=== PATIENT | male | born 1935 | race Caucasian/White ===

== ENCOUNTER → 2016-11-05 | Outpatient (CLI) | payer OTHER, BC ==
[~2016-11-05] MED LIST: ASPI81TA21 PO; CHOL1TAB42 PO; CIPR0.3S4 OPL; COEN100C15 PO; DMX250; LOSA50TA54 PO; MISC1CAP60 PO; MULT-845 PO; PRED1SUS3; SIMV40TA4 PO; TERA5CAP PO; cipro
--- NOTE | 2016-11-05 22:24 | DIAGNOSTIC IMAGING REPORT ---
TWO VIEW CHEST CLINICAL HISTORY: Abnormal weight loss. FINDINGS: PA and lateral chest radiographs are compared to study dated 04/26/2008 and correlated with chest CT dated 07/30/2005. The PA view is degraded by patient rotation. The heart is enlarged. The mediastinal contour is within normal limits. The pulmonary vasculature is noncongested. Chronic interstitial thickening is similar to previous. No airspace consolidation or pleural effusion is identified. There is no pneumothorax. The skeletal structures are osteopenic. Degenerative change is noted throughout the thoracic spine. There are healed right-sided rib fractures. IMPRESSION: 1. Cardiomegaly with no active disease in the chest. 2. No pulmonary lesion is identified by chest x-ray. Note that x-rays is insensitive as a screening tool for lung cancer. If there is clinical concern for pulmonary neoplasm then a chest CT should be considered. Electronically signed by: Kole Sawyer M.D. 11/05/2016 10:23 PM Dictated Date/Time: 11/05/2016 10:21 PM
== END | disposition home or self-care (01) ==
LOC: C.RAD 21:07
PROVIDERS: ATTEND Pediatrics
DX: R63.4 Abnormal weight loss (principal); R09.89 Other specified symptoms and signs involving the circulatory and respiratory systems; I51.7 Cardiomegaly

== ENCOUNTER → 2017-06-14 | Outpatient (CLI) | payer OTHER, BC ==
[~2017-06-14] MED LIST changes: +OPTIRAY 320 IV PRN
--- NOTE | 2017-06-14 14:57 | DIAGNOSTIC IMAGING REPORT ---
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 TECHNIQUE: Multidetector CT of the abdomen and pelvis was performed after the administration of intravenous contrast. IV contrast: 120 mL of Optiray 320. A dose lowering technique was used consistent with the principles of ALARA (as low as reasonably achievable). COMPARISON: 05/16/2013. CT DOSE (mGy.cm): The estimated cumulative dose is 1164.[address] chest. 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 Lung bases: Minimal basilar opacities, likely atelectasis. Normal heart size. Coronary artery and aortic valve calcification. No pericardial or pleural effusion. Liver: Normal morphology. Irregular hypodensity in segment 4A (series 6 image 88), present on prior exam and possibly hepatic cyst or hemangioma. Subcentimeter hypodensity in segment 8 (series 6 image 69), indeterminate but likely cyst. 2 additional hypodensities evident in segment 5, unchanged from prior and likely hepatic cysts (series 6 image 162). Patent hepatic vasculature. Biliary: No intrahepatic or extrahepatic biliary ductal dilatation. Gallbladder decompressed. Pancreas: Normal. Spleen: Normal. Adrenal glands: Normal. Kidneys and ureters: Few hypodensities in the kidneys, the largest on the right measuring 1.7 cm, likely simple cysts though many too small to characterize. No nephrolithiasis. No hydronephrosis. Ureters normal. Bladder: Circumferential bladder wall thickening likely indicates chronic outlet obstruction. Pelvic organs: Prostate enlargement likely secondary to benign prostatic hyperplasia. Seminal vesicles are prominent bilaterally with superolateral extension of the left seminal vesicle beyond what is expected (series 6 image 354). Bowel: Limited diverticulosis of the sigmoid colon. The appendix is normal. No bowel obstruction. Peritoneal cavity: No free fluid or intraperitoneal gas. Lymph nodes: No enlarged lymph nodes in the abdomen or pelvis. Vasculature: Atherosclerosis of the normal caliber abdominal aorta. IVC patent. Abdominal wall: Bilateral varicoceles may be present. Musculoskeletal: Degenerative changes of the spine. Sclerotic lesion in the L5 vertebral body likely bone island. IMPRESSION: 1. No definitive evidence of intra-abdominal malignancy. No lymphadenopathy. 2. Prostatomegaly likely secondary to underlying benign prostatic hyperplasia. However, given the somewhat of normal prominence of the left seminal vesicle, MR of the prostate to be considered for further evaluation. The report will be called/faxed according to standard departmental protocol. Electronically signed by: Christian Hayes M.D. 06/14/2017 2:55 PM Dictated Date/Time: 06/14/2017 2:47 PM
--- NOTE | 2017-06-14 14:57 | DIAGNOSTIC IMAGING REPORT ---
CT OF THE CHEST WITH IV CONTRAST CLINICAL HISTORY: Cough. Abnormal weight loss. COMPARISON STUDY: Chest CT July 30, 2005. TECHNIQUE: Following IV administration of 120 mL of Optiray-320, helical axial images of the chest were obtained. Sagittal and coronal reconstructions were viewed as well as maximal intensity projections on an independent 3-D workstation. A dose lowering technique was utilized adhering to the principles of ALARA. CT DOSE: 1164.40 mGycm FINDINGS: No enlarged axillary or hilar lymph nodes are present. There are few mildly enlarged mediastinal lymph nodes, including a precarinal lymph node that measures 1.1 cm in short axis diameter. There is an additional precarinal lymph node that measures 1.2 cm in short axis diameter. These nodes have mildly increased in size since exam of July 24, 2005. The heart is mildly enlarged. There is no pneumothorax or pleural effusion. There are no suspicious pulmonary nodules. There is no consolidation to suggest pneumonia. No suspicious osseous lesions are present. The abdomen and pelvis will be reported separately. A segment 8/4A hepatic lesion was shown on earlier studies to likely reflect a hemangioma. This is unchanged. IMPRESSION: 1. Several mildly enlarged mediastinal lymph nodes which have increased in size since chest CT of July 24, 2005. These nodes are not overtly suspicious but remain indeterminate. A follow up chest CT in 6 months to ensure stability is recommended. 2. No suspicious prominent nodules. 3. No acute intrathoracic findings. Electronically signed by: Terrell Turk M.D. 06/14/2017 2:55 PM Dictated Date/Time: 06/14/2017 2:42 PM
== END | disposition home or self-care (01) ==
LOC: C.CTS 14:01
PROVIDERS: ATTEND Family Medicine
DX: R63.4 Abnormal weight loss (principal); R51 Headache; R05 Cough; Z79.899 Other long term (current) drug therapy

== ENCOUNTER → 2017-07-03 | Outpatient (CLI) | payer OTHER, BC ==
[~2017-07-03] MED LIST changes: +ALEN1TAB PO; +ATOR-24 PO; +CHOL20007 PO; +DRY EYES OPB; +FERR27TA5 PO; +FLV1 PO; +METH2.5T PO; +MISCTAB78 PO; -OPTIRAY 320 IV PRN; +RMCI IV; +TAMS0.4C38 PO
--- NOTE | 2017-07-04 08:25 | DIAGNOSTIC IMAGING REPORT ---
PET/CT SKULL-THIGH CLINICAL HISTORY: 82 years-old Male presenting with MALIGNANT (PRIMARY) NEOPLASM,UNSPECIFIED, enlarged mediastinal lymph nodes, tonsillar findings. TECHNIQUE: PET/CT was performed from the vertex through the proximal thighs following the intravenous administration of 13.22 mCi of F18-FDG. Blood glucose level 86 mg/dL. The injection was performed at 2:14 PM and imaging began at 3:[address] was performed for attenuation correction purposes and anatomic localization. COMPARISON: Chest CT from 06/14/2017, CT of the abdomen and pelvis from 06/14/2017. CT DOSE (mGy.cm): The estimated cumulative dose is 1564.09. FINDINGS: Head and neck: No FDG-avid mass in the visualized portion of the head or neck. No FDG avid or enlarged lymph nodes in the neck. Chest: Normal thyroid and thoracic inlet. Prominent mediastinal and bilateral hilar lymph nodes, which are mildly FDG avid. An index node in the precarinal region measures 13 mm in the short axis. Atherosclerosis of the aorta. Aortic valve, mitral annular, and coronary artery calcification. Normal heart size. No pericardial or pleural effusion. Subpleural solid 3 mm nodule at the right apex (series 2 image 63). The degree of volume loss and consolidation in the right lung on prior chest CT from 2006 makes assessment for the chronicity of this finding difficult. This was present on most recent CT earlier this month. Minimal dependent changes likely atelectasis. Peripheral solid triangular 3 mm nodule in the lingula was not present in 2006 but is unchanged from most recent prior. Central airways patent. Abdomen and pelvis: Normal physiologic distribution of radiotracer in the gastrointestinal and genitourinary tracts. No FDG avid lymphadenopathy or mass lesion. Photopenic lesion at the medial lower pole the right kidney likely simple cyst. Circumferentially thick-walled bladder suggest chronic outlet obstruction. Prostatic megaly. No focal FDG avidity within the prostate. No focal FDG avidity within the seminal vesicles. Moderate stool burden in the rectum. Musculoskeletal: Degenerative changes in the spine. No destructive or FDG avid osseous lesion. IMPRESSION: 1. Mildly FDG avid mediastinal and bilateral hilar lymphadenopathy. No other sites of lymphadenopathy. The degree of FDG avidity could suggest mild reactive lymph nodes though no evidence of an acute intrathoracic is suggested. A low level lymphomatous disease is not excluded. Differential considerations include sarcoidosis. Continued follow-up recommended. 2. Solid pulmonary nodules measuring up to 3 mm. 3. No abnormality of the head or neck. 4. Circumferential bladder wall thickening likely chronic bladder outlet obstruction in the setting of prostatomegaly. Electronically signed by: Christian Hayes M.D. 07/04/2017 8:23 AM Dictated Date/Time: 07/04/2017 6:55 AM
== END | disposition home or self-care (01) ==
LOC: C.PET 13:55
PROVIDERS: ATTEND Internal Medicine Hematology & Oncology
DX: C80.1 Malignant (primary) neoplasm, unspecified (principal)

== ENCOUNTER 2017-07-11 09:56 | Day surgery (SDC) | payer OTHER, BC ==
[2017-07-09 13:25] VITALS: BMI 23.0
--- NOTE | 2017-07-09 13:46 | PAT Medication Instructions ---
Service Date Jul 09, 2017. Current Home Medication List Alendronate Sodium (Binosto), 70 MG PO WEEKLY Aspirin Enteric Coated (Ecotrin Or Generic), 81 MG PO HS Atorvastatin (Lipitor), 40 MG PO Q2D Cholecalciferol (Vitamin D3), 1 TAB PO QPM Coenzyme Q10 (Ubidecarenone) (Co Q10), 100 MG PO HS Ferrous Gluconate (Iron), 27 MG PO QPM Folic Acid (Folic Acid), 1 MG PO QPM Infliximab (Remicade), 100 MG IV [id number] Losartan Potassium (Cozaar), 50 MG PO HS Methotrexate (Methotrexate), 5 TAB PO weeekly Misc Natural Products (Osteo Bi-Flex Advanced Do), 1 TAB PO QPM Multiple Vitamins W/ Minerals (Centrum Silver Adult 50+), 1 TAB PO HS Tamsulosin Hcl (Flomax), 0.4 MG PO QPM [Dry Eyes], 1 DROP OPB PRN Medication Instructions For Your Scheduled Surgery - Hold the following medications 2 weeks prior to surgery: Misc Natural Products (Osteo Bi-Flex Advanced Do), 1 TAB PO QPM Coenzyme Q10 (Ubidecarenone) (Co Q10), 100 MG PO HS - Check with surgeon and prescribing physician for instructions: Aspirin Enteric Coated (Ecotrin Or Generic), 81 MG PO HS Methotrexate (Methotrexate), 5 TAB PO weekly Infliximab (Remicade), 100 MG IV [id number] - Hold the following medications 24 hours prior to surgery: Losartan Potassium (Cozaar), 50 MG PO HS - Continue as directed: Atorvastatin (Lipitor), 40 MG PO Q2D Alendronate Sodium (Binosto), 70 MG PO WEEKLY - Take the following medications the morning of surgery with a sip of water: [Dry Eyes], 1 DROP OPB PRN (if needed) - Take the following medications as scheduled the night before surgery: [Dry Eyes], 1 DROP OPB PRN (if needed) Tamsulosin Hcl (Flomax), 0.4 MG PO QPM Multiple Vitamins W/ Minerals (Centrum Silver Adult 50+), 1 TAB PO HS Ferrous Gluconate (Iron), 27 MG PO QPM Folic Acid (Folic Acid), 1 MG PO QPM Cholecalciferol (Vitamin D3), 1 TAB PO QPM If you have any questions please call us at [phone] or [phone] or [phone]
--- NOTE | 2017-07-09 14:42 | DIAGNOSTIC IMAGING REPORT ---
FLEXION-EXTENSION LATERAL VIEWS OF CERVICAL SPINE (3 VIEWS) CLINICAL HISTORY: PREOP, RHEUMATOID ARTHRITIS COMPARISON STUDY: No previous studies for comparison. FINDINGS: There are multilevel degenerative changes present. The prevertebral soft tissues are normal. There is 3.6 mm of retrolisthesis of C4 on C5. There is no significant instability on flexion or extension. IMPRESSION: 1. Multilevel degenerative change 2. No evidence of instability on flexion or extension Electronically signed by: Emmanuel Crespo M.D. 07/09/2017 2:41 PM Dictated Date/Time: 07/09/2017 2:39 PM
[2017-07-09 15:01] LABS: PTT PATIENT 28.9 SECONDS (21.0-31.0)
[~2017-07-11] VITALS: Ht 172.7 cm; Wt 66.5 kg
--- NOTE | 2017-07-11 06:36 | History and Physical ---
History & Physical Date of Service Jul 11, 2017. History & Physical History of Present Illness 82-year-old gentleman here for EBUS evaluation of mediastinal adenopathy: Patient has been seen by his primary care as well as Dr. King from the [facility]. They are both concerned as this patient is noted to have a 3-6 months window of unintentional weight loss approximately 30 pounds with a chronic intermittent productive cough at that time and notable night sweats. The patient is from [facility] but has no history of active TB. Approximately a year ago he was diagnosed with rheumatoid arthritis and has been treated with methotrexate, prednisone and Remicade. 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 He has been exposed to multiple different worker's from around the world as well as multiple different agents in an older buildings environment. At this time the patient does note over the last 2 weeks he has had mild improvement in his cough but continues to have postnasal drip and some mild signs of sinusitis. At this time he denies current night sweats but has had them in the past. He also denies continue weight loss, pleurisy or classic cardiac chest pain. CT chest abdomen 06/14/2017: Mild to moderately Enlarged mediastinal hilar lymph nodes which have notably increased in size since CT of 07/24/2005 No definitive evidence of intra-abdominal malignancy/adenopathy PmHx: 1. Microcytic anemia/anemia of chronic disease 2. Adenomatous polyp of the colon with moderately severe atypia 3. Benign prostatic hypertrophy 4. Tonsillitis 5. Nose bleeds has been evaluated by ENT physician Dr. Harden 6. 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 Colonoscopy-polypectomy 2. 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 Family history of Cancer 2. Family history of Heart Disease 3. Family history of Hypertension Social History Alcohol Use (History) Former smoker (Z87.891) Former smoker (Z87.891) Marital History - Home medications 1. Alendronate 2. Aspirin 81 mg 3. Atorvastatin 40 mg 4. Benzonate 100 mg q.8 hours 5. Choecalciferol 1000 units daily 6. Iron sulfate 325 mg daily 7. Folic acid replacement 8. Glucosamine chondroitin 9. Infliximab IV 10. Losartan daily 11. Methotrexate weekly 12. Prednisone 2.5 mg daily 13. To wean sildenafil 100 milligram tablets p.o. daily 14. Tomsulosin 0.4 mg extended release Allergies 1. No Known Drug Allergies Vital Signs Height: 5 ft 9 in Weight: 151 lb 9 oz BMI Calculated: 22.38 BSA Calculated: 1.84 O2 Saturation: 98 Temperature: 98 F, Oral Blood Pressure: 126 / 72, LUE, Sitting Heart Rate: 78 Respiration: 16 Physical Exam Constitutional General appearance: Abnormal. Thin male but in no apparent distress. Eyes Conjunctiva and lids: No swelling, erythema, or discharge. Pupils and irises: Equal, round and reactive to light. Ears, Nose, Mouth, and Throat External inspection of ears and nose: Normal. Otoscopic examination: Abnormal. Bilateral nasal erythema right greater than left no active bleeding. Oropharynx: Abnormal. Notable posterior erythema with cobblestoning. Pulmonary Respiratory effort: No increased work of breathing or signs of respiratory distress. Auscultation of lungs: Clear to auscultation. Cardiovascular Palpation of heart: Normal PMI, no thrills. Auscultation of heart: Normal rate and rhythm, normal S1 and S2, without murmurs. Examination of extremities for edema and/or varicosities: Normal. Abdomen Abdomen: Non-tender, no masses. Liver and spleen: No hepatomegaly or splenomegaly. Lymphatic Palpation of lymph nodes in neck: No lymphadenopathy. Musculoskeletal Gait and station: Normal. Digits and nails: Normal without clubbing or cyanosis. Inspection/palpation of joints, bones, and muscles: Normal. Skin Skin and subcutaneous tissue: Normal without rashes or lesions. Neurologic Cranial nerves: Cranial nerves 2-12 intact. Reflexes: 2+ and symmetric. Sensation: No sensory loss. Psychiatric Orientation to person, place and time: Normal. Mood and affect: Normal.
[~2017-07-11 09:56] MED LIST changes: -CHOL1TAB42 PO; -CIPR0.3S4 OPL; -DMX250; +LACTATED RINGER'S 1000ML 1,000 ML IV SCH; -MISC1CAP60 PO; -PRED1SUS3; -SIMV40TA4 PO; -TERA5CAP PO; -cipro
[2017-07-11 10:25] VITALS: BP 142/78; PULSE 60; TEMP 36.6; O2SAT 97; Ht 172.7 cm; Wt 66.5 kg
[2017-07-11] MEDS ORDERED: NEOSTIGMINE METHYLSULFATE 5 MG/5 ML SYR ONE (11:03)
[2017-07-11] MEDS ORDERED: GLYCOPYRROLATE INJ 0.2 MG/ML VIAL ONE (11:03)
[2017-07-11] MEDS ORDERED: PROPOFOL IV EMULSION 10 MG/ML 20 ML VIAL IV ONE (11:03)
[2017-07-11] MEDS ORDERED: ONDANSETRON INJ 2 MG/ML 2 ML VIAL ONE (11:03)
[2017-07-11] MEDS ORDERED: LIDOCAINE HCL 2% 2 ML VIAL (20MG/ML) ONE (11:03)
[2017-07-11] MEDS ORDERED: DEXAMETHASONE SOD INJ 4 MG/ML VIAL ONE (11:03)
[2017-07-11] MEDS ORDERED: MIDAZOLAM HCL 1 MG/ML 2ML VIAL ONE (11:04)
[2017-07-11] MEDS ORDERED: FENTANYL CITRATE INJ 50 MCG/1 ML 2 ML VIAL ONE (11:04)
[2017-07-11] MEDS ORDERED: HYDROmorphone INJ 0.5 MG/0.5 ML SYR IV PRN (11:15)
[2017-07-11] MEDS ORDERED: EpHEDrine SULFATE INJ 50 MG/ML AMP IV PRN (11:15)
[2017-07-11] MEDS ORDERED: MEPERIDINE HCL 25 MG/ML CARP IV PRN (11:15)
[2017-07-11] MEDS ORDERED: ATROPINE SULFATE 0.1 MG/ML 5ML SYR IV PRN (11:15)
[2017-07-11] MEDS ORDERED: ONDANSETRON INJ 2 MG/ML 2 ML VIAL IV PRN (11:15)
[2017-07-11] MEDS ORDERED: FENTANYL CITRATE INJ 50 MCG/1 ML 2 ML VIAL IV PRN (11:15)
--- NOTE | 2017-07-11 11:32 | History & Physical Bridge Note ---
H&P Re-Evaluation Bridge Note: I have examined the patient, reviewed the History & Physical and in the interval since the performance of the History & Physical I have noted the following changes of clinical significance: No changes noted
[2017-07-11] MEDS ORDERED: EpHEDrine SULFATE 50MG/5ML SYR ONE (12:22)
--- NOTE | 2017-07-11 12:47 | Bronchoscopy Procedure Note ---
Bronchoscopy Procedure Note Procedure: Flexible-Bronchoscopy, EBUS, FNA, BAL Consent: Obtained through the patient placed into the chart Pre-Procedural Dx: Mediastinal adenopathy Post-Procedural Dx: Mediastinal adenopathy Analgesia: GETA Sedation: GETA Procedure: The Olympus video bronchoscope and EBUS scope were used for this procedure Initially the flexible bronchoscope was used for evaluation of the airways. An LMA Size 5 was used for this procedure and properly positioned Vocal Cords: Anatomically WNL Sub-Glottis & Trachea: Anatomically WNL Sandra: Anatomically within normal limits Right bronchial tree: Right mainstem bronchus: Anatomically within normal limits Right upper lobe: Anatomically within normal limits Bronchus intermedius: Anatomically within normal limits Right middle lobe: Anatomically within normal limits Right lower lobe: Anatomically within normal limits Findings: No significant findings noted Left bronchial tree: Left mainstem bronchus: Anatomically within normal limits Left upper lobe: Anatomically within normal limits Lingula: Anatomically within normal limits Left lower lobe: Anatomically within normal limits Findings: No significant findings noted EBUS/LASHON: FNA Yasir Stations: 7: # of passes 6 BAL: Lingula EBL: none Complications: None Follow-up: PACU
--- NOTE | 2017-07-11 12:50 | Discharge Instructions ---
Discharge Instructions Date of Service Jul 11, 2017. Admission Reason for Admission: Medial Stinal Lymphadenopathy Discharge Discharge Diagnosis / Problem: Mediastinal adenopathy Discharge Goals Goal(s): Diagnostic testing Activity Recommendations Activity Limitations: resume your previous activity Driving or Machine Use: resume 1 day after discharge . Instructions / Follow-Up Instructions / Follow-Up With Dr. Suazo in the [facility] pulmonary clinic Current Hospital Diet Patient's current hospital diet: Discharge Diet Recommended Diet: Regular Diet Procedures Procedures Performed: Endobronchial Ultrasound Guided Bronchoscopy, Flexible Bronchoscopy, Fine Needle Aspiration, Bronchial Washings Pending Studies Studies pending at discharge: no Medical Emergencies . Who to Call and When: Medical Emergencies: If at any time you feel your situation is an emergency, please call 911 immediately. . Non-Emergent Contact Non-Emergency issues call your: [employer] Call Non-Emergent contact if: you have a fever, temperature is above 101 . . "Provider Documentation" section prepared by Asa Suazo. .
[2017-07-11] MEDS: LABETALOL HCL IV 5 MG/ML 20ML IV PRN ×3 (13:47→14:12)
[2017-07-11 14:30] VITALS: BP 196/92; PULSE 62; TEMP 36.6; O2SAT 95
--- NOTE | 2017-07-11 14:40 | Anesthesiology Progress Note ---
Anesthesia Post Op Note Date & Time Jul 11, 2017 at 14:40 Vital Signs Pain Intensity: 0 Vital Signs Past 12 Hours Date Time Temp Pulse Resp B/P (MAP) Pulse Ox O2 Delivery O2 Flow Rate FiO2 07/11/17 14:20 65 15 179/96 99 Room Air 07/11/17 14:10 62 28 179/101 100 Room Air 07/11/17 14:00 59 16 179/91 100 Room Air 07/11/17 13:50 36.3 64 20 185/106 100 Room Air 07/11/17 13:40 63 13 185/94 100 Room Air 07/11/17 13:30 69 18 176/95 100 Room Air 07/11/17 13:20 77 24 184/93 100 Oxymask 10 07/11/17 13:10 88 23 168/91 100 Oxymask 10 07/11/17 13:01 36.5 81 16 174/86 99 Oxymask 10 07/11/17 10:25 36.6 60 18 142/78 (99) 97 Room Air Notes Mental Status: alert / awake / arousable, participated in evaluation Pt Amnestic to Procedure: Yes Nausea / Vomiting: adequately controlled Pain: adequately controlled Airway Patency, RR, SpO2: stable & adequate BP & HR: stable & adequate Hydration State: stable & adequate Anesthetic Complications: no major complications apparent
[2017-07-11 15:00] VITALS: BP 166/79; PULSE 70; O2SAT 92
[2017-07-11 15:30] VITALS: BP 165/83; PULSE 74; TEMP 36.7; O2SAT 95
--- NOTE | 2017-07-11 15:58 | Consultant Recommendations ---
Varnisher Apprentice Recommendations Date of Service Jul 11, 2017. Varnisher Apprentice Recommendations Pulmonary Follow Up with Dr. Suazo July 18, 2017 at 1:00pm
== END 2017-07-11 16:06 | disposition home or self-care (01) ==
LOC: C.ACU 09:56
PROVIDERS: ATTEND Internal Medicine Critical Care Medicine
DX: R59.0 Localized enlarged lymph nodes (principal); M06.9 Rheumatoid arthritis, unspecified; N40.0 Benign prostatic hyperplasia without lower urinary tract symptoms; Z82.49 Family history of ischemic heart disease and other diseases of the circulatory system; Z87.891 Personal history of nicotine dependence; Z79.82 Long term (current) use of aspirin; Z98.42 Cataract extraction status, left eye; Z90.89 Acquired absence of other organs; I10 Essential (primary) hypertension; E78.5 Hyperlipidemia, unspecified; M19.90 Unspecified osteoarthritis, unspecified site; M81.0 Age-related osteoporosis without current pathological fracture

== ENCOUNTER → 2017-11-05 | Outpatient (CLI) | payer OTHER, BC ==
[~2017-11-05] MED LIST changes: +ASPI-319 PO; -ASPI81TA21 PO; -LACTATED RINGER'S 1000ML 1,000 ML IV SCH
[2017-11-05 17:04] LABS: BLOOD UREA NITROGEN 13 mg/dl (7-18); CREATININE 0.93 mg/dl (0.60-1.40)
== END | disposition home or self-care (01) ==
LOC: C.LAB1850 16:02
PROVIDERS: ATTEND Internal Medicine Critical Care Medicine
DX: R59.0 Localized enlarged lymph nodes (principal); R93.8 Abnormal findings on diagnostic imaging of other specified body structures; I10 Essential (primary) hypertension

== ENCOUNTER → 2017-11-19 | Outpatient (CLI) | payer OTHER, BC ==
[~2017-11-19] MED LIST changes: +OPTIRAY 320 IV PRN
--- NOTE | 2017-11-19 10:11 | DIAGNOSTIC IMAGING REPORT ---
CT OF THE CHEST WITH IV CONTRAST CLINICAL HISTORY: Mediastinal lymphadenopathy. COMPARISON STUDY: Chest CT June 14, 2017 and July 25, 2015. PET/CT July 03, 2017. TECHNIQUE: Following IV administration of 91 mL of Optiray-320, helical axial images of the chest were obtained. Sagittal and coronal reconstructions were viewed as well as maximal intensity projections on an independent 3-D workstation. A dose lowering technique was utilized adhering to the principles of ALARA. CT DOSE: 320.47 mGy.cm FINDINGS: The heart is mildly enlarged. There is no pericardial effusion. A prominent right hilar lymph node has slightly decreased in size since CT of June 14, 2017. This node measures 9 mm in short axis diameter. A precarinal lymph node shown on image 116 of 317 measures 9 mm in short axis diameter. It previously measured 1.2 cm. A lower right paratracheal lymph node shown on image 107 measures 1.1 cm in short axis diameter. This is slightly decreased since prior PET/CT. No suspicious pulmonary nodules are present. Central airways are patent. There is no consolidation. Bony thorax and upper abdomen are unremarkable. IMPRESSION: 1. Slight interval decrease in size of mediastinal and hilar lymph nodes since prior exam of July 03, 2017. This suggests a benign etiology. 2. Mild cardiomegaly. 3. No acute intrathoracic findings. Electronically signed by: Terrell Turk M.D. 11/19/2017 10:10 AM Dictated Date/Time: 11/19/2017 9:58 AM
== END | disposition home or self-care (01) ==
LOC: C.CTS 09:43
PROVIDERS: ATTEND Internal Medicine Critical Care Medicine
DX: R59.0 Localized enlarged lymph nodes (principal)

== ENCOUNTER 2021-10-26 17:28 | Observation (INO) ==
--- NOTE | 2021-10-26 17:48 | Emergency Department Note ---
Impression & Plan Fall, HTN (hypertension), Laceration, Acute confusion ED Provider Note NAME: MICHELLE CARDENAS AGE: 86 SEX: M : 1935 ARRIVES VIA: Ambulance INFORMANT: Patient, EMS ED PROVIDER(S): Jose Martini DO CHIEF COMPLAINT: Fall HPI: Patient is an 86-year-old gentleman with a past medical history of BPH, elevated PSA, rheumatoid arthritis, hypertension, BPH who presents to the ER following a mechanical fall. He notes he was walking downtown at [employer] and was going around the stadium and was going down on the incline and lost control and fell and hit his head. He does not believe he passed out. He does admit to a headache. Denies any neck pain. No chest pain or shortness of breath. No belly or back pain. He does complain of right hand/wrist pain. No double vision. No pain with biting down. ROS: See above HPI for pertinent positives & negatives. A total of 10 systems reviewed and were otherwise negative. PAST MEDICAL HISTORY:See Below PAST SURGICAL HISTORY:See Below FAMILY HISTORY:See Below SOCIAL HISTORY:See Below HOME MEDICATIONS:See Below ALLERGIES:See Below VITALS:See Below PHYSICAL EXAMINATION: GENERAL: alert, well appearing, well nourished, no distress, non-toxic HEAD: Bruising and swelling over the right eyebrow and around the right eye including the upper and lower lids with the right eyes swollen shut. Abrasion/laceration over the bridge of nose with small amount of venous oozing and multiple small lacerations over the right eyebrow. EYE EXAM: normal conjunctiva, PERRL and EOM's intact OROPHARYNX: no exudate, no erythema, lips, buccal mucosa, and tongue normal and mucous membranes are moist NECK: supple, no nuchal rigidity, no adenopathy, non-tender CHEST: stable to compression anteriorly and posteriorly LUNGS: clear to auscultation. Normal chest wall mechanics HEART: no murmurs, S1 normal and S2 normal ABDOMEN: abdomen soft, non-tender, normo-active bowel sounds, no masses, no rebound or guarding. PELVIS: stable to compression anteriorly and posteriorly BACK: Back is symmetrical on inspection and there is no deformity, no midline tenderness, no CVA tenderness. UPPER EXTREMITIES: full active and passive range of motion of all joints without tenderness to palpation LOWER EXTREMITIES: full active and passive range of motion of all joints without tenderness to palpation NEURO EXAM: Awake alert oriented to person, place but not year, with repetitive statements, cranial nerves II-XII grossly intact, normal speech, no gross weakness of arms, no gross weakness of legs. GCS: 14. MEDICAL DECISION MAKING: Patient is an 86-year-old gentleman who presents ER following mechanical fall with repetitive questioning. IV was established blood work is obtained. Labs show no significant leukocytosis or anemia. BMP along with LFTs bilirubin and troponin was unremarkable. UA was clean. Alcohol and COVID were negative. CT head face and cervical spine showed no acute fractures. On exam he has no double vision he has full range of motion of the right eye. Lacerations were repaired by my PA. Please see her note for further details. Tetanus was last updated in 2020 per chart. Confusion has been improving significantly but due to the persistent confusion discussed with the hospitalist for further evaluation Christine Willis. Triage Nursing notes reviewed. Limited review of prior medical records performed Vital Signs: reviewed and remarkable for HTN and tachy Differential diagnosis: Differential diagnoses include major intracranial, cervical, spinal, thoracic, abdominal, pelvic and neurologic injury. Fracture, contusion, sprain, strain, laceration, abrasions included as well. ER treatment provided: See below Diagnostics interpreted by me: ECG: Sinus rhythm rate 96 Left axis No PVCs QTC 426 Cardiac Monitoring: An order was placed for continuous cardiac monitoring. The monitor shows a rate of 112 with sinus rhythm. Laboratory studies: As stated above and show below. 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 Rheumatoid arthritis of upper arm Rib fractures Tinnitus Surgical History H/O hernia repair History of tonsillectomy Family History Mother Cancer Other No family history of adverse response to anesthesia No family history of bleeding disorder Social History Smoking Status: Never smoker Hx Alcohol Use: Yes Hx Substance Use: No Preferred Language: Iranian Current Living Situation: Alone current occupational status: retired Feels Safe at Home: Yes Allergies Allergies Allergy/AdvReac Type Severity Reaction Status Date / Time No Known Drug Allergies Allergy Verified 08/03/21 15:47 Home Meds Home Medications Medication Instructions Recorded Confirmed alendronate 70 mg tablet 70 mg PO GABRIEL 04/01/18 08/03/21 aspirin 81 mg tablet,delayed 81 mg PO .Q2D@HS 04/01/18 08/03/21 release (Adult Low Dose Aspirin) atorvastatin 40 mg tablet 40 mg PO HS 04/01/18 08/03/21 cholecalciferol (vitamin D3) 25 1,000 units PO HS 04/01/18 08/03/21 mcg (1,000 unit) capsule folic acid 1 mg tablet 1 mg PO HS 04/01/18 08/03/21 methotrexate sodium 2.5 mg tablet 15 mg PO WE 04/01/18 08/03/21 pqmwabvx-pzn-foezl acid 300 1 tab PO HS 04/01/18 08/03/21 mcg-lycopene 600 mcg-lutein 300 mcg tablet (Centrum Silver Men) tamsulosin 0.4 mg capsule (Flomax) 0.4 mg PO HS 04/01/18 08/03/21 Previous Rx's Medication Instructions Recorded gabapentin 100 mg capsule 100 mg PO .QHS #20 caps 05/31/20 (Neurontin) dutasteride 0.5 mg capsule 0.5 mg PO DAILY #90 caps 07/03/21 Results & Data (ED) Vital Signs Vital Signs - 24 hr 10/26/21 17:33 10/26/21 17:37 10/26/21 17:45 Pulse Rate 119 H Pulse Rate [Right Finger] 106 H Pulse Rhythm [Right Finger] Regular Pulse Strength [Right Finger] Normal Respiratory Rate 20 20 Respiratory Effort / Characteristics Non-Labored Non-Labored Respiratory Depth Normal Normal Blood Pressure 168/110 H Blood Pressure [Right Arm] 168/110 H Blood Pressure Mean 129 Blood Pressure Mean [Right Arm] 129 Blood Pressure Position [Right Arm] Pulse Oximetry 98 95 98 Oxygen Delivery Method Room Air Room Air Room Air Sepsis Recent Fever Within 48 Hours No Sepsis New/Unexplained Change in Mental Status N/A Sepsis Action Taken by Nursing No Action Required 10/26/21 19:21 10/26/21 19:30 10/26/21 20:00 Pulse Rate 107 H 99 H Pulse Rate [Right Finger] 100 H Pulse Rhythm [Right Finger] Pulse Strength [Right Finger] Respiratory Rate 16 14 16 Respiratory Effort / Characteristics Non-Labored Spontaneous Respiratory Depth Normal Blood Pressure 179/113 H 188/103 H Blood Pressure [Right Arm] 171/123 H Blood Pressure Mean 135 131 Blood Pressure Mean [Right Arm] 139 Blood Pressure Position [Right Arm] Lying Pulse Oximetry 98 95 97 Oxygen Delivery Method Room Air Sepsis Recent Fever Within 48 Hours Sepsis New/Unexplained Change in Mental Status Sepsis Action Taken by Nursing Laboratory Data Result diagrams: 10/26/21 17:35 10/26/21 17:35 Lab Results 10/26/21 10/26/21 10/26/21 Range/Units 17:35 17:35 17:35 WBC 4.83 (4.8-10.8) K/ul RBC 4.72 (4.63-6.08) M/uL Hgb 13.5 L (14.0-18.0) g/dl Hct 40.3 (40.1-51.0) % MCV 85.4 (80.0-100.0) fL MCH 28.6 (25.0-34.0) pg MCHC 33.5 (32.0-36.0) g/dL RDW Std Deviation 50.5 H (36.4-46.3) fL RDW Coeff of Daryl 16.4 H (11.5-14.5) % Plt Count 193 (130-400) K/uL MPV 12.2 (9.4-12.4) fL Immature Gran % (Auto) 0.4 % Neut % (Auto) 62.7 % Lymph % (Auto) 23.0 % [place] % (Auto) 11.6 % Eos % (Auto) 1.9 % Baso % (Auto) 0.4 % Neut # (Auto) 3.03 (1.4-6.5) K/uL Lymph # (Auto) 1.11 L (1.2-3.4) K/uL [place] # (Auto) 0.56 (0.24-0.82) K/uL Eos # (Auto) 0.09 (0-0.50) K/uL Baso # (Auto) 0.02 (0-0.2) K/uL Immature Gran # (Auto) 0.02 (0.00-0.02) K/uL Sodium 141 (136-145) mmol/L Potassium 3.5 (3.5-5.1) mmol/L Chloride 104 (98-107) mmol/L Carbon Dioxide 28 (21-32) mmol/L Anion Gap 9 (3-11) BUN 15 (6-23) mg/dl Creatinine 0.77 (0.6-1.4) mg/dl Est Cr Clr Drug Dosing 69.1 ml/min Est GFR ( Amer) 96.6 ml/min Est GFR (Non-Af Amer) 83.3 ml/min BUN/Creatinine Ratio 19.5 (10-20) Glucose 87 (70-99(Fasting)) mg/dl Calcium 9.0 (8.5-10.1) mg/dl Total Bilirubin 0.7 (0.2-1.0) mg/dl AST 34 (13-39) U/L ALT 29 (7-52) U/L Alkaline Phosphatase 77 (34-104) U/L Troponin I High Sens 10.6 (0-20) pg/ml Total Protein 7.1 (6.0-8.3) gm/dl Albumin 4.1 (3.4-5.0) gm/dl Globulin 3.0 (2.5-4.0) gm/dl Albumin/Globulin Ratio 1.4 (0.9-2) Urine Color Urine Appearance (Clear) Urine pH (4.5-7.5) Ur Specific Taberg (1.000-1.030) Urine Protein (Negative) Urine Glucose (UA) (Negative) Urine Ketones (Negative) Urine Blood (Negative) Urine Nitrite (Negative) Urine Bilirubin (Negative) Urine Urobilinogen (Negative) Ur Leukocyte Esterase (Negative) Urine WBC (Auto) (0-5) /hpf Urine RBC (Auto) (0-4) /hpf U Hyaline Cast (Auto) (0-5) /lpf U Epithel Cells (Auto) (0-5) /lpf Urine Bacteria (Auto) (Negative) Ethyl Alcohol mg/dL < 10.0 (<10.0) mg/dl SARS-CoV-2, RNA, NAAT (NEGATIVE) 10/26/21 10/26/21 Range/Units 18:02 Unknown WBC (4.8-10.8) K/ul RBC (4.63-6.08) M/uL Hgb (14.0-18.0) g/dl Hct (40.1-51.0) % MCV (80.0-100.0) fL MCH (25.0-34.0) pg MCHC (32.0-36.0) g/dL RDW Std Deviation (36.4-46.3) fL RDW Coeff of Daryl (11.5-14.5) % Plt Count (130-400) K/uL MPV (9.4-12.4) fL Immature Gran % (Auto) % Neut % (Auto) % Lymph % (Auto) % [place]ac % (Auto) % Eos % (Auto) % Baso % (Auto) % Neut # (Auto) (1.4-6.5) K/uL Lymph # (Auto) (1.2-3.4) K/uL [place] # (Auto) (0.24-0.82) K/uL Eos # (Auto) (0-0.50) K/uL Baso # (Auto) (0-0.2) K/uL Immature Gran # (Auto) (0.00-0.02) K/uL Sodium (136-145) mmol/L Potassium (3.5-5.1) mmol/L Chloride (98-107) mmol/L Carbon Dioxide (21-32) mmol/L Anion Gap (3-11) BUN (6-23) mg/dl Creatinine (0.6-1.4) mg/dl Est Cr Clr Drug Dosing ml/min Est GFR ( Amer) ml/min Est GFR (Non-Af Amer) ml/min BUN/Creatinine Ratio (10-20) Glucose (70-99(Fasting)) mg/dl Calcium (8.5-10.1) mg/dl Total Bilirubin (0.2-1.0) mg/dl AST (13-39) U/L ALT (7-52) U/L Alkaline Phosphatase (34-104) U/L Troponin I High Sens (0-20) pg/ml Total Protein (6.0-8.3) gm/dl Albumin (3.4-5.0) gm/dl Globulin (2.5-4.0) gm/dl Albumin/Globulin Ratio (0.9-2) Urine Color Yellow Urine Appearance Clear (Clear) Urine pH 8.0 H (4.5-7.5) Ur Specific Taberg 1.012 (1.000-1.030) Urine Protein Negative (Negative) Urine Glucose (UA) Negative (Negative) Urine Ketones Negative (Negative) Urine Blood Trace H (Negative) Urine Nitrite Negative (Negative) Urine Bilirubin Negative (Negative) Urine Urobilinogen Negative (Negative) Ur Leukocyte Esterase Negative (Negative) Urine WBC (Auto) 1-5 (0-5) /hpf Urine RBC (Auto) 0-4 (0-4) /hpf U Hyaline Cast (Auto) 1-5 (0-5) /lpf U Epithel Cells (Auto) 5-10 H (0-5) /lpf Urine Bacteria (Auto) Negative (Negative) Ethyl Alcohol mg/dL (<10.0) mg/dl SARS-CoV-2, RNA, NAAT NEGATIVE (NEGATIVE) Administered Medications Discontinued Medications Lidocaine HCl (Xylocaine 1%/Sod Bicarb 20 Ml Vial) 20 ml INFIL NOW ONE Stop: 10/26/21 19:22 Last Admin: 10/26/21 19:51 Dose: 20 ml Documented By: [id number] Imaging Data Radiologist's Impression: Chest X-Ray 10/26/21 17:39 XR chest 1V portable CLINICAL HISTORY: fall TECHNIQUE: Single frontal radiograph of the chest was obtained. Comparison: Comparison is made to chest radiograph 08/02/2005 FINDINGS: No lines and tubes are seen. The cardiomediastinal silhouette is normal. The lungs are clear. No evidence of pleural effusion or pneumothorax. IMPRESSION: No acute chest disease. ACT 112: Negative or not required by law. Electronically signed by: Yunior Oscar M.D. 10/26/2021 6:[address] 10/26/21 17:40 CT cervical spine wo con CLINICAL HISTORY: Trauma TECHNIQUE: Multidetector row helical CT of the cervical spine was performed without administration of intravenous contrast. Coronal and sagittal reformations were obtained. Automated dose lowering techniques and/or adjustment according to patient size were utilized for this exam. Comparison: None available at the time of this dictation. FINDINGS: No acute fractures or subluxations are identified. Degenerative changes are seen in the visualized spine. The alignment is normal. Soft tissues are unremarkable. IMPRESSION: No evidence of acute bony injury. ACT 112: Negative or not required by law. Electronically signed by: Yunior Oscar M.D. 10/26/2021 6:[address] 10/26/21 17:40 CT facial bones wo con CLINICAL HISTORY: Trauma TECHNIQUE: Multidetector row helical CT of the maxillofacial bones was performed without administration of intravenous contrast, and processed with bone and soft tissue algorithms. Coronal and sagittal reformations were obtained. Automated dose lowering techniques and/or adjustment according to patient size were utilized for this exam. Comparison: None available at the time of this dictation. FINDINGS: Nasal bones are normal. The mandible is intact. The temporomandibular joints are anatomically aligned. Pterygoid plates are intact. Zygomatic arches are intact. The globes are normal and symmetric, without proptosis, obvious disruption or lens dislocation. The orbital huang are intact. Retrobulbar gas is noted on the right. A hematoma is noted in the medial aspect of the right orbit. This results in the displacement of the globe. Extraocular muscles are normal and symmetric. Optic nerve sheath complexes are normal in course and caliber. Prominent soft tissue swelling is seen in the right periorbital tissues. Minimal sinus thickening is noted at the ethmoid air cells anteriorly. IMPRESSION: No acute facial fracture. Extensive hematoma about the right orbit, most prominently medially. There is subcutaneous emphysema tracking into the retrobulbar space superiorly on the right, however no fracture of the orbital wall is seen. ACT 112: Negative or not required by law. Electronically signed by: Yunior Oscar M.D. 10/26/2021 6:[address] 10/26/21 17:40 CT head/brain wo con CLINICAL HISTORY: Trauma Technique: Contiguous axial CT images of the head were acquired from the base of the skull to the vertex without intravenous contrast administration. Images were viewed in brain, subdural and bone windows. Automated dose lowering techniques and/or adjustment according to patient size were utilized for this exam. Comparison: None available at the time of this dictation. Findings: Areas of decreased attenuation are present in the periventricular and subcortical white matter bilaterally consistent with small vessel ischemic disease. Generalized cerebral atrophy with commensurate enlargement of the ventricles, sulci, and cisterns is also present. There is no acute intracranial hemorrhage or evidence of acute territorial infarction. No shift of the midline structures, mass effect, or extra-axial abnormalities are shown. Atherosclerotic calcifications are present in the intracranial segments of the internal carotid arteries. Imaged portions of the paranasal sinuses and mastoid air cells are clear. The orbits appear normal. There are no acute fractures of the calvaria. Soft tissue swelling is seen in the right frontal scalp and periorbital tissues Impression: No acute intracranial hemorrhage or skull fractures. Scalp swelling is seen in the right periorbital soft tissues. ACT 112: Negative or not required by law. Electronically signed by: Yunior Oscar M.D. 10/26/2021 6:26 PM Hand X-Ray 10/26/21 17:48 XR wrist RT min 3V routine, XR hand RT min 3V routine CLINICAL HISTORY: r wrist pain TECHNIQUE: 4 views of the right wrist and 3 views of the right hand were obtained. Comparison: None available at the time of this dictation. FINDINGS: There is no evidence of an acute fracture. Joint spaces are well-preserved. Soft tissue swelling is seen about the wrist. IMPRESSION: Soft tissue swelling without evidence of acute fracture. ACT 112: Negative or not required by law. Electronically signed by: Yunior Oscar M.D. 10/26/2021 6:48 PM Wrist X-Ray 10/26/21 17:48 XR wrist RT min 3V routine, XR hand RT min 3V routine CLINICAL HISTORY: r wrist pain TECHNIQUE: 4 views of the right wrist and 3 views of the right hand were obtained. Comparison: None available at the time of this dictation. FINDINGS: There is no evidence of an acute fracture. Joint spaces are well-preserved. Soft tissue swelling is seen about the wrist. IMPRESSION: Soft tissue swelling without evidence of acute fracture. ACT 112: Negative or not required by law. Electronically signed by: Yunior Oscar M.D. 10/26/2021 6:48 PM Discharge Plan Visit Data Chief Complaint: Fall ED Provider: Jose Martini Discharge Problem: Fall, HTN (hypertension), Laceration, Acute confusion Forms Stand Alone Forms: [employer] Prescriptions Prescriptions: No Action methotrexate sodium 2.5 mg tablet 15 mg PO WE Label Comments: Wednesdays alendronate 70 mg tablet 70 mg PO GABRIEL folic acid 1 mg tablet 1 mg PO HS tamsulosin [Flomax] 0.4 mg capsule 0.4 mg PO HS atorvastatin 40 mg tablet 40 mg PO HS [id number]-WY-lycopen-lutein [Centrum Silver Men] 300-600-300 mcg tablet 1 tab PO HS aspirin [Adult Low Dose Aspirin] 81 mg tablet,delayed release (DR/EC) 81 mg PO .Q2D@HS cholecalciferol (vitamin D3) 1,000 unit capsule 1,000 units PO HS dutasteride 0.5 mg capsule 0.5 mg PO DAILY Qty: 90 3RF gabapentin [Neurontin] 100 mg capsule 100 mg PO .QHS Qty: 20 0RF Rx Instructions: at bedtime Referrals Referrals: Anthony Hooker MD [Primary Care Provider] -
[2021-10-26 18:05] LABS: Basophils # (auto) 0.02 K/uL (0-0.2); Basophils % (auto) 0.4 %; Eosinophils # (auto) 0.09 K/uL (0-0.50); Eosinophils % (auto) 1.9 %; Hematocrit (blood only) 40.3 % (40.1-51.0); Hemoglobin 13.5 g/dl (14.0-18.0); Immature Granulocytes # (auto) 0.02 K/uL (0.00-0.02); Immature Granulocytes % (auto) 0.4 %; Lymphocytes # (auto) 1.11 K/uL (1.2-3.4); Mean Corpuscular Hemoglobin 28.6 pg (25.0-34.0); Mean Corpuscular Hgb Conc 33.5 g/dL (32.0-36.0); Mean Corpuscular Volume 85.4 fL (80.0-100.0); Mean Platelet Volume 12.2 fL (9.4-12.4); Monocytes # (auto) 0.56 K/uL (0.24-0.82); Monocytes % (auto) 11.6 %; Neutrophils # (auto) 3.03 K/uL (1.4-6.5); Neutrophils % (auto) 62.7 %; Platelet Count 193 K/uL (130-400); RDW Coefficient of Variation 16.4 % (11.5-14.5); RDW Standard Deviation 50.5 fL (36.4-46.3); Red Blood Count 4.72 M/uL (4.63-6.08); White Blood Count 4.83 K/ul (4.8-10.8)
--- NOTE | 2021-10-26 18:27 | CT Scan Report ---
CT head/brain wo con CLINICAL HISTORY: Trauma Technique: Contiguous axial CT images of the head were acquired from the base of the skull to the kody lucy without intravenous contrast administration. Images were viewed in brain, subdural and bone [facility]. Automated dose lowering techniques and/or adjustment according to patient size were utilized for this exam. Comparison: None available at the time of this dictation. Findings: Areas of decreased attenuation are present in the periventricular and subcortical white matter bilate rally consistent with small vessel ischemic disease. Generalized cerebral atrophy with commensurate e nlargement of the ventricles, sulci, and cisterns is also present. There is no acute intracranial hem orrhage or evidence of acute territorial infarction. No shift of the midline structures, mass effect, or extra-axial abnormalities are shown. Atherosclerotic calcifications are present in the intracran ial segments of the internal carotid arteries. Imaged portions of the paranasal sinuses and mastoid air cells are clear. The orbits appear normal. There are no acute fractures of the calvaria. Soft tissue swelling is seen in the right frontal scal p and periorbital tissues Impression: No acute intracranial hemorrhage or skull fractures. Scalp swelling is seen in the right periorbital soft tissues. ACT 112: Negative or not required by law. Electronically signed by: Yunior Oscar M.D. 10/26/2021 6:26 PM
[2021-10-26 18:28] LABS: Appearance Urine Clear (Clear); Bacteria Urine Automated Negative (Negative); Bilirubin Urine Negative (Negative); Blood Urine Trace (Negative); Color Urine Yellow; Glucose Urine UA Negative (Negative); Ketones Urine Negative (Negative); Leukocyte Esterase Urine Negative (Negative); Nitrite Urine Negative (Negative); Protein Urine Negative (Negative); RBC Urine Automated 0-4 /hpf (0-4); Specific Gravity Urine 1.012 (1.000-1.030); Urobilinogen Urine Negative (Negative)
--- NOTE | 2021-10-26 18:34 | CT Scan Report ---
CT cervical spine wo con CLINICAL HISTORY: Trauma TECHNIQUE: Multidetector row helical CT of the cervical spine was performed without administration of intravenous contrast. Coronal and sagittal reformations were obtained. Automated dose lowering techn iques and/or adjustment according to patient size were utilized for this exam. Comparison: None available at the time of this dictation. FINDINGS: No acute fractures or subluxations are identified. Degenerative changes are seen in the visualized sp ine. The alignment is normal. Soft tissues are unremarkable. IMPRESSION: No evidence of acute bony injury. ACT 112: Negative or not required by law. Electronically signed by: Yunior Oscar M.D. 10/26/2021 6:32 PM
--- NOTE | 2021-10-26 18:48 | CT Scan Report ---
CT facial bones wo con CLINICAL HISTORY: Trauma TECHNIQUE: Multidetector row helical CT of the maxillofacial bones was performed without administrati on of intravenous contrast, and processed with bone and soft tissue algorithms. Coronal and sagittal reformations were obtained. Automated dose lowering techniques and/or adjustment according to patient size were utilized for this exam. Comparison: None available at the time of this dictation. FINDINGS: Nasal bones are normal. The mandible is intact. The temporomandibular joints are anatomically aligned . Pterygoid plates are intact. Zygomatic arches are intact. The globes are normal and symmetric, without proptosis, obvious disruption or lens dislocation. The orbital huang are intact. Retrobulbar gas is noted on the right. A hematoma is noted in the medial as pect of the right orbit. This results in the displacement of the globe. Extraocular muscles are carleen l and symmetric. Optic nerve sheath complexes are normal in course and caliber. Prominent soft tis gwen swelling is seen in the right periorbital tissues. Minimal sinus thickening is noted at the ethmoid air cells anteriorly. IMPRESSION: No acute facial fracture. Extensive hematoma about the right orbit, most prominently medially. There is subcutaneous emphysema tracking into the retrobulbar space superiorly on the right, however no fra cture of the orbital wall is seen. ACT 112: Negative or not required by law. Electronically signed by: Yunior Oscar M.D. 10/26/2021 6:45 PM
--- NOTE | 2021-10-26 18:49 | XRay Report ---
XR wrist RT min 3V routine, XR hand RT min 3V routine CLINICAL HISTORY: r wrist pain TECHNIQUE: 4 views of the right wrist and 3 views of the right hand were obtained. Comparison: None available at the time of this dictation. FINDINGS: There is no evidence of an acute fracture. Joint spaces are well-preserved. Soft tissue swelling is s een about the wrist. IMPRESSION: Soft tissue swelling without evidence of acute fracture. ACT 112: Negative or not required by law. Electronically signed by: Yunior Oscar M.D. 10/26/2021 6:48 PM
--- NOTE | 2021-10-26 18:55 | XRay Report ---
XR chest 1V portable CLINICAL HISTORY: fall TECHNIQUE: Single frontal radiograph of the chest was obtained. Comparison: Comparison is made to chest radiograph 08/02/2005 FINDINGS: No lines and tubes are seen. The cardiomediastinal silhouette is normal. The lungs are clear. No evid ence of pleural effusion or pneumothorax. IMPRESSION: No acute chest disease. ACT 112: Negative or not required by law. Electronically signed by: Yunior Oscar M.D. 10/26/2021 6:53 PM
[2021-10-26 19:02] LABS: Albumin Globulin Ratio 1.4 (0.9-2); Albumin Level 4.1 gm/dl (3.4-5.0); BUN Creatinine Ratio 19.5 (10-20); Bilirubin,Total 0.7 mg/dl (0.2-1.0); Creatinine Clr Calc Pharmacy 69.1 ml/min; Est GFR (African American) 96.6 ml/min; Est GFR (Non-African American) 83.3 ml/min; Potassium 3.5 mmol/L (3.5-5.1); Total Protein 7.1 gm/dl (6.0-8.3); Troponin I High Sensitivity 10.6 pg/ml (0-20)
--- NOTE | 2021-10-26 19:18 | Emergency Department Note ---
ED Visit Note The patient was evaluated in the Emergency Department by Dr. Martini after suffering a fall. Please see their dictation for full history of present illness and emergency department course. I was asked to assist with laceration repair. The patient agreed for laceration repair as follows: Laceration repair: Locations/size: Macerated laceration measuring a total of 5 cm to the right brow and 1 cm laceration to the bridge of the nose Complexity: Simple A total of 5 mL of 1% buffered lidocaine was dispersed throughout the wound edges to achieve anesthesia. The wounds were irrigated with saline. No foreign bodies appreciated. No involvement of the subcutaneous tissues. A total of 5 simple interrupted 5-0 nylon sutures were placed in the right eyebrow laceration and 1 simple interrupted 5-0 nylon suture was placed in the bridge of the nose. There were multiple surrounding superficial abrasions that did not require sutures for repair. After cleaning of the wounds, they were dressed with bacitracin and bandages. The brow laceration was additionally dressed with Telfa and a pressure dressing due to the significant surrounding edema and continued drainage from the surrounding superficial abrasions. The patient tolerated the procedure well without acute complications. Starting tomorrow, wounds may be cleansed gently with soap/water and dressed with bacitracin followed by non-adhesive dressings. Stitches should be removed within the next 5-7 days.
[2021-10-26] MEDS ORDERED: XYLOCAINE 1%/SOD BICARB 20 ML VIAL INFIL ONE (19:21)
--- NOTE | 2021-10-26 21:19 | History & Physical Report ---
Date of Service October 26, 2021 Assessment & Plan (1) Fall: Plan: 86yo male presents after ground level fall, struck head on pavement. Patient with some mild confusion - repeating himself, most likely mild concussion following trauma. No neurological deficits. No LOC. Imaging reveals large right orbital ecchymosis, otherwise unremarkable. No involvement of the globe. No orbital fracture. No entrapment, EOMI. Vision is intact. -Fall precautions -PT/OT evaluation appreciated -Neuro checks with GCS q 4 hours -Ice to face, wrist and shoulder for comfort -Dressing changes as needed -Pain control with Tylenol, Oxycodone PRN (2) Laceration: Plan: s/p repair in ER -Dressing changes -Ice for comfort -Tylenol, Oxycodone (3) Acute confusion: Plan: Most likely secondary to mild concussion following fall with head trauma. No focal deficits. -GCS -Frequent orientation as needed (4) ASCVD (arteriosclerotic cardiovascular disease): Plan: Chronic. Stable. No chest pain -Hold ASA given recent trauma -Continue Atorvastatin (5) HTN (hypertension): Plan: Blood pressure elevated at present 167/83. Patient not on any home medications -Continue to monitor -Pain control as above (6) Rheumatoid arthritis of upper arm: Plan: Chronic. -Continue Methotrexate at home dose -Continue Folilc acid (7) Benign prostatic hyperplasia: Plan: Chronic. Stable. Patient follows with Urology. -Monitor UOP -Continue Tamsulosin, Dutasteride and Myrbetriq Plan F/E/N - Heplock. Electrolytes WNL. AHA diet as tolerated Ppx - Low risk for DVT, avoid chemoppx in recent head trauma Code - Full Dispo - Observation to medical, neuro checks, PT/OT evaluation History of Present Illness Chief Complaint: Fall Primary Care Provider: Anthony Hooker MD 86yo male with history of HTN, CAD, BPH, RA on MTX presenting after a fall. Patient is active and independent. He lives at home alone without difficulty. He left his apartment this afternoon and was walking to [employer]. He decided to take a different route than he's used to. He was walking down a steep hill and was unable to stop and he fell and struck his right face, shoulder hand and wrist on the ground. He did not lose consciousness. He denies chest pain, palpitations, dizziness or syncope preceding or following the event. In the ER he was noted to be mildly confused. He has been repeating himself. He denies headache, neck pain, double vision. No additional complaints at this time. ER Course: Laceration repair Allergies Allergy/AdvReac Type Severity Reaction Status Date / Time No Known Drug Allergies Allergy nkda Verified 10/26/21 22:22 Home Medications Medication Instructions Recorded Confirmed Type alendronate 70 mg tablet 70 mg PO GABRIEL 04/01/18 10/26/21 History aspirin 81 mg tablet,delayed 81 mg PO DAILY 04/01/18 10/26/21 History release (Adult Low Dose Aspirin) atorvastatin 40 mg tablet 40 mg PO HS 04/01/18 10/26/21 History folic acid 1 mg tablet 1 mg PO HS 04/01/18 10/26/21 History methotrexate sodium 2.5 mg tablet 15 mg PO WE 04/01/18 10/26/21 History hjltsves-iyc-pasbn acid 300 1 tab PO HS 04/01/18 10/26/21 History mcg-lycopene 600 mcg-lutein 300 mcg tablet (Centrum Silver Men) tamsulosin 0.4 mg capsule (Flomax) 0.4 mg PO QAM 04/01/18 10/26/21 History dutasteride 0.5 mg capsule 0.5 mg PO DAILY #90 caps 07/03/21 10/26/21 Rx cholecalciferol (vitamin D3) 50 50 mcg PO DAILY 10/26/21 10/26/21 History mcg (2,000 unit) tablet (Vitamin D3) mirabegron 50 mg tablet,extended 50 mg PO DAILY 10/26/21 10/26/21 History release 24 hr (Myrbetriq) Past Med/Surg History Medical History ASCVD (arteriosclerotic cardiovascular disease) Benign prostatic hyperplasia Bleeding disorder Per new pt paperwork marked "long ago" Coronary artery calcification History of rib fracture 7-8 year ago, repaired surgically Hypertension 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 Rheumatoid arthritis of upper arm Rib fractures Tinnitus Surgical History H/O hernia repair History of tonsillectomy Family History Mother Cancer Other No family history of adverse response to anesthesia No family history of bleeding disorder Social History Smoking Status: Former smoker Hx Alcohol Use: No Hx Substance Use: No Preferred Language: Afghan Communication Ability: Effective Print Line Feeder Required: No Beliefs That Will Affect Care: None Current Living Situation: Alone Current Living Situation Comment: condo current occupational status: retired Other Information That Helps Us Care for You: No Feels Safe at Home: Yes Safety Concerns: Feels Safe At This Time Assistive Devices: Glasses Review of Systems Review of Systems: All systems reviewed & are unremarkable except as noted in HPI & below Physical Exam Physical Exam: General: patient resting comfortably, AA&O x 4 Skin: significant periorbital ecchymosis on right upper and lower eyelids, lacerations present over bridge of nose and right eyebrow, bruising to right hand, wrist, abrasion on right shoulder, HEENT: Right eye swollen shut, PERRL, EOMI, anicteric sclera, conjunctiva without injection, external ear normal to inspection and nontender, nares patent, moist mucus membranes, dentition intact, no oropharyngeal lesions, neck supple, trachea midline, no LAD, no thyromegaly, no JVD Heart: +S1/S2, regular, no m/r/g Lungs: equal air entry bilaterally, no rales/rhonchi/wheezes Abd: +BS, soft, NT/ND, no masses/organomegaly/ascites Ext: warm, 2+ pulses in UE/LE bilaterally, no clubbing/cyanosis or edema Neuro: nonfocal, patient AA&O x 4, speech intact, no facial droop, moving all extremities on command with equal strength 5/5 Results & Data Results & Data ([facility]) Vital Signs (Past 12 Hours) Vital Signs Pulse Pulse Resp BP BP Pulse Ox O2 Del Method 10/26/21 20:00 99 H 16 188/103 H 97 10/26/21 19:30 107 H 14 179/113 H 95 10/26/21 19:21 100 H 16 171/123 H 98 Room Air 10/26/21 17:45 98 Room Air 10/26/21 17:37 119 H 20 168/110 H 95 Room Air 10/26/21 17:33 106 H 20 168/110 H 98 Room Air Laboratory Results Laboratory Results WBC 4.83 K/ul (4.8-10.8) 10/26/21 17:35 RBC 4.72 M/uL (4.63-6.08) 10/26/21 17:35 Hgb 13.5 g/dl (14.0-18.0) L 10/26/21 17:35 Hct 40.3 % (40.1-51.0) 10/26/21 17:35 MCV 85.4 fL (80.0-100.0) 10/26/21 17:35 MCH 28.6 pg (25.0-34.0) 10/26/21 17:35 MCHC 33.5 g/dL (32.0-36.0) 10/26/21 17:35 RDW Std Deviation 50.5 fL (36.4-46.3) H 10/26/21 17:35 RDW Coeff of Daryl 16.4 % (11.5-14.5) H 10/26/21 17:35 Plt Count 193 K/uL (130-400) 10/26/21 17:35 MPV 12.2 fL (9.4-12.4) 10/26/21 17:35 Immature Gran % (Auto) 0.4 % 10/26/21 17:35 Neut % (Auto) 62.7 % 10/26/21 17:35 Lymph % (Auto) 23.0 % 10/26/21 17:35 Crowley % (Auto) 11.6 % 10/26/21 17:35 Eos % (Auto) 1.9 % 10/26/21 17:35 Baso % (Auto) 0.4 % 10/26/21 17:35 Neut # (Auto) 3.03 K/uL (1.4-6.5) 10/26/21 17:35 Lymph # (Auto) 1.11 K/uL (1.2-3.4) L 10/26/21 17:35 Crowley # (Auto) 0.56 K/uL (0.24-0.82) 10/26/21 17:35 Eos # (Auto) 0.09 K/uL (0-0.50) 10/26/21 17:35 Baso # (Auto) 0.02 K/uL (0-0.2) 10/26/21 17:35 Immature Gran # (Auto) 0.02 K/uL (0.00-0.02) 10/26/21 17:35 Sodium 141 mmol/L (136-145) 10/26/21 17:35 Potassium 3.5 mmol/L (3.5-5.1) 10/26/21 17:35 Chloride 104 mmol/L (98-107) 10/26/21 17:35 Carbon Dioxide 28 mmol/L (21-32) 10/26/21 17:35 Anion Gap 9 (3-11) 10/26/21 17:35 BUN 15 mg/dl (6-23) 10/26/21 17:35 Creatinine 0.77 mg/dl (0.6-1.4) 10/26/21 17:35 Est Cr Clr Drug Dosing 69.1 ml/min 10/26/21 17:35 Est GFR ( Amer) 96.6 ml/min 10/26/21 17:35 Est GFR (Non-Af Amer) 83.3 ml/min 10/26/21 17:35 BUN/Creatinine Ratio 19.5 (10-20) 10/26/21 17:35 Glucose 87 mg/dl (70-99(Fasting)) 10/26/21 17:35 Calcium 9.0 mg/dl (8.5-10.1) 10/26/21 17:35 Total Bilirubin 0.7 mg/dl (0.2-1.0) 10/26/21 17:35 AST 34 U/L (13-39) 10/26/21 17:35 ALT 29 U/L (7-52) 10/26/21 17:35 Alkaline Phosphatase 77 U/L (34-104) 10/26/21 17:35 Troponin I High Sens 10.6 pg/ml (0-20) 10/26/21 17:35 Total Protein 7.1 gm/dl (6.0-8.3) 10/26/21 17:35 Albumin 4.1 gm/dl (3.4-5.0) 10/26/21 17:35 Globulin 3.0 gm/dl (2.5-4.0) 10/26/21 17:35 Albumin/Globulin Ratio 1.4 (0.9-2) 10/26/21 17:35 Urine Color Yellow 10/26/21 18:02 Urine Appearance Clear (Clear) 10/26/21 18:02 Urine pH 8.0 (4.5-7.5) H 10/26/21 18:02 Ur Specific [place] 1.012 (1.000-1.030) 10/26/21 18:02 Urine Protein Negative (Negative) 10/26/21 18:02 Urine Glucose (UA) Negative (Negative) 10/26/21 18:02 Urine Ketones Negative (Negative) 10/26/21 18:02 Urine Blood Trace (Negative) H 10/26/21 18:02 Urine Nitrite Negative (Negative) 10/26/21 18:02 Urine Bilirubin Negative (Negative) 10/26/21 18:02 Urine Urobilinogen Negative (Negative) 10/26/21 18:02 Ur Leukocyte Esterase Negative (Negative) 10/26/21 18:02 Urine WBC (Auto) 1-5 /hpf (0-5) 10/26/21 18:02 Urine RBC (Auto) 0-4 /hpf (0-4) 10/26/21 18:02 U Hyaline Cast (Auto) 1-5 /lpf (0-5) 10/26/21 18:02 U Epithel Cells (Auto) 5-10 /lpf (0-5) H 10/26/21 18:02 Urine Bacteria (Auto) Negative (Negative) 10/26/21 18:02 Ethyl Alcohol mg/dL < 10.0 mg/dl (<10.0) 10/26/21 17:35 SARS-CoV-2, RNA, NAAT NEGATIVE (NEGATIVE) 10/26/21 Unknown Impressions Chest X-Ray 10/26/21 17:39 XR chest 1V portable CLINICAL HISTORY: fall TECHNIQUE: Single frontal radiograph of the chest was obtained. Comparison: Comparison is made to chest radiograph 08/02/2005 FINDINGS: No lines and tubes are seen. The cardiomediastinal silhouette is normal. The lungs are clear. No evidence of pleural effusion or pneumothorax. IMPRESSION: No acute chest disease. ACT 112: Negative or not required by law. Electronically signed by: Yunior Oscar M.D. 10/26/2021 6:[address] 10/26/21 17:40 CT cervical spine wo con CLINICAL HISTORY: Trauma TECHNIQUE: Multidetector row helical CT of the cervical spine was performed without administration of intravenous contrast. Coronal and sagittal reformations were obtained. Automated dose lowering techniques and/or adjustment according to patient size were utilized for this exam. Comparison: None available at the time of this dictation. FINDINGS: No acute fractures or subluxations are identified. Degenerative changes are seen in the visualized spine. The alignment is normal. Soft tissues are unremarkable. IMPRESSION: No evidence of acute bony injury. ACT 112: Negative or not required by law. Electronically signed by: Yunior Oscar M.D. 10/26/2021 6:[address] 10/26/21 17:40 CT facial bones wo con CLINICAL HISTORY: Trauma TECHNIQUE: Multidetector row helical CT of the maxillofacial bones was performed without administration of intravenous contrast, and processed with bone and soft tissue algorithms. Coronal and sagittal reformations were obtained. Automated dose lowering techniques and/or adjustment according to patient size were utilized for this exam. Comparison: None available at the time of this dictation. FINDINGS: Nasal bones are normal. The mandible is intact. The temporomandibular joints are anatomically aligned. Pterygoid plates are intact. Zygomatic arches are intact. The globes are normal and symmetric, without proptosis, obvious disruption or lens dislocation. The orbital huang are intact. Retrobulbar gas is noted on the right. A hematoma is noted in the medial aspect of the right orbit. This results in the displacement of the globe. Extraocular muscles are normal and symmetric. Optic nerve sheath complexes are normal in course and caliber. Prominent soft tissue swelling is seen in the right periorbital tissues. Minimal sinus thickening is noted at the ethmoid air cells anteriorly. IMPRESSION: No acute facial fracture. Extensive hematoma about the right orbit, most prominently medially. There is subcutaneous emphysema tracking into the retrobulbar space superiorly on the right, however no fracture of the orbital wall is seen. ACT 112: Negative or not required by law. Electronically signed by: Yunior Oscar M.D. 10/26/2021 6:[address] 10/26/21 17:40 CT head/brain wo con CLINICAL HISTORY: Trauma Technique: Contiguous axial CT images of the head were acquired from the base of the skull to the vertex without intravenous contrast administration. Images were viewed in brain, subdural and bone windows. Automated dose lowering techniques and/or adjustment according to patient size were utilized for this exam. Comparison: None available at the time of this dictation. Findings: Areas of decreased attenuation are present in the periventricular and subcortical white matter bilaterally consistent with small vessel ischemic disease. Generalized cerebral atrophy with commensurate enlargement of the ventricles, sulci, and cisterns is also present. There is no acute intracranial hemorrhage or evidence of acute territorial infarction. No shift of the midline structures, mass effect, or extra-axial abnormalities are shown. Atherosclerotic calcifications are present in the intracranial segments of the i nternal carotid arteries. Imaged portions of the paranasal sinuses and mastoid air cells are clear. The orbits appear normal. There are no acute fractures of the calvaria. Soft tissue swelling is seen in the right frontal scalp and periorbital tissues Impression: No acute intracranial hemorrhage or skull fractures. Scalp swelling is seen in the right periorbital soft tissues. ACT 112: Negative or not required by law. Electronically signed by: Yunior Oscar M.D. 10/26/2021 6:26 PM Hand X-Ray 10/26/21 17:48 XR wrist RT min 3V routine, XR hand RT min 3V routine CLINICAL HISTORY: r wrist pain TECHNIQUE: 4 views of the right wrist and 3 views of the right hand were obtained. Comparison: None available at the time of this dictation. FINDINGS: There is no evidence of an acute fracture. Joint spaces are well-preserved. Soft tissue swelling is seen about the wrist. IMPRESSION: Soft tissue swelling without evidence of acute fracture. ACT 112: Negative or not required by law. Electronically signed by: Yunior Oscar M.D. 10/26/2021 6:48 PM Wrist X-Ray 10/26/21 17:48 XR wrist RT min 3V routine, XR hand RT min 3V routine CLINICAL HISTORY: r wrist pain TECHNIQUE: 4 views of the right wrist and 3 views of the right hand were obtained. Comparison: None available at the time of this dictation. FINDINGS: There is no evidence of an acute fracture. Joint spaces are well-preserved. Soft tissue swelling is seen about the wrist. IMPRESSION: Soft tissue swelling without evidence of acute fracture. ACT 112: Negative or not required by law. Electronically signed by: Yunior Oscar M.D. 10/26/2021 6:48 PM ECG Additional Comments: EKG with SR at 96, 1st degree AV block with JN=045, QRS=86, GGo=381, no acute ischemic changes Code Status & VTE Plan VTE Prophylaxis Plan VTE Prophylaxis will be ordered: Yes PG Care Time/CCT Total # of Minutes Spent Total Time Spent with Patient: Total time spent is greater than 50% in coordination of care (as documented) at patient's floor/unit and/or counseling patient: Coding Level of Care Code INT OBSERVATION CARE 70M LVL 3 Diagnoses Fall W19.XXXA Laceration Acute confusion R41.0 ASCVD (arteriosclerotic cardiovascular disease) I25.10 HTN (hypertension) I10 Rheumatoid arthritis of upper arm M06.9 Benign prostatic hyperplasia N40.0
[2021-10-27] MEDS ORDERED: ACETAMINOPHEN 325 MG TAB PO PRN (00:24)
[2021-10-27] MEDS ORDERED: oxyCODONE HCL IR 5 MG TAB (IMMEDIATE RELEASE) PO PRN (00:24)
[2021-10-27] MEDS ORDERED: ONDANSETRON INJ 2 MG/ML 2 ML VIAL IV PRN (00:24)
[2021-10-27] MEDS ORDERED: DOCUSATE SODIUM 100 MG CAP PO PRN (00:24)
[2021-10-27 07:44] LABS: Hematocrit (blood only) 34.1 % (40.1-51.0); Hemoglobin 11.6 g/dl (14.0-18.0); Immature Granulocytes # (auto) 0.02 K/uL (0.00-0.02); Immature Granulocytes % (auto) 0.3 %; Lymphocytes # (auto) 0.78 K/uL (1.2-3.4); Lymphocytes % (auto) 11.3 %; Mean Corpuscular Hemoglobin 28.6 pg (25.0-34.0); Mean Corpuscular Volume 84.2 fL (80.0-100.0); Mean Platelet Volume 11.2 fL (9.4-12.4); Monocytes % (auto) 10.1 %; Neutrophils # (auto) 5.41 K/uL (1.4-6.5); Neutrophils % (auto) 78.3 %; Platelet Count 173 K/uL (130-400); RDW Coefficient of Variation 15.9 % (11.5-14.5); Red Blood Count 4.05 M/uL (4.63-6.08); White Blood Count 6.91 K/ul (4.8-10.8)
--- NOTE | 2021-10-27 07:44 | Hospitalist Progress Note ---
Date of Service October 27, 2021 Assessment & Plan (1) Fall: Plan: 86yo male presents after ground level fall, struck head on pavement. Patient with some mild confusion - repeating himself, most likely mild concussion following trauma. No neurological deficits. No LOC. Imaging reveals large right orbital ecchymosis, otherwise unremarkable. No involvement of the globe. No orbital fracture. No entrapment, EOMI. Vision is intact. -Fall precautions -PT/OT evaluation appreciated -Neuro checks with GCS q 4 hours -Ice to face, wrist and shoulder for comfort -Dressing changes as needed -Pain control with Tylenol, Oxycodone PRN (2) Laceration: Plan: s/p repair in ER -Dressing changes -Ice for comfort -Tylenol, Oxycodone (3) Acute confusion: Plan: Most likely secondary to mild concussion following fall with head trauma. No focal deficits. -GCS -Frequent orientation as needed (4) ASCVD (arteriosclerotic cardiovascular disease): Plan: Chronic. Stable. No chest pain -Hold ASA given recent trauma -Continue Atorvastatin (5) HTN (hypertension): Plan: Blood pressure elevated at present 167/83. Patient not on any home medications -Continue to monitor -Pain control as above (6) Rheumatoid arthritis of upper arm: Plan: Chronic. -Continue Methotrexate at home dose -Continue Folilc acid (7) Benign prostatic hyperplasia: Plan: Chronic. Stable. Patient follows with Urology. -Monitor UOP -Continue Tamsulosin, Dutasteride and Myrbetriq Plan F/E/N - Heplock. Electrolytes WNL. AHA diet as tolerated Ppx - Low risk for DVT, avoid chemoppx in recent head trauma Code - Full Dispo - Observation to medical, neuro checks, PT/OT evaluation Admission and Anticipated Discharge Date Admission Date: October 26, 2021 Results & Data Results & Data ([facility]) Vital Signs (Past 12 Hours) Vital Signs Temp Pulse Pulse Resp BP BP BP 10/27/21 00:13 97.7 F 81 18 167/83 H 10/27/21 00:30 97.7 F 81 16 167/83 H 10/26/21 23:40 74 20 164/67 H 10/26/21 22:00 73 17 165/97 H 10/26/21 21:30 75 16 159/100 H 10/26/21 21:00 78 14 156/94 H 10/26/21 20:30 105 H 15 207/120 H 10/26/21 20:00 99 H 16 188/103 H Pulse Ox O2 Del Method 10/27/21 00:13 98 Room Air 10/27/21 00:30 98 Room Air 10/26/21 23:40 96 Room Air 10/26/21 22:00 10/26/21 21:30 10/26/21 21:00 10/26/21 20:30 97 10/26/21 20:00 97 PG Care Time/CCT Total # of Minutes Spent Total Time Spent with Patient: Total time spent is greater than 50% in coordination of care (as documented) at patient's floor/unit and/or counseling patient: Coding Diagnoses Fall W19.XXXA Laceration Acute confusion R41.0 ASCVD (arteriosclerotic cardiovascular disease) I25.10 HTN (hypertension) I10 Rheumatoid arthritis of upper arm M06.9 Benign prostatic hyperplasia N40.0
[2021-10-27 08:09] LABS: BUN Creatinine Ratio 18.8 (10-20); Creatinine Clr Calc Pharmacy 77.1 ml/min; Est GFR (Non-African American) 87.2 ml/min; Potassium 3.6 mmol/L (3.5-5.1)
[2021-10-27] MEDS ORDERED: TAMSULOSIN HCL 0.4 MG CAP PO SCH (09:00)
[2021-10-27] MEDS ORDERED: MIRABEGRON ER 25 MG TAB PO SCH (09:00)
--- NOTE | 2021-10-27 17:58 | Electrocardiogram Report ---
Test Reason : Blood Pressure : / mmHG Vent. Rate : 096 BPM Atrial Rate : 096 BPM P-R Int : 244 ms QRS Dur : 086 ms QT Int : 338 ms P-R-T Axes : 034 -63 029 degrees QTc Int : 427 ms Poor data quality, interpretation may be adversely affected Sinus rhythm with 1st degree A-V block Left axis deviation possible Inferior infarct , age undetermined Abnormal ECG When compared with ECG of 09-JUL-2017 14:16, Vent. rate has increased BY 34 BPM Inferior infarct is now Present Confirmed by Jonathan Alvarenga ([id number]) on 10/27/2021 5:57:23 PM Referred By: REFERRED SELF Confirmed By:Armando Alvarenga
--- NOTE | 2021-10-27 18:02 | Discharge Summary ---
Date of Service October 27, 2021 Admission HPI Per Admitting Provider 86yo male with history of HTN, CAD, BPH, RA on MTX presenting after a fall. Patient is active and independent. He lives at home alone without difficulty. He left his apartment this afternoon and was walking to [employer]. He decided to take a different route than he's used to. He was walking down a steep hill and was unable to stop and he fell and struck his right face, shoulder hand and wrist on the ground. He did not lose consciousness. He denies chest pain, palpitations, dizziness or syncope preceding or following the event. In the ER he was noted to be mildly confused. He has been repeating himself. He denies headache, neck pain, double vision. No additional complaints at this time. ER Course: Laceration repair Principal Diagnosis mechanical fall facial contusion with laceration and repair right wrist contusion concussion resolved Discharge Exam The patient appeared stable Vital signs as documented. has contusions to right eyebrow area and right upper lip Neurologic exam is alert and oriented, no focal loss of strength or sensation does require walker for ambulation, and family will support at home Psychologically is without concerns for anxiety or depression. Discharge Data Allergies Allergy/AdvReac Type Severity Reaction Status Date / Time No Known Drug Allergies Allergy nkda Verified 10/26/21 22:22 Consultations 10/26/21 20:32 ED Decision to Admit Stat Ordered Studies 10/26/21 17:40 CT cervical spine wo con Stat CT facial bones wo con Stat CT head/brain wo con Stat Hospital Course (1) Fall: 86yo male presents after ground level fall, struck head on pavement. Patient with some mild confusion - repeating himself, most likely mild concussion following trauma. No neurological deficits. No LOC. Imaging reveals large right orbital ecchymosis, otherwise unremarkable. No involvement of the globe. No orbital fracture. No entrapment, EOMI. Vision is intact. -Ice to face, wrist and shoulder for comfort -Dressing changes as needed -Pain control with Tylenol, (2) Laceration: s/p repair in ER -Dressing changes -Ice for comfort -Tylenol, Oxycodone (3) Acute confusion: resolved (4) ASCVD (arteriosclerotic cardiovascular disease): Chronic. Stable. No chest pain - ASA -Continue Atorvastatin (5) HTN (hypertension): Blood pressure elevated at present 167/83. Patient not on any home medications (6) Rheumatoid arthritis of upper arm: Chronic. -Continue Methotrexate at home dose -Continue Folilc acid (7) Benign prostatic hyperplasia: Chronic. Stable. Patient follows with Urology. -Monitor UOP -Continue Tamsulosin, Dutasteride and Myrbetriq Total Time Total Time Spent Total Time Spent (In Minutes): It required greater than 30 minutes to prepare this patient for discharge Discharge Plan Discharge Items Patient Disposition: Home - Self-Care Reason For Visit: FALL Discharge Diagnosis: fall with facial laceration and repair concussion right hand contusion Activity: Per Instructions section Activity Comment: strongly consider Physical therapy Non-emergency contact: Primary Care Provider Call non-emergency contact if: your symptoms worsen and your pain is not controlled Follow-up/Referrals: Mauro Crane MD [Primary Care Provider] - Diet: Regular Addtl Attending Provider Instructions: Clean area once daily with soap and water, and apply a new bandage and ointment after cleaning. There is no need to use hydrogen peroxide or alcohol for cleaning. Continue this care until wound is fully healed. Have your primary care doctor check when your stitches may need removed. If you have fever, swelling or purulent discharge please seek medical attention Strongly consider participating in physical therapy consider in home care services [facility] to help provide additional in home health. Pending Studies at Discharge: No Stand-Alone Forms: My [facility] [employer], Smoking Cessation Medications and DC Order Prescriptions: New (DME) Wheeled Walker Misc See Rx Instructions .Route Qty: 1 0RF Rx Instructions: As directed Continued methotrexate sodium 2.5 mg tablet 15 mg PO WE Label Comments: Wednesdays alendronate 70 mg tablet 70 mg PO GABRIEL folic acid 1 mg tablet 1 mg PO HS tamsulosin [Flomax] 0.4 mg capsule 0.4 mg PO QAM atorvastatin 40 mg tablet 40 mg PO HS [id number]-GQ-lycopen-lutein [Centrum Silver Men] 300-600-300 mcg tablet 1 tab PO HS aspirin [Adult Low Dose Aspirin] 81 mg tablet,delayed release (DR/EC) 81 mg PO DAILY dutasteride 0.5 mg capsule 0.5 mg PO DAILY Qty: 90 3RF cholecalciferol (vitamin D3) [Vitamin D3] 50 mcg (2,000 unit) Tablet 50 mcg PO DAILY Myrbetriq 50 mg Tablet Extended Release 24 Hr 50 mg PO DAILY Discharge Orders: Discharge Order (Routine); Ordered 10/27/21 Ordered By: Asa Babin Admission Data Admit Date/Time: 10/26/21 21:18 Attending Provider: Asa Babin Admit Provider: Kimi Willis Primary Care Provider: Mauro Crane Other Providers: Kimi Willis Other Interventions: Discharge Summary Assessment (RN) Last Done: 10/27/21 14:51 Coding Level of Care Code D/C DAY MANAGEMENT >30 MINS Diagnoses Fall W19.XXXA Laceration Acute confusion R41.0 ASCVD (arteriosclerotic cardiovascular disease) I25.10 HTN (hypertension) I10 Rheumatoid arthritis of upper arm M06.9 Benign prostatic hyperplasia N40.0
[2021-10-27] MEDS ORDERED: FOLIC ACID 1 MG TAB PO SCH (21:00)
[2021-10-27] MEDS ORDERED: ATORVASTATIN 40 MG TAB PO SCH (21:00)
[2021-10-29] MEDS ORDERED: ALENDRONATE SODIUM 70 MG TAB PO SCH (06:30)
[2021-11-01] MEDS ORDERED: metHOTREXate sodium 2.5 MG TAB PO SCH (09:00)
== END 2021-10-27 15:23 | disposition home or self-care (01) ==
LOC: ED 17:28 → 2N 17:28 → SUATTDRO 21:18 → 2N 10-27

== ENCOUNTER 2022-01-30 15:18 | Inpatient (IN) ==
--- NOTE | 2022-01-30 15:27 | ED Triage Note ---
Date of Service January 30, 2022 History of Present Illness This patient was briefly evaluated while in triage. An abbreviated physical exam was performed. This patient is a 86-year-old Male that presents to the ED today for ongoing. He is referred today for ongoing loss of energy, decreased energy and frequent falls. He is accompanied today by family member. Incontinent of urine. Pt. lives at home alone. Physical Exam GENERAL: 86 year old male. In no acute distress. SKIN: No lesions or rashes. HEART: Regular rate and rhythm. LUNGS: Clear to auscultation. ABDOMEN: Bowel sounds normoactive. No guarding or rigidity. NEURO: Alert and oriented. No deficits. MUSCULOSKELETAL: No deformities to inspection of the extremities. PSYCH: Patient is pleasant and answers all questions appropriately. He is slow to respond to questions and is soft spoken when asked questions. Initial orders for labs and / or imaging were placed and patient was placed in the waiting area until a bed is available. Please see further documentation for the full ED course.
[2022-01-30 17:04] LABS: Basophils # (auto) 0.03 K/uL (0-0.2); Basophils % (auto) 0.4 %; Eosinophils # (auto) 0.18 K/uL (0-0.50); Eosinophils % (auto) 2.7 %; Hematocrit (blood only) 37.7 % (40.1-51.0); Immature Granulocytes # (auto) 0.02 K/uL (0.00-0.02); Immature Granulocytes % (auto) 0.3 %; Lymphocytes # (auto) 1.03 K/uL (1.2-3.4); Lymphocytes % (auto) 15.4 %; Mean Corpuscular Hgb Conc 34.5 g/dL (32.0-36.0); Mean Corpuscular Volume 81.3 fL (80.0-100.0); Mean Platelet Volume 11.4 fL (9.4-12.4); Monocytes # (auto) 0.59 K/uL (0.24-0.82); Monocytes % (auto) 8.8 %; Neutrophils # (auto) 4.85 K/uL (1.4-6.5); Neutrophils % (auto) 72.4 %; Platelet Count 267 K/uL (130-400); RDW Coefficient of Variation 13.5 % (11.5-14.5); RDW Standard Deviation 39.6 fL (36.4-46.3); Red Blood Count 4.64 M/uL (4.63-6.08)
[2022-01-30 17:38] LABS: Alanine Aminotransferase 17 U/L (7-52); Albumin Globulin Ratio 1.1 (0.9-2); Albumin Level 3.9 gm/dl (3.4-5.0); Alkaline Phosphatase 63 U/L (34-104); Anion Gap 11 (3-11); Aspartate Aminotransferase 13 U/L (13-39); BUN Creatinine Ratio 12.5 (10-20); Bilirubin,Total 0.6 mg/dl (0.2-1.0); Blood Urea Nitrogen 103 mg/dl (6-23); Calcium 9.4 mg/dl (8.5-10.1); Carbon Dioxide 25 mmol/L (21-32); Chloride 105 mmol/L (98-107); Est GFR (African American) 6.2 ml/min; Est GFR (Non-African American) 5.4 ml/min; Globulin 3.4 gm/dl (2.5-4.0); Glucose 120 mg/dl (70-99(Fasting)); Magnesium 2.9 mg/dl (1.7-2.4); Potassium 3.9 mmol/L (3.5-5.1); Sodium 141 mmol/L (136-145); Total Protein 7.3 gm/dl (6.0-8.3); Troponin I High Sensitivity 11.8 pg/ml (0-20)
[2022-01-30] MEDS ORDERED: SODIUM CHLORIDE 0.9% 1000ML 1,000 ML IV ONE ×2 (17:54→19:31)
--- NOTE | 2022-01-30 18:09 | Emergency Department Note ---
Impression & Plan Obstructive uropathy, Acute renal failure, Weakness, Falls frequently ED Provider Note NAME: MICHELLE CARDENAS AGE: 86 SEX: M : 1935 ARRIVES VIA: Walk-In INFORMANT: Patient, The patient's family members ED PROVIDER(S): Roger Madrid DO CHIEF COMPLAINT: Weakness HPI: The patient is an 86-year-old male who presented to the emergency department for an evaluation of generalized weakness. The patient has been having problems with falling recently. According to his family member he has been having trouble with generalized weakness and falls. He is not been eating or drinking. He states that he has had at least 10 falls that he was seen in our facility for previously. He was not found have any traumatic injury and was able to discharged home. His family members called primary care physician today and when they heard about his frequent falls weakness as well as his urinary incontinence he was referred to the emergency department. The patient himself denies having any hematemesis. He denies having any black or bloody bowel moods. He denies having any specific abdominal discomfort. He has had no back pain. He states has been compliant with his outpatient medications. ROS: See above HPI for pertinent positives & negatives. A total of 10 systems reviewed and were otherwise negative. PAST MEDICAL HISTORY: See Below PAST SURGICAL HISTORY: See Below FAMILY HISTORY: See Below SOCIAL HISTORY: See Below HOME MEDICATIONS: See Below ALLERGIES: See Below VITALS: See Below PHYSICAL EXAMINATION: GENERAL: The patient is awake to verbal commands. He is somewhat listless. He does not appear to be uncomfortable. EYES: The conjunctivae are clear. The pupils are round and reactive. EARS, NOSE, MOUTH AND THROAT: The nose is without any evidence of any deformity. Mucous membranes are dry. NECK: The neck is nontender and supple. RESPIRATORY: Shallow respirations were noted. Diminished breath sounds are noted at both bases. CARDIOVASCULAR: Irregular heart sounds were noted auscultation. There is no definite murmur. GASTROINTESTINAL: The abdomen was soft. There is suprapubic distention to palpation. There is no guarding rigidity. BACK: Kyphoscoliosis was noted. There is no step-off or midline tenderness. MUSCULOSKELETAL/EXTREMITIES: There is no evidence of gross deformity full range of motion is noted in the hips and shoulders. SKIN: Skin was warm and dry. Pedal edema was noted bilaterally. NEUROLOGIC: Patient is awake to verbal commands. The patient was oriented to person and place. He recognizes family members. Strength was symmetric but diminished. MEDICAL DECISION MAKING: The patient is an 86-year-old male who presented to the emergency department for an evaluation of frequent falls. The patient has become very weak and his family members noted he was having difficulty ambulating. The patient was found to have renal failure on laboratory studies. He was also found to have urinary retention. Baldwin catheter was placed. I discussed patient's laboratory and radiographic studies with him. I also discussed his condition with the on-call [facility]. The patient was treated with IV fluids in the emergency department. He was not found to have any signs of urinary tract infection. Triage Nursing notes reviewed. Prior medical records reviewed Vital Signs: reviewed and remarkable for elevated blood pressure. Differential diagnosis: Infection, dehydration, metabolic abnormality, hypo/hyperglycemia, electrolyte disturbance, anemia, hypoxia, cardiac sources, intracerebral event, toxicologic, neurologic, as well as other pathologies. ER treatment provided: See below Diagnostics interpreted by me: ECG: EKG revealed sinus rhythm at 86 bpm. There was no acute ST segment abnormalities noted. PACs were appreciated. This was compared to a tracing from October 26, 2021. The atrial ectopy is new compared to the previous tracings. Cardiac Monitoring: An order was placed for continuous cardiac monitoring. The monitor shows a rate of 96 bpm with sinus rhythm. Laboratory studies: As stated above and show below. Imaging studies: See below Consultation(s): I discussed this case with Dr. Mayo who was field applications specialist for the [facility] group. I have personally spent greater than 40 minutes of critical care time in the direct management of this patient. This includes bedside care, interpretation of diagnostic studies, and testing, discussion with consultants, patient, and family members, and other required patient management activities. This 40 minutes is in excess of all separately billable procedures. Past Med/Surg History Medical History ASCVD (arteriosclerotic cardiovascular disease) Benign prostatic hyperplasia Bleeding disorder Per new pt paperwork marked "long ago" Coronary artery calcification History of rib fracture 7-8 year ago, repaired surgically Hypertension 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 Rheumatoid arthritis of upper arm Rib fractures Tinnitus Surgical History H/O hernia repair History of tonsillectomy Family History Mother Cancer Other No family history of adverse response to anesthesia No family history of bleeding disorder Social History Smoking Status: Never smoker Hx Alcohol Use: No Hx Substance Use: No Preferred Language: Macedonian Communication Ability: Effective Hand Laminator Required: No Beliefs That Will Affect Care: None marital status: / Current Living Situation: Alone Current Living Situation Comment: condo current occupational status: retired Feels Safe at Home: Yes Safety Concerns: Feels Safe At This Time Assistive Devices: Cane, Glasses and Walker Assistive Devices Comment: Has not been using his cane and walker at home Allergies Allergies Allergy/AdvReac Type Severity Reaction Status Date / Time citalopram Allergy Unknown ON [facility] MED Verified 01/30/22 19:50 LIST pollen extracts Allergy Unknown ON [facility] MED Verified 01/30/22 19:50 LIST fluoxetine AdvReac Intermediate BAD PT Verified 01/30/22 19:50 REACTION infliximab [From Remicade] AdvReac Intermediate RIGORS & Verified 01/30/22 19:50 CHILLS Home Meds Home Medications Medication Instructions Recorded Confirmed aspirin 81 mg tablet,delayed 81 mg PO DAILY 04/01/18 01/30/22 release (Adult Low Dose Aspirin) gtzhrels-hcz-ganzc acid 300 1 tab PO HS 04/01/18 01/30/22 mcg-lycopene 600 mcg-lutein 300 mcg tablet (Centrum Silver Men) cholecalciferol (vitamin D3) 50 50 mcg PO DAILY 10/26/21 01/30/22 mcg (2,000 unit) tablet (Vitamin D3) mirabegron 50 mg tablet,extended 50 mg PO DAILY 10/26/21 01/30/22 release 24 hr (Myrbetriq) rosuvastatin 10 mg tablet 10 mg PO DAILY 01/30/22 01/30/22 Previous Rx's Medication Instructions Recorded Wheeled Walker #1 ea 10/27/21 Results & Data (ED) Vital Signs Vital Signs - 24 hr 01/30/22 15:21 01/30/22 18:08 01/30/22 18:28 Temperature 36.4 C L Temperature Source Temporal Artery Scan Pulse Rate 75 77 Pulse Rhythm Regular Pulse Strength Normal Respiratory Rate 20 24 Respiratory Effort / Characteristics Non-Labored Spontaneous Respiratory Depth Normal Respiratory Pattern Regular Blood Pressure 151/86 H 178/96 H Blood Pressure Mean 107 123 Pulse Oximetry 100 Oxygen Delivery Method Room Air Sepsis Recent Fever Within 48 Hours No Sepsis New/Unexplained Change in Mental Status N/A Sepsis Action Taken by Nursing No Action Required 01/30/22 18:28 01/30/22 18:30 01/30/22 18:30 Temperature Temperature Source Pulse Rate 83 86 Pulse Rhythm Pulse Strength Respiratory Rate 27 H 20 Respiratory Effort / Characteristics Respiratory Depth Respiratory Pattern Blood Pressure 170/92 H Blood Pressure Mean 118 Pulse Oximetry Oxygen Delivery Method Sepsis Recent Fever Within 48 Hours Sepsis New/Unexplained Change in Mental Status Sepsis Action Taken by Nursing 01/30/22 19:29 01/30/22 19:30 01/30/22 20:00 Temperature Temperature Source Pulse Rate 107 H 105 H 102 H Pulse Rhythm Pulse Strength Respiratory Rate 20 Respiratory Effort / Characteristics Respiratory Depth Respiratory Pattern Blood Pressure 175/107 H 182/101 H 181/106 H Blood Pressure Mean 129 128 131 Pulse Oximetry Oxygen Delivery Method Sepsis Recent Fever Within 48 Hours Sepsis New/Unexplained Change in Mental Status Sepsis Action Taken by Nursing 01/30/22 20:30 Temperature Temperature Source Pulse Rate 96 H Pulse Rhythm Pulse Strength Respiratory Rate 17 Respiratory Effort / Characteristics Respiratory Depth Respiratory Pattern Blood Pressure 175/109 H Blood Pressure Mean 131 Pulse Oximetry Oxygen Delivery Method Sepsis Recent Fever Within 48 Hours Sepsis New/Unexplained Change in Mental Status Sepsis Action Taken by Prison Medications Current Medication List: was personally reviewed by me Laboratory Data Attestation: I reviewed the patient's lab results. Result diagrams: 01/31/22 05:25 01/31/22 05:25 Lab Results 01/30/22 01/30/22 01/30/22 Range/Units 16:45 16:45 16:45 WBC 6.70 (4.8-10.8) K/ul RBC 4.64 (4.63-6.08) M/uL Hgb 13.0 L (14.0-18.0) g/dl Hct 37.7 L (40.1-51.0) % MCV 81.3 (80.0-100.0) fL MCH 28.0 (25.0-34.0) pg MCHC 34.5 (32.0-36.0) g/dL RDW Std Deviation 39.6 (36.4-46.3) fL RDW Coeff of Daryl 13.5 (11.5-14.5) % Plt Count 267 (130-400) K/uL MPV 11.4 (9.4-12.4) fL Immature Gran % (Auto) 0.3 % Neut % (Auto) 72.4 % Lymph % (Auto) 15.4 % [place] % (Auto) 8.8 % Eos % (Auto) 2.7 % Baso % (Auto) 0.4 % Neut # (Auto) 4.85 (1.4-6.5) K/uL Lymph # (Auto) 1.03 L (1.2-3.4) K/uL [place] # (Auto) 0.59 (0.24-0.82) K/uL Eos # (Auto) 0.18 (0-0.50) K/uL Baso # (Auto) 0.03 (0-0.2) K/uL Immature Gran # (Auto) 0.02 (0.00-0.02) K/uL PT Cancelled INR Cancelled APTT Cancelled PTT Ratio Cancelled Sodium 141 (136-145) mmol/L Potassium 3.9 (3.5-5.1) mmol/L Chloride 105 (98-107) mmol/L Carbon Dioxide 25 (21-32) mmol/L Anion Gap 11 (3-11) BUN 103 H (6-23) mg/dl Creatinine 8.25 H* (0.6-1.4) mg/dl Est Cr Clr Drug Dosing Not Reportable Est GFR ( Amer) 6.2 ml/min Est GFR (Non-Af Amer) 5.4 ml/min BUN/Creatinine Ratio 12.5 (10-20) Glucose 120 H (70-99(Fasting)) mg/dl Calcium 9.4 (8.5-10.1) mg/dl Magnesium 2.9 H (1.7-2.4) mg/dl Total Bilirubin 0.6 (0.2-1.0) mg/dl AST 13 (13-39) U/L ALT 17 (7-52) U/L Alkaline Phosphatase 63 (34-104) U/L Total Creatine Kinase (30-223) U/L Troponin I High Sens 11.8 (0-20) pg/ml Total Protein 7.3 (6.0-8.3) gm/dl Albumin 3.9 (3.4-5.0) gm/dl Globulin 3.4 (2.5-4.0) gm/dl Albumin/Globulin Ratio 1.1 (0.9-2) Urine Color Urine Appearance (Clear) Urine pH (4.5-7.5) Ur Specific [place] (1.000-1.030) Urine Protein (Negative) Urine Glucose (UA) (Negative) Urine Ketones (Negative) Urine Blood (Negative) Urine Nitrite (Negative) Urine Bilirubin (Negative) Urine Urobilinogen (Negative) Ur Leukocyte Esterase (Negative) Urine WBC (Auto) (0-5) /hpf Urine RBC (Auto) (0-4) /hpf U Hyaline Cast (Auto) (0-5) /lpf U Epithel Cells (Auto) (0-5) /lpf Urine Bacteria (Auto) (Negative) SARS-CoV-2, RNA, NAAT (NEGATIVE) 01/30/22 01/30/22 01/30/22 Range/Units 16:45 18:02 18:03 WBC (4.8-10.8) K/ul RBC (4.63-6.08) M/uL Hgb (14.0-18.0) g/dl Hct (40.1-51.0) % MCV (80.0-100.0) fL MCH (25.0-34.0) pg MCHC (32.0-36.0) g/dL RDW Std Deviation (36.4-46.3) fL RDW Coeff of Daryl (11.5-14.5) % Plt Count (130-400) K/uL MPV (9.4-12.4) fL Immature Gran % (Auto) % Neut % (Auto) % Lymph % (Auto) % [place] % (Auto) % Eos % (Auto) % Baso % (Auto) % Neut # (Auto) (1.4-6.5) K/uL Lymph # (Auto) (1.2-3.4) K/uL [place] # (Auto) (0.24-0.82) K/uL Eos # (Auto) (0-0.50) K/uL Baso # (Auto) (0-0.2) K/uL Immature Gran # (Auto) (0.00-0.02) K/uL PT 11.6 INR 1.1 APTT 27.7 PTT Ratio 1.0 Sodium (136-145) mmol/L Potassium (3.5-5.1) mmol/L Chloride (98-107) mmol/L Carbon Dioxide (21-32) mmol/L Anion Gap (3-11) BUN (6-23) mg/dl Creatinine (0.6-1.4) mg/dl Est Cr Clr Drug Dosing Est GFR ( Amer) ml/min Est GFR (Non-Af Amer) ml/min BUN/Creatinine Ratio (10-20) Glucose (70-99(Fasting)) mg/dl Calcium (8.5-10.1) mg/dl Magnesium (1.7-2.4) mg/dl Total Bilirubin (0.2-1.0) mg/dl AST (13-39) U/L ALT (7-52) U/L Alkaline Phosphatase (34-104) U/L Total Creatine Kinase 86 (30-223) U/L Troponin I High Sens (0-20) pg/ml Total Protein (6.0-8.3) gm/dl Albumin (3.4-5.0) gm/dl Globulin (2.5-4.0) gm/dl Albumin/Globulin Ratio (0.9-2) Urine Color Urine Appearance (Clear) Urine pH (4.5-7.5) Ur Specific [place] (1.000-1.030) Urine Protein (Negative) Urine Glucose (UA) (Negative) Urine Ketones (Negative) Urine Blood (Negative) Urine Nitrite (Negative) Urine Bilirubin (Negative) Urine Urobilinogen (Negative) Ur Leukocyte Esterase (Negative) Urine WBC (Auto) (0-5) /hpf Urine RBC (Auto) (0-4) /hpf U Hyaline Cast (Auto) (0-5) /lpf U Epithel Cells (Auto) (0-5) /lpf Urine Bacteria (Auto) (Negative) SARS-CoV-2, RNA, NAAT NEGATIVE (NEGATIVE) 01/30/22 Range/Units 18:49 WBC (4.8-10.8) K/ul RBC (4.63-6.08) M/uL Hgb (14.0-18.0) g/dl Hct (40.1-51.0) % MCV (80.0-100.0) fL MCH (25.0-34.0) pg MCHC (32.0-36.0) g/dL RDW Std Deviation (36.4-46.3) fL RDW Coeff of Daryl (11.5-14.5) % Plt Count (130-400) K/uL MPV (9.4-12.4) fL Immature Gran % (Auto) % Neut % (Auto) % Lymph % (Auto) % [place] % (Auto) % Eos % (Auto) % Baso % (Auto) % Neut # (Auto) (1.4-6.5) K/uL Lymph # (Auto) (1.2-3.4) K/uL [place] # (Auto) (0.24-0.82) K/uL Eos # (Auto) (0-0.50) K/uL Baso # (Auto) (0-0.2) K/uL Immature Gran # (Auto) (0.00-0.02) K/uL PT INR APTT PTT Ratio Sodium (136-145) mmol/L Potassium (3.5-5.1) mmol/L Chloride (98-107) mmol/L Carbon Dioxide (21-32) mmol/L Anion Gap (3-11) BUN (6-23) mg/dl Creatinine (0.6-1.4) mg/dl Est Cr Clr Drug Dosing Est GFR ( Amer) ml/min Est GFR (Non-Af Amer) ml/min BUN/Creatinine Ratio (10-20) Glucose (70-99(Fasting)) mg/dl Calcium (8.5-10.1) mg/dl Magnesium (1.7-2.4) mg/dl Total Bilirubin (0.2-1.0) mg/dl AST (13-39) U/L ALT (7-52) U/L Alkaline Phosphatase (34-104) U/L Total Creatine Kinase (30-223) U/L Troponin I High Sens (0-20) pg/ml Total Protein (6.0-8.3) gm/dl Albumin (3.4-5.0) gm/dl Globulin (2.5-4.0) gm/dl Albumin/Globulin Ratio (0.9-2) Urine Color Yellow Urine Appearance Clear (Clear) Urine pH 5.0 (4.5-7.5) Ur Specific [place] 1.010 (1.000-1.030) Urine Protein Negative (Negative) Urine Glucose (UA) Negative (Negative) Urine Ketones Negative (Negative) Urine Blood 3+ H (Negative) Urine Nitrite Negative (Negative) Urine Bilirubin Negative (Negative) Urine Urobilinogen Negative (Negative) Ur Leukocyte Esterase Trace H (Negative) Urine WBC (Auto) 1-5 (0-5) /hpf Urine RBC (Auto) 5-10 H (0-4) /hpf U Hyaline Cast (Auto) 1-5 (0-5) /lpf U Epithel Cells (Auto) 0-5 (0-5) /lpf Urine Bacteria (Auto) Negative (Negative) SARS-CoV-2, RNA, NAAT (NEGATIVE) Administered Medications Heparin Sodium (Porcine) (Heparin Sod 5,000 Unit/0.5 Ml Vial) 5,000 units SQ Q8 [facility] Stop: 03/01/22 21:59 Last Admin: 01/31/22 05:47 Dose: Not Given Documented By: [facility] Admin: 01/30/22 23:55 Dose: 5,000 units Documented By: MARY Sodium Chloride (Nss 1000ml) 1,000 mls @ 80 mls/hr IV .[id number] [facility] Stop: 03/01/22 21:55 Last Admin: 01/30/22 22:09 Dose: 80 mls/hr Documented By: MARY Multivitamins/Minerals (Cerovite Adv Formula Tab) 1 tab PO [facility] Stop: 03/01/22 22:14 Last Admin: 01/31/22 00:05 Dose: Not Given Documented By: MARY Tamsulosin HCl (Tamsulosin Hcl 0.4 Mg Cap) 0.4 mg PO [facility] Stop: 03/01/22 21:55 Last Admin: 01/31/22 00:04 Dose: Not Given Documented By: [facility] Discontinued Medications Sodium Chloride (Nss 1000ml) 1,000 mls @ 999 mls/hr IV .Q1H1M ONE Stop: 01/30/22 18:54 Last Infusion: 01/30/22 19:39 Dose: 0 mls/hr Documented By: Admin: 01/30/22 18:06 Dose: 999 mls/hr Documented By: GONSALO Sodium Chloride (Nss 1000ml) 1,000 mls @ 999 mls/hr IV .Q1H1M ONE Stop: 01/30/22 20:31 Last Infusion: 01/30/22 20:40 Dose: 0 mls/hr Documented By: Admin: 01/30/22 19:39 Dose: 999 mls/hr Documented By: ALXEANDRA Imaging Data Radiologist's Impression: Chest X-Ray 01/30/22 17:45 XR chest 1V portable HISTORY: Shortness of breath. COMPARISON: Chest 10/26/2021. FINDINGS: The lungs are clear. The heart is normal in size. No pleural effusions. No pneumothorax. Old, healed right-sided rib fractures again noted. IMPRESSION: No acute process. ACT 112: Negative or not required by law. Electronically signed by: Sloan Daniel M.D. 01/30/2022 7:[address] 01/30/22 17:[address] DOSE: HISTORY: fall TECHNIQUE: Multiaxial CT images of the cervical spine were performed and reformatted in the sagittal and coronal plane without the use of contrast. A dose lowering technique was utilized adhering to the principles of ALARA. COMPARISON: Cervical spine CT 11/17/2021. FINDINGS: No fractures. No subluxation. Prevertebral soft tissues and the C1-C2 interval are intact. No pneumothorax. Moderate to severe degenerative disc disease again noted throughout the cervical spine. IMPRESSION: No fractures within the cervical spine. ACT 112: Negative or not required by law. Electronically signed by: Sloan Daniel M.D. 01/30/2022 7:[address] 01/30/22 17:[address] DOSE: HISTORY: fall TECHNIQUE: Multiaxial CT images of the head were performed without the use of intravenous contrast. Automated exposure control was utilized for this study. A dose lowering technique was utilized adhering to the principles of ALARA. Comparison: Head CT 11/17/2021. Findings: Old nasal bone fractures are again noted. The paranasal sinuses and mastoid air cells are clear. The calvarium and skull base are intact. There is no mass, hematoma, midline shift, acute infarct. White matter hypodensity is nonspecific but suggestive of microvascular ischemic change. The ventricles and sulci demonstrate mild age-related involutional changes. Impression: No acute intracranial abnormality. ACT 112: Negative or not required by law. Electronically signed by: Sloan Daniel M.D. 01/30/2022 7:27 PM Abdomen/Pelvis CT 01/30/22 18:[address] WITHOUT CONTRAST CT DOSE: 1295.60 mGy.cm HISTORY: renal failure TECHNIQUE: Multiaxial CT images of the abdomen and pelvis were performed without contrast. A dose lowering technique was utilized adhering to the principles of ALARA. COMPARISON STUDY: Abdomen and pelvis CT 06/14/2017. FINDINGS: The lung bases are clear. No pneumoperitoneum. No pneumatosis. No fractures within the visualized osseous structures. There is mild body wall edema. Streak artifact from the patient's overlapping right arm. The hypodense lesions within the liver seen on the prior study are not well evaluated due to the streak artifact. The gallbladder, spleen, adrenal glands, and pancreas appear within normal limits. No retroperitoneal lymphadenopathy. Ectatic abdominal aorta with moderate calcified plaque again noted. There is mild bilateral perinephric edema. There are few punctate stones within the lower pole the left kidney. No right renal calculi. There is a stable 1.7 cm hypodense lesion within the lower pole the right kidney. This favors a cyst. There is mild bilateral hydroureteronephrosis to the level of the ureterovesical junctions. No obstructing stones identified. There is bladder wall thickening. The bladder is decompressed by a Baldwin catheter. There is a 1 cm nodule within the right bladder wall image 325. The prostate gland remains enlarged. There are suboptimal evaluation for bowel pathology due to the lack of intravenous and oral contrast. However, there is no definite bowel wall thickening or obstruction. Colonic diverticulosis. No evidence for acute diverticulitis. Normal appendix. IMPRESSION: 1. Mild bilateral hydroureteronephrosis to the level of the ureterovesical junctions. No obstructing stones identified. 2. Left-sided nephrolithiasis. 3. Mild bladder wall thickening. This could be due to underdistention or chronic outlet obstruction from the enlarged prostate gland. Recommend correlation with urinalysis. . 4. There is a 1 cm nodule along the right bladder wall. This concerning for urothelial malignancy. Follow-up cystoscopy recommended for further evaluation. 5. Additional findings as described above. ACT 112: Negative or not required by law. Electronically signed by: Sloan Daniel M.D. 01/30/2022 7:40 PM Discharge Plan Visit Data Chief Complaint: Referred by Doctor Stated Complaint: REF BY DR, NO ENERGY, NOT EATING OR DRINKING ED Provider: Roger Madrid Discharge Problem: Obstructive uropathy, Acute renal failure, Weakness, Falls frequently Patient Disposition: Admitted As Inpatient Discharge Instructions Interventions: ED Discharge Assessment Last Done: 01/30/22 21:18 : Acute renal failure Qualifiers: Acute renal failure type: unspecified Qualified Code(s): N17.9 - Acute kidney failure, unspecified
[2022-01-30 18:30] LABS: INR 1.1 (0.9-1.1); Partial Thromboplastin Time 27.7 Seconds (21.0-31.0); Prothrombin Time 11.6 Seconds (9.0-12.0)
--- NOTE | 2022-01-30 19:05 | XRay Report ---
XR chest 1V portable HISTORY: Shortness of breath. COMPARISON: Chest 10/26/2021. FINDINGS: The lungs are clear. The heart is normal in size. No pleural effusions. No pneumothorax. Ol d, healed right-sided rib fractures again noted. IMPRESSION: No acute process. ACT 112: Negative or not required by law. Electronically signed by: Sloan Daniel M.D. 01/30/2022 7:03 PM
[2022-01-30 19:06] LABS: Appearance Urine Clear (Clear); Bacteria Urine Automated Negative (Negative); Bilirubin Urine Negative (Negative); Blood Urine 3+ (Negative); Color Urine Yellow; Epithelial Cell Urine Auto 0-5 /lpf (0-5); Glucose Urine UA Negative (Negative); Ketones Urine Negative (Negative); Leukocyte Esterase Urine Trace (Negative); Nitrite Urine Negative (Negative); Protein Urine Negative (Negative); Urobilinogen Urine Negative (Negative)
--- NOTE | 2022-01-30 19:29 | CT Scan Report ---
HEAD CT NONCONTRAST CT DOSE: HISTORY: fall TECHNIQUE: Multiaxial CT images of the head were performed without the use of intravenous contrast. A utomated exposure control was utilized for this study. A dose lowering technique was utilized adheri ng to the principles of ALARA. Comparison: Head CT 11/17/2021. Findings: Old nasal bone fractures are again noted. The paranasal sinuses and mastoid air cells are c lear. The calvarium and skull base are intact. There is no mass, hematoma, midline shift, acute infar ct. White matter hypodensity is nonspecific but suggestive of microvascular ischemic change. The vent ricles and sulci demonstrate mild age-related involutional changes. Impression: No acute intracranial abnormality. ACT 112: Negative or not required by law. Electronically signed by: Sloan Daniel M.D. 01/30/2022 7:27 PM
--- NOTE | 2022-01-30 19:33 | CT Scan Report ---
CERVICAL SPINE CT CT DOSE: HISTORY: fall TECHNIQUE: Multiaxial CT images of the cervical spine were performed and reformatted in the sagittal and coronal plane without the use of contrast. A dose lowering technique was utilized adhering to e principles of ALARA. COMPARISON: Cervical spine CT 11/17/2021. FINDINGS: No fractures. No subluxation. Prevertebral soft tissues and the C1-C2 interval are intact. No pneumothorax. Moderate to severe degenerative disc disease again noted throughout the cervical spi ne. IMPRESSION: No fractures within the cervical spine. ACT 112: Negative or not required by law. Electronically signed by: Sloan Daniel M.D. 01/30/2022 7:31 PM
--- NOTE | 2022-01-30 19:42 | CT Scan Report ---
ABDOMEN AND PELVIS CT WITHOUT CONTRAST CT DOSE: 1295.60 mGy.cm HISTORY: renal failure TECHNIQUE: Multiaxial CT images of the abdomen and pelvis were performed without contrast. A dose lo wering technique was utilized adhering to the principles of ALARA. COMPARISON STUDY: Abdomen and pelvis CT 06/14/2017. FINDINGS: The lung bases are clear. No pneumoperitoneum. No pneumatosis. No fractures within the visu alized osseous structures. There is mild body wall edema. Streak artifact from the patient's overlapp ing right arm. The hypodense lesions within the liver seen on the prior study are not well evaluated due to the streak artifact. The gallbladder, spleen, adrenal glands, and pancreas appear within carleen l limits. No retroperitoneal lymphadenopathy. Ectatic abdominal aorta with moderate calcified plaque again noted. There is mild bilateral perinephric edema. There are few punctate stones within the lowe r pole the left kidney. No right renal calculi. There is a stable 1.7 cm hypodense lesion within the lower pole the right kidney. This favors a cyst. There is mild bilateral hydroureteronephrosis to the level of the ureterovesical junctions. No obstructing stones identified. There is bladder wall thick ening. The bladder is decompressed by a Baldwin catheter. There is a 1 cm nodule within the right bladd er wall image 325. The prostate gland remains enlarged. There are suboptimal evaluation for bowel pat hology due to the lack of intravenous and oral contrast. However, there is no definite bowel wall thi ckening or obstruction. Colonic diverticulosis. No evidence for acute diverticulitis. Normal appendix . IMPRESSION: 1. Mild bilateral hydroureteronephrosis to the level of the ureterovesical junctions. No obstructing stones identified. 2. Left-sided nephrolithiasis. 3. Mild bladder wall thickening. This could be due to underdistention or chronic outlet obstruction f rom the enlarged prostate gland. Recommend correlation with urinalysis. . 4. There is a 1 cm nodule along the right bladder wall. This concerning for urothelial malignancy. Fo llow-up cystoscopy recommended for further evaluation. 5. Additional findings as described above. ACT 112: Negative or not required by law. Electronically signed by: Sloan Daniel M.D. 01/30/2022 7:40 PM
[2022-01-30] MEDS ORDERED: POLYETHYLENE (MIRALAX) 17 GM PACK PO PRN (21:56)
[2022-01-30] MEDS ORDERED: LABETALOL HCL IV 5 MG/ML 20ML IV PRN (21:56)
[2022-01-30] MEDS ORDERED: SODIUM CHLORIDE 0.9% 1000ML 1,000 ML IV SCH (21:56)
[2022-01-30] MEDS ORDERED: NITROGLYCERIN SL 0.4 MG/TAB TAB SL PRN (21:56)
[2022-01-30] MEDS ORDERED: ACETAMINOPHEN 325 MG TAB PO PRN (21:56)
--- NOTE | 2022-01-30 21:58 | History and Physical Report ---
DATE OF ADMISSION: 01/30/2022 CHIEF COMPLAINT: Frequent falls and weakness, some incontinence and found to have MARÍA and obstructive uropathy. 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 He states he ambulates without though he has walker at home,presents with because of frequent falls, some incontinence of urine and some confusion. The patient is currently alert and oriented. Denies any other complaints. He says, he is he is emptying his bladder okay, but in the nighttime when he sleeps, he is getting incontinence of urine. Denies any pain or burning micturition. Denies any constipation or diarrhea. Denies any abdominal pain. No nausea or vomiting. Appetite is down. No difficulty swallowing. No chest pain, no shortness of breath, no cough, no fevers. Feeling cold. No headache, no blurred visions, no earache, no runny nose, no sore throat. Blood pressures were somewhat running high in the ER, afebrile, saturating okay on room air. His creatinine was 8.25, BUN was 103. ALLERGIES: FLUOXETINE, CITALOPRAM, POLLEN, REMICADE. PAST MEDICAL HISTORY: As mentioned above. PAST SURGICAL HISTORY: Colonoscopy, tonsillectomy. MEDICATIONS: Currently as per [facility], the patient is on lovastatin 10 mg p.o. daily, Myrbetriq 50 mg p.o. daily, vitamin D 50 mcg p.o. daily, multivitamins with minerals 1 tablet daily, aspirin enteric coated 81 mg p.o. daily. FAMILY HISTORY: Significant for mother had stomach and liver cancer, father had heart attack. SOCIAL HISTORY: Currently , lives alone. Quit smoking in 2013, smoked one to two cigars per week. . No alcohol use. No drug use. REVIEW OF SYSTEMS: As per HPI. Rest of review of systems is negative. PHYSICAL EXAMINATION: GENERAL: The patient is alert and oriented x3, not in acute distress. VITAL SIGNS: Temperature 36.4, pulse 105, respiratory rate 20, blood pressure 182/101, oxygen 100% on room air. HEENT: Pupils equal, round and reactive to light. Oral mucosa moist. NECK: No JVD, no neck masses. CARDIOVASCULAR: S1 and S2 heard. Tachycardia. No murmurs. RESPIRATORY SYSTEM: Normal AP diameter. No accessory muscle use. No wheezing, no crackles. ABDOMEN: Soft, bowel sounds present, nontender, no distention. CENTRAL NERVOUS SYSTEM: Alert and oriented x3. Speech is clear. No facial droop. Insight is okay. Obeys simple commands. Moves extremities. EXTREMITIES: No edema, no erythema seen. LABORATORY DATA: WBC 6.7, hemoglobin 13, hematocrit 37.7, platelets 267. PT 11.6, INR 1.1, APTT 27.7. Sodium 141, potassium 3.9, chloride 105, bicarb 25, BUN 103, creatinine 8.2, serum glucose 120, calcium 9.4, magnesium 2.9, total bilirubin 0.6, AST 13, ALT 17, alkaline phosphatase 63, total creatine kinase 86. Troponin I high sensitivity 11.8. Urinalysis, trace leukocyte esterase. SARS-CoV-2 rapid test negative. IMAGING DATA: CT of abdomen and pelvis without contrast, mild bilateral hydroureteronephrosis to the level of the ureterovesical junctions. No obstructing stones identified, left-sided nephrolithiasis, mild bladder wall thickening. This could be due to under distention or chronic outlet obstruction from enlarged prostate gland, 1 cm nodule along the right bladder wall concerning for urothelial malignancy. Followup cystoscopy recommended. CT of the head, no acute findings. Cervical spine CT, no acute findings. Chest x- ray, no acute process. EKG: Poor quality interpretation, sinus rhythm with marked sinus arrhythmia with first-degree AV block at a rate of 86. Left anterior fascicular block. ASSESSMENT AND PLAN: This is an 86-year-old male who presents with frequent falls, urinary incontinence, questionable confusion, found to have acute kidney injury, possible obstructive uropathy. 1. Acute kidney injury, possible obstructive uropathy, hydroureteronephrosis on the CAT scan. Placed Baldwin in the ER, draining good amount of urine. Continue Baldwin catheter. Continue Flomax. Gentle fluids, normal saline at 80 mL per hour. Also, there is concerning for bladder lesion. Consult Urology in the a.m. and Nephrology in the a.m. for further recommendations. Follow urine cultures. 2. Urinary incontinence, possibly from the BPH.. Continue Myrbetriq. 3. Possible benign prostatic hypertrophy. We will add Flomax. 4. Hyperlipidemia: Continue statin. 5. History of rheumatoid arthritis, not on any medication currently. 6. Osteoporosis. 7. Alzheimer disease. Needs followup. 8. Hypertension. The patient's blood pressure is elevated. No history of hypertension. Placed on IV labetalol p.r.n. 9. Deep venous thrombosis prophylaxis: Heparin subcutaneously. DISPOSITION: Admit to tele floor. Level 1 full code. Expect to discharge home and follow with family doctor. Job ID: [id number] [facility]
[2022-01-30] MEDS: HEPARIN SOD 5,000 UNIT/0.5 ML VIAL SQ SCH ×2 (23:46→23:55)
[2022-01-30] MEDS: TAMSULOSIN HCL 0.4 MG CAP PO SCH (23:46)
[2022-01-30] MEDS: CEROVITE ADV FORMULA TAB PO SCH (23:46)
[2022-01-31] MEDS: TAMSULOSIN HCL 0.4 MG CAP PO SCH ×2 (00:04→20:57)
[2022-01-31] MEDS: CEROVITE ADV FORMULA TAB PO SCH ×2 (00:05→20:57)
[2022-01-31] MEDS: HEPARIN SOD 5,000 UNIT/0.5 ML VIAL SQ SCH ×3 (05:47→20:58)
[2022-01-31 06:11] LABS: Basophils # (auto) 0.02 K/uL (0-0.2); Basophils % (auto) 0.3 %; Eosinophils # (auto) 0.21 K/uL (0-0.50); Eosinophils % (auto) 3.6 %; Hematocrit (blood only) 33.3 % (40.1-51.0); Hemoglobin 11.6 g/dl (14.0-18.0); Immature Granulocytes # (auto) 0.02 K/uL (0.00-0.02); Immature Granulocytes % (auto) 0.3 %; Lymphocytes # (auto) 1.38 K/uL (1.2-3.4); Lymphocytes % (auto) 23.8 %; Mean Corpuscular Hemoglobin 27.8 pg (25.0-34.0); Mean Corpuscular Hgb Conc 34.8 g/dL (32.0-36.0); Mean Corpuscular Volume 79.9 fL (80.0-100.0); Mean Platelet Volume 10.9 fL (9.4-12.4); Monocytes # (auto) 0.68 K/uL (0.24-0.82); Monocytes % (auto) 11.7 %; Neutrophils # (auto) 3.49 K/uL (1.4-6.5); Neutrophils % (auto) 60.3 %; Platelet Count 246 K/uL (130-400); RDW Coefficient of Variation 13.4 % (11.5-14.5); RDW Standard Deviation 37.8 fL (36.4-46.3); Red Blood Count 4.17 M/uL (4.63-6.08)
[2022-01-31 06:53] LABS: BUN Creatinine Ratio 19.9 (10-20); Calcium 8.8 mg/dl (8.5-10.1); Creatinine Clr Calc Pharmacy 13.7 ml/min; Est GFR (African American) 17.2 ml/min; Est GFR (Non-African American) 14.8 ml/min; Magnesium 2.4 mg/dl (1.7-2.4); Potassium 3.6 mmol/L (3.5-5.1)
--- NOTE | 2022-01-31 08:08 | Urology Consultation ---
Date of Consultation January 31, 2022 Assessment & Plan (1) Obstructive uropathy: (2) Acute renal failure: (3) Weakness: Plan 86yo M admitted with acute kidney injury, obstructive uropathy. Urology consulted for obstructive uropathy, possible bladder lesion. - CTAP showing mild b/l hydro likely due to chronic outlet obstruction, no obstructing stones, mild bladder wall thickening, 1cm nodule along the right bladder wall, left nephrolithiasis - Baldwin catheter inserted on admission, drained 1600ml following insertion. - Afebrile, hemodynamically stable. - Labs reviewed - creatinine downtrending from 8.25-3.56 today, no leukocytosis. Continue to trend. - Urine culture pending. - Maintain Baldwin catheter for now. Will arrange outpatient voiding trial. - Will plan for outpatient follow-up for voiding trial and possible cystoscopy for further discussion/evaluation of bladder findings. - Continue supportive care and Flomax. - Urology will sign-off for now. Please contact us with any further questions, concerns, or changes in patient status. History of Present Illness Reason for Consultation: obstructive uropathy, possible bladder lesion Attending Physician: Anyi Sanchez MD History of Present Illness 86 year old male with a past medical history significant for hypercholesterolemia, osteoporosis, age-related Alzheimer's disease, rheumatoid arthritis who presented with generalized weakness and falls and found to have obstructive uropathy and MARÍA. Urology consulted for obstructive uropathy, possible bladder lesion Patient is known to the urology service, follows with Dr. Alvarez. Last seen 12/26/21. Was previously on dutasteride tamsulosin and Myrbetriq for BPH w/LUTS. Pt examined at bedside this AM. Awake, resting in bed on arrival. No acute distress. Baldwin catheter intact, draining clear yellow urine with some sediment noted in tubing. He denied any pain or discomfort at time of exam. CT abdomen pelvis - 1. Mild bilateral hydroureteronephrosis to the level of the ureterovesical junctions. No obstructing stones identified. 2. Left-sided nephrolithiasis. 3. Mild bladder wall thickening. This could be due to underdistention or chronic outlet obstruction from the enlarged prostate gland. Recommend correlation with urinalysis. . 4. There is a 1 cm nodule along the right bladder wall. This concerning for urothelial malignancy. Follow-up cystoscopy recommended for further evaluation. Allergies Allergy/AdvReac Type Severity Reaction Status Date / Time citalopram Allergy Unknown ON [facility] MED Verified 01/30/22 19:50 LIST pollen extracts Allergy Unknown ON [facility] MED Verified 01/30/22 19:50 LIST fluoxetine AdvReac Intermediate BAD PT Verified 01/30/22 19:50 REACTION infliximab [From Remicade] AdvReac Intermediate RIGORS & Verified 01/30/22 19:50 CHILLS Home Medications Medication Instructions Recorded Confirmed Type aspirin 81 mg tablet,delayed 81 mg PO DAILY 04/01/18 01/30/22 History release (Adult Low Dose Aspirin) rngkniag-ogp-rnnmu acid 300 1 tab PO HS 04/01/18 01/30/22 History mcg-lycopene 600 mcg-lutein 300 mcg tablet (Centrum Silver Men) cholecalciferol (vitamin D3) 50 50 mcg PO DAILY 10/26/21 01/30/22 History mcg (2,000 unit) tablet (Vitamin D3) mirabegron 50 mg tablet,extended 50 mg PO DAILY 10/26/21 01/30/22 History release 24 hr (Myrbetriq) Wheeled Walker #1 ea 10/27/21 Rx rosuvastatin 10 mg tablet 10 mg PO DAILY 01/30/22 01/30/22 History Patient History Medical History ASCVD (arteriosclerotic cardiovascular disease) Benign prostatic hyperplasia Bleeding disorder Per new pt paperwork marked "long ago" Coronary artery calcification History of rib fracture 7-8 year ago, repaired surgically Hypertension 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 Rheumatoid arthritis of upper arm Rib fractures Tinnitus Surgical History H/O hernia repair History of tonsillectomy Family History Mother Cancer Other No family history of adverse response to anesthesia No family history of bleeding disorder Social History Smoking Status: Never smoker Hx Alcohol Use: No Hx Substance Use: No Preferred Language: Pashto Communication Ability: Effective 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 Beliefs That Will Affect Care: None marital status: / Current Living Situation: Alone Current Living Situation Comment: maisha current occupational status: retired Feels Safe at Home: Yes Safety Concerns: Feels Safe At This Time Assistive Devices: Cane and Walker Assistive Devices Comment: Has not been using his cane and walker at home Review of Systems Review of Systems: All systems reviewed & are unremarkable except as noted in HPI & below Physical Exam Constitutional: no acute distress Neck: normal visual inspection Respiratory: no respiratory distress and no labored breathing Musculoskeletal: Head/Neck/Chest: normocephalic Skin: No visible rashes or lesions to exposed skin areas Neurologic: awake Psychiatric: Orientation: alert and oriented to person Genitourinary: Baldwin catheter intact, draining clear yellow urine with sediment in tubing Results & Data ([facility]) Vital Signs (Past 12 Hours) Vital Signs Temp Pulse Pulse Resp BP BP Pulse Ox 01/31/22 07:12 36.3 C L 70 18 148/77 H 97 01/31/22 02:37 36.4 C L 100 H 18 135/78 94 01/30/22 23:00 106 H 01/31/22 00:05 36.7 C 102 H 18 148/78 H 96 01/30/22 22:00 36.8 C 101 H 18 163/98 H 98 01/30/22 20:30 96 H 17 175/109 H 01/30/22 20:00 102 H 20 181/106 H O2 Del Method 01/31/22 07:12 Room Air 01/31/22 02:37 Room Air 01/30/22 23:00 01/31/22 00:05 Room Air 01/30/22 22:00 Room Air 01/30/22 20:30 01/30/22 20:00 PG Care Time/CCT Total # of Minutes Spent Total Time Spent with Patient: Total time spent is greater than 50% in coordination of care (as documented) at patient's floor/unit and/or counseling patient: Coding Level of Care Code 49186 Initial Inpt Care Lvl 2 Diagnoses Obstructive uropathy N13.9 Acute renal failure N17.9 Acute renal failure type: unspecified Weakness R53.1 (1) Acute renal failure Acute renal failure type: unspecified Qualified Code(s): N17.9 - Acute kidney failure, unspecified
[2022-01-31] MEDS: CHOLECALCIFEROL 1,000 UNITS 25 MCG TAB PO SCH (08:16)
[2022-01-31] MEDS: MIRABEGRON ER 25 MG TAB PO SCH (08:16)
[2022-01-31] MEDS: ROSUVASTATIN CALCIUM 10 MG TAB PO SCH (08:16)
[2022-01-31] MEDS: ASPIRIN 81 MG ECTAB PO SCH (08:16)
[2022-01-31] MEDS ORDERED: INFLUENZA VACCINE HIGH DOSE PF 65+ 0.7 ML SYR IM ONE (09:00)
--- NOTE | 2022-01-31 09:17 | Electrocardiogram Report ---
Test Reason : Blood Pressure : / mmHG Vent. 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
[2022-01-31] MEDS ORDERED: DEXTROSE 5% 1,000 ML IV SCH (10:30)
[2022-01-31] MEDS: POTASSIUM CHLORIDE 30 MEQ in DEXTROSE 5% 1,000 ML IV SCH ×2 (11:30→20:57)
--- NOTE | 2022-01-31 18:28 | Hospitalist Progress Note ---
Date of Service January 31, 2022 Assessment & Plan (1) Acute renal failure: (2) Weakness: (3) Falls frequently: Plan: Present on admission with weakness, fall dizziness and urinary incontinence MAÍRA CT abd/pelvis showed mild bilateral hydroureteronephrosis to the level of the ureterovesical junctions. Mild bladder wall thickening. 1 cm nodule along the right bladder wall. Creatinine on admission 8.3 Received IV fluid. creatinine improved to 3.5 Continue to avoid nephrotoxic agent Continue monitor BMP Bilateral hydroureteronephrosis Urology on board Recommend to maintain Baldwin catheter for nw Urology Will arrange for outpatient voiding trial. BPH Continue Flomax Bladder lesion Will need outpatient follow-up with urology for possible cystoscopy Hyperlipidemia: Continue statin. Hypertension. Continue monitor BP Deep venous thrombosis prophylaxis Heparin subcutaneously. Admission and Anticipated Discharge Date Admission Date: January 30, 2022 Subjective Pt was seen and examined for follow up of weakness and MARÍA Lying in bed with no acute distress Pt is very anxious to go home Spoke to daughter and son in law in details and answered all the questions Daughter said that she does not want pt to come home yet Pt denies any chest pain, palpitation, dizziness and sob Review of Systems Review of Systems: All systems reviewed & are unremarkable except as noted in Subjective Physical Exam Physical Exam: General- No acute distress Head- atraumatic Eyes- PERRL, EOMI, ENT- oropharynx clear Neck- supple, no JVD Lungs- clear to auscultation Heart- regular rhythm; no murmur Abdomen- normal bowel sounds, soft, nontender Extremities- no calf tenderness Neuro- alert, oriented x 3; PERRL, EOMI; no facial palsy; no dysarthria Skin- warm & dry Results & Data Results & Data ([facility]) Vital Signs (Past 12 Hours) Vital Signs Temp Pulse Pulse Resp BP Pulse Ox O2 Del Method 01/31/22 16:03 36.7 C 65 18 137/70 99 01/31/22 14:18 62 01/31/22 12:17 36.8 C 104 H 18 159/82 H 96 Room Air 01/31/22 07:12 36.3 C L 70 18 148/77 H 97 Room Air (1) Acute renal failure Acute renal failure type: unspecified Qualified Code(s): N17.9 - Acute kidney failure, unspecified
--- NOTE | 2022-01-31 19:10 | Consultation Report ---
NEPHROLOGY CONSULTATION NOTE DATE OF SERVICE: 01/31/2022 4. REASON FOR CONSULTATION: Acute renal failure. HISTORY OF PRESENT ILLNESS: The patient is an 86-year-old male with history of age-related Alzheimer 's dementia, chronic kidney disease stage III, history of some bladder outlet obstruction related wit h prostatic enlargement. The patient presented to the hospital because of frequent falls as well as urinary incontinence and confusion. Blood work done in the Emergency Department was very significant for creatinine of 8.25 and a BUN of 103. At baseline, his creatinine is normal with a creatinine of 0.8 as of 12/28/2021. Since admission, the patient has had a Baldwin catheter placed and with that, la rge amount of urine has been drained and this morning, labs are significantly better and creatinine i s now down to 3.56 overnight and BUN is down to 71. Sodium 148 and chloride 115. The patient is cur rently getting normal saline. The patient still appears to be very weak, somewhat confused. His vit al signs are good. He is making lots of urine and has a Baldwin catheter. Urology has already seen th e patient, who have suggested to continue with the Baldwin catheter and will need a cystoscopy as an ou tpatient to further evaluate the bladder lesion, which he has. ALLERGIES: FLUOXETINE, CITALOPRAM, POLLEN, AND REMICADE. PAST MEDICAL HISTORY AND SURGICAL HISTORY: Includes hypercholesterolemia, osteoporosis, age-related Alzheimer dementia, rheumatoid arthritis, hyperlipidemia, colonoscopy, tonsillectomy. MEDICATIONS: As reviewed and is as per the H and P and the reconciliation list. FAMILY HISTORY: Significant for mother with cancer of stomach and liver. Father with coronary arter y disease. SOCIAL HISTORY: Currently , lives alone. Quit smoking in 2013, smoked 1-2 cigars per week. No alcohol, no drugs. REVIEW OF SYSTEMS: Unable to obtain as the patient seems very weak, confused, and not really in a po sition to give me any history. PHYSICAL EXAMINATION: GENERAL: The patient is an elderly white male, who appears to be very frail and weak at this time. He was very sleepy and somewhat confused and could not even keep his eyes open for a long time. VITAL SIGNS: Appears good with blood pressure of 148/77, pulse rate 70, temperature 36.3, 97% on calos m air. HEENT: Mucous membrane is moist. NECK: Supple. No jugular venous distention. CHEST: Bilaterally clear to auscultation. CARDIOVASCULAR: S1 and S2, regular. ABDOMEN: Soft, nontender. EXTREMITIES: Show no edema. LABORATORY TEST: At baseline, he has completely normal creatinine of 0.7. On admission, he had a BU N of 103, creatinine of 8.25. This morning, it has improved dramatically and is now down to creatini ne of 3.56 and a BUN of 71. Sodium is slightly high at 148, magnesium is 2.4. WBC count is 5000, he moglobin 11.6, platelet count 246. CT abdomen and pelvis showed mild bilateral hydroureteronephrosis to the level of the ureterovesical junction. No stone causing obstruction identified. He did have left-sided nephrolithiasis with mild bladder wall thickening as well as a 1 cm nodule along the right bladder wall concerning for urothel ial malignancy. ASSESSMENT AND PLAN: An 86-year-old male with normal baseline kidney function, now admitted with wea kness, confusion, frequent falls, and was found to have severe acute renal failure caused by bladder outlet obstruction. Acute renal failure, creatinine was as high as 8 with a BUN of more than 100. F ortunately, as soon as the Baldwin catheter was placed, he has had dramatic improvement overnight and i s already much better with very good urine output. Creatinine is down to 3.26 and at this rate, I ex pect the kidney function to be completely within the next day or two. He is at risk of having some p ostobstructive diuresis with some electrolyte imbalance. He is already having high sodium and high c hloride and given this, I would like to stop the normal saline. We will use D5 water with 30 mEq of potassium chloride and continue that at 100 mL per hour at least for 1 day. He appears to be quite c onfused and I do not know how much oral intake he is going to do. So given this, we may have to [place] nue fluid for the next 1-2 days. No further workup is needed as the etiology of acute renal failure has already been established. I will continue to follow the patient. Reviewed urology note in court [facility] and appreciate their input. Thank you very much for the consult. Job ID: [id number]
[2022-02-01] MEDS: HEPARIN SOD 5,000 UNIT/0.5 ML VIAL SQ SCH ×3 (06:17→21:00)
[2022-02-01 07:21] LABS: Hematocrit (blood only) 32.4 % (40.1-51.0); Hemoglobin 10.9 g/dl (14.0-18.0); Mean Corpuscular Hemoglobin 27.5 pg (25.0-34.0); Mean Corpuscular Hgb Conc 33.6 g/dL (32.0-36.0); Mean Corpuscular Volume 81.6 fL (80.0-100.0); Mean Platelet Volume 11.1 fL (9.4-12.4); Platelet Count 224 K/uL (130-400); RDW Coefficient of Variation 13.3 % (11.5-14.5); RDW Standard Deviation 39.6 fL (36.4-46.3); Red Blood Count 3.97 M/uL (4.63-6.08); White Blood Count 5.82 K/ul (4.8-10.8)
[2022-02-01] MEDS: POTASSIUM CHLORIDE 30 MEQ in DEXTROSE 5% 1,000 ML IV SCH (07:53)
[2022-02-01] MEDS: ASPIRIN 81 MG ECTAB PO SCH (07:53)
[2022-02-01] MEDS: ROSUVASTATIN CALCIUM 10 MG TAB PO SCH (07:53)
[2022-02-01] MEDS: CHOLECALCIFEROL 1,000 UNITS 25 MCG TAB PO SCH (07:54)
[2022-02-01] MEDS: MIRABEGRON ER 25 MG TAB PO SCH (07:54)
[2022-02-01 08:01] LABS: Calcium 8.2 mg/dl (8.5-10.1); Est GFR (African American) 66.7 ml/min; Est GFR (Non-African American) 57.5 ml/min; Potassium 3.8 mmol/L (3.5-5.1)
--- NOTE | 2022-02-01 09:40 | Nephrology Progress Note ---
Date of Service February 01, 2022 Assessment & Plan Admission and Anticipated Discharge Date Admission Date: January 30, 2022 Subjective S--Lot of urine. Labs really better. PHYSICAL EXAMINATION: GENERAL: The patient is an elderly white male, who appears to be very frail and weak at this time. He was very sleepy and somewhat confused and could not even keep his eyes open for a long time. HEENT: Mucous membrane is moist. NECK: Supple. No jugular venous distention. CHEST: Bilaterally clear to auscultation. CARDIOVASCULAR: S1 and S2, regular. ABDOMEN: Soft, nontender. EXTREMITIES: Show no edema. LABORATORY TEST: Creat normal today CT abdomen and pelvis showed mild bilateral hydroureteronephrosis to the level of the ureterovesical junction. No stone causing obstruction identified. He did have left-sided nephrolithiasis with mild bladder wall thickening as well as a 1 cm nodule along the right bladder wall concerning for urothelial malignancy. ASSESSMENT AND PLAN: An 86-year-old male with normal baseline kidney function, now admitted with weakness, confusion, frequent falls, and was found to have severe acute renal failure caused by bladder outlet obstruction. Acute renal failure, creatinine was as high as 8 with a BUN of more than 100. Fortunately, as soon as the Ponce catheter was placed, he has had dramatic improvement overnight and is already much better with very good urine output. Creatinine is down to normal very quick.3 Rec: 1. Stop d5w. change to 1/2 NS at 75/hr 2 Now Stable from nephrology. 3 Reviewed urology note in detail and appreciate their input. 4 may have to discharge with Indwelling ponce till seen by urology. Results & Data ([facility]) Vital Signs (Past 12 Hours) Vital Signs Temp Pulse Pulse Resp BP Pulse Ox O2 Del Method 02/01/22 06:34 36.6 C 80 18 135/78 95 Room Air 02/01/22 03:22 36.6 C 68 18 132/67 98 Room Air 01/31/22 23:00 64 01/31/22 22:43 36.5 C 68 18 133/65 97
[2022-02-01] MEDS: SODIUM CHLORIDE 0.45 % 1,000 ML IV SCH (13:23)
[2022-02-01] MEDS: TAMSULOSIN HCL 0.4 MG CAP PO SCH (20:12)
[2022-02-01] MEDS: CEROVITE ADV FORMULA TAB PO SCH (20:12)
--- NOTE | 2022-02-01 23:17 | Hospitalist Progress Note ---
Date of Service February 01, 2022 Assessment & Plan (1) Acute renal failure: (2) Weakness: (3) Falls frequently: Plan: Present on admission with weakness, fall dizziness and urinary incontinence MARÍA CT abd/pelvis showed mild bilateral hydroureteronephrosis to the level of the ureterovesical junctions. Mild bladder wall thickening. 1 cm nodule along the right bladder wall. Creatinine on admission 8.3 Received IV fluid. Creatinine improved to 1.1 today Continue to avoid nephrotoxic agent Continue monitor BMP Bilateral hydroureteronephrosis Urology on board Recommend to maintain Baldwin catheter for nw Urology Will arrange for outpatient voiding trial. BPH Continue Flomax Bladder lesion Will need outpatient follow-up with urology for possible cystoscopy Hyperlipidemia: Continue statin. Hypertension. Continue monitor BP Deep venous thrombosis prophylaxis Heparin subcutaneously. Admission and Anticipated Discharge Date Admission Date: January 30, 2022 Subjective Pt was seen and examined for follow up of MARÍA and weakness Lying in bed with no acute distress Pt said that he feels alot better Denies any chest pain, palpitation, dizziness and SOB Review of Systems Review of Systems: All systems reviewed & are unremarkable except as noted in Subjective Physical Exam Physical Exam: General- No acute distress Head- atraumatic Eyes- PERRL, EOMI, ENT- oropharynx clear Neck- supple, no JVD Lungs- clear to auscultation Heart- regular rhythm; no murmur Abdomen- normal bowel sounds, soft, nontender Extremities- no calf tenderness Neuro- alert, oriented x 3; PERRL, EOMI; no facial palsy; no dysarthria Skin- warm & dry Results & Data Results & Data ([facility]) Vital Signs (Past 12 Hours) Vital Signs Temp Pulse Resp BP Pulse Ox O2 Del Method 02/01/22 22:58 36.6 C 88 18 136/82 94 Room Air 02/01/22 20:20 Room Air 02/01/22 18:57 36.6 C 66 18 166/91 H 97 Room Air 02/01/22 15:27 36.5 C 73 18 137/80 98 Room Air (1) Acute renal failure Acute renal failure type: unspecified Qualified Code(s): N17.9 - Acute kidney failure, unspecified
[2022-02-02] MEDS: SODIUM CHLORIDE 0.45 % 1,000 ML IV SCH (00:07)
[2022-02-02] MEDS: HEPARIN SOD 5,000 UNIT/0.5 ML VIAL SQ SCH ×3 (06:12→20:23)
[2022-02-02 07:01] LABS: Hematocrit (blood only) 33.3 % (40.1-51.0); Hemoglobin 11.3 g/dl (14.0-18.0); Mean Corpuscular Hemoglobin 28.1 pg (25.0-34.0); Mean Corpuscular Hgb Conc 33.9 g/dL (32.0-36.0); Mean Corpuscular Volume 82.8 fL (80.0-100.0); Mean Platelet Volume 10.9 fL (9.4-12.4); Platelet Count 236 K/uL (130-400); RDW Coefficient of Variation 13.3 % (11.5-14.5); Red Blood Count 4.02 M/uL (4.63-6.08); White Blood Count 5.37 K/ul (4.8-10.8)
[2022-02-02 07:14] LABS: BUN Creatinine Ratio 23.1 (10-20); Calcium 8.2 mg/dl (8.5-10.1); Creatinine Clr Calc Pharmacy 62.4 ml/min; Est GFR (African American) 96.1 ml/min; Est GFR (Non-African American) 82.9 ml/min; Potassium 3.5 mmol/L (3.5-5.1)
[2022-02-02] MEDS: ROSUVASTATIN CALCIUM 10 MG TAB PO SCH (08:37)
[2022-02-02] MEDS: MIRABEGRON ER 25 MG TAB PO SCH (08:37)
[2022-02-02] MEDS: CHOLECALCIFEROL 1,000 UNITS 25 MCG TAB PO SCH (08:37)
[2022-02-02] MEDS: ASPIRIN 81 MG ECTAB PO SCH (08:37)
[2022-02-02] MEDS: CEROVITE ADV FORMULA TAB PO SCH (20:23)
[2022-02-02] MEDS: TAMSULOSIN HCL 0.4 MG CAP PO SCH (20:23)
--- NOTE | 2022-02-02 21:39 | Hospitalist Progress Note ---
Date of Service February 02, 2022 Assessment & Plan (1) Acute renal failure: (2) Weakness: (3) Falls frequently: Plan: Present on admission with weakness, fall dizziness and urinary incontinence MARÍA CT abd/pelvis showed mild bilateral hydroureteronephrosis to the level of the ureterovesical junctions. Mild bladder wall thickening. 1 cm nodule along the right bladder wall. Creatinine on admission 8.3 Creatinine improved to 0.7 today IVF discontinued Continue to avoid nephrotoxic agent Continue monitor BMP Bilateral hydroureteronephrosis Urology on board Recommend to maintain Baldwin catheter for now Urology Will arrange for outpatient voiding trial. BPH Continue Flomax Bladder lesion Will need outpatient follow-up with urology for possible cystoscopy I notified Urology to reach out to daughter. Urology spoke to daughter over the phone and answered all her question and concerns Hyperlipidemia: Continue statin. Hypertension. Continue monitor BP Deep venous thrombosis prophylaxis Heparin subcutaneously. Admission and Anticipated Discharge Date Admission Date: January 30, 2022 Subjective Pt was seen and examined for follow up of MARÍA and weakness Sitting in chair with no acute distress watching TV Pt said that he feels alot better I spoke to his cousin Sara at bedside and Daughter over the phone in details and i answered all the questions I called her cousin Korina that would be helping with transportation, unfortunately no one answered Denies any chest pain, palpitation, dizziness and SOB Review of Systems Review of Systems: All systems reviewed & are unremarkable except as noted in Subjective Physical Exam Physical Exam: General- No acute distress Head- atraumatic Eyes- PERRL, EOMI, ENT- oropharynx clear Neck- supple, no JVD Lungs- clear to auscultation Heart- regular rhythm; no murmur Abdomen- normal bowel sounds, soft, nontender Extremities- no calf tenderness Neuro- alert, oriented x 3; PERRL, EOMI; no facial palsy; no dysarthria Skin- warm & dry Results & Data Results & Data ([facility]) Vital Signs (Past 12 Hours) Vital Signs Temp Pulse Pulse Resp BP BP Pulse Ox 02/02/22 20:40 02/02/22 19:17 36.8 C 81 18 127/80 97 02/02/22 15:00 102 H 02/02/22 15:49 36.8 C 93 H 18 133/85 96 02/02/22 11:52 36.6 C 71 16 146/89 H 97 O2 Del Method 02/02/22 20:40 Room Air 02/02/22 19:17 Room Air 02/02/22 15:00 02/02/22 15:49 Room Air 02/02/22 11:52 Room Air (1) Acute renal failure Acute renal failure type: unspecified Qualified Code(s): N17.9 - Acute kidney failure, unspecified
[2022-02-03] MEDS: HEPARIN SOD 5,000 UNIT/0.5 ML VIAL SQ SCH ×2 (06:06→13:18)
[2022-02-03] MEDS: ROSUVASTATIN CALCIUM 10 MG TAB PO SCH (08:53)
[2022-02-03] MEDS: MIRABEGRON ER 25 MG TAB PO SCH (08:53)
[2022-02-03] MEDS: ASPIRIN 81 MG ECTAB PO SCH (08:53)
[2022-02-03] MEDS: CHOLECALCIFEROL 1,000 UNITS 25 MCG TAB PO SCH (08:54)
[2022-02-03] MEDS ORDERED: bisacodyL 5 MG TABEC PO ONE (10:37)
--- NOTE | 2022-02-03 14:24 | Discharge Summary ---
Date of Service February 03, 2022 Admission HPI Per Admitting Provider CHIEF COMPLAINT: Frequent falls and weakness, some incontinence and found to have MARÍA and obstructive uropathy. 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 He states he ambulates without though he has walker at home,presents with because of freq uent falls, some incontinence of urine and some confusion. The patient is currently alert and oriented. Denies any other complaints. He says, he is he is emptying his bladder okay, but in the nighttime when he sleeps, he is getting incontinence of urine. Denies any pain or burning micturition. Denies any constipation or diarrhea. Denies any abdominal pain. No nausea or vomiting. Appetite is down. No difficulty swallowing. No chest pain, no shortness of breath, no cough, no fevers. Feeling cold. No headache, no blurred visions, no earache, no runny nose, no sore throat. Blood pressures were somewhat running high in the ER, afebrile, saturating okay on room air. His creatinine was 8.25, BUN was 103. Admission Exam Per Admitting Provider GENERAL: The patient is alert and oriented x3, not in acute distress. VITAL SIGNS: Temperature 36.4, pulse 105, respiratory rate 20, blood pressure 182/101, oxygen 100% on room air. HEENT: Pupils equal, round and reactive to light. Oral mucosa moist. NECK: No JVD, no neck masses. CARDIOVASCULAR: S1 and S2 heard. Tachycardia. No murmurs. RESPIRATORY SYSTEM: Normal AP diameter. No accessory muscle use. No wheezing, no crackles. ABDOMEN: Soft, bowel sounds present, nontender, no distention. CENTRAL NERVOUS SYSTEM: Alert and oriented x3. Speech is clear. No facial droop. Insight is okay. Obeys simple commands. Moves extremities. EXTREMITIES: No edema, no erythema seen. Principal Diagnosis Acute renal failure: Weakness: Falls frequently Bilateral hydroureteronephrosis Benign prostatic hyperplasia Bladder lesion Hyperlipidemia Hypertension. Discharge Exam General- No acute distress Head- atraumatic Eyes- PERRL, EOMI, ENT- oropharynx clear Neck- supple, no JVD Lungs- clear to auscultation Heart- regular rhythm; no murmur Abdomen- normal bowel sounds, soft, nontender Extremities- no calf tenderness Neuro- alert, oriented x 3; PERRL, EOMI; no facial palsy; no dysarthria Skin- warm & dry Discharge Data Allergies Allergy/AdvReac Type Severity Reaction Status Date / Time citalopram Allergy Unknown ON [facility] MED Verified 01/30/22 19:50 LIST pollen extracts Allergy Unknown ON [facility] MED Verified 01/30/22 19:50 LIST fluoxetine AdvReac Intermediate BAD PT Verified 01/30/22 19:50 REACTION infliximab [From Remicade] AdvReac Intermediate RIGORS & Verified 01/30/22 19:50 CHILLS Consultations 01/30/22 19:32 ED Decision to Admit Stat 01/31/22 08:00 Consult Nephrology Routine Consult Urology Routine Ordered Studies 01/30/22 17:53 CT cervical spine wo con Stat CT head/brain wo con Stat 01/30/22 18:05 CT abd pelvis wo con Stat Laboratory Results WBC 5.37 K/ul (4.8-10.8) 02/02/22 06:29 RBC 4.02 M/uL (4.63-6.08) L 02/02/22 06:29 Hgb 11.3 g/dl (14.0-18.0) L 02/02/22 06:29 Hct 33.3 % (40.1-51.0) L 02/02/22 06:29 MCV 82.8 fL (80.0-100.0) 02/02/22 06:29 MCH 28.1 pg (25.0-34.0) 02/02/22 06:29 MCHC 33.9 g/dL (32.0-36.0) 02/02/22 06:29 RDW Std Deviation 40.0 fL (36.4-46.3) 02/02/22 06:29 RDW Coeff of Daryl 13.3 % (11.5-14.5) 02/02/22 06:29 Plt Count 236 K/uL (130-400) 02/02/22 06:29 MPV 10.9 fL (9.4-12.4) 02/02/22 06:29 Immature Gran % (Auto) 0.3 % 01/31/22 05:25 Neut % (Auto) 60.3 % 01/31/22 05:25 Lymph % (Auto) 23.8 % 01/31/22 05:25 Lake % (Auto) 11.7 % 01/31/22 05:25 Eos % (Auto) 3.6 % 01/31/22 05:25 Baso % (Auto) 0.3 % 01/31/22 05:25 Neut # (Auto) 3.49 K/uL (1.4-6.5) 01/31/22 05:25 Lymph # (Auto) 1.38 K/uL (1.2-3.4) 01/31/22 05:25 Lake # (Auto) 0.68 K/uL (0.24-0.82) 01/31/22 05:25 Eos # (Auto) 0.21 K/uL (0-0.50) 01/31/22 05:25 Baso # (Auto) 0.02 K/uL (0-0.2) 01/31/22 05:25 Immature Gran # (Auto) 0.02 K/uL (0.00-0.02) 01/31/22 05:25 PT 11.6 Seconds (9.0-12.0) 01/30/22 18:02 INR 1.1 (0.9-1.1) 01/30/22 18:02 APTT 27.7 Seconds (21.0-31.0) 01/30/22 18:02 PTT Ratio 1.0 01/30/22 18:02 Sodium 140 mmol/L (136-145) 02/02/22 06:29 Potassium 3.5 mmol/L (3.5-5.1) 02/02/22 06:29 Chloride 106 mmol/L (98-107) 02/02/22 06:29 Carbon Dioxide 31 mmol/L (21-32) 02/02/22 06:29 Anion Gap 3 (3-11) 02/02/22 06:29 BUN 18 mg/dl (6-23) 02/02/22 06:29 Creatinine 0.78 mg/dl (0.6-1.4) D 02/02/22 06:29 Est Cr Clr Drug Dosing 62.4 ml/min 02/02/22 06:29 Est GFR ( Amer) 96.1 ml/min 02/02/22 06:29 Est GFR (Non-Af Amer) 82.9 ml/min 02/02/22 06:29 BUN/Creatinine Ratio 23.1 (10-20) H 02/02/22 06:29 Glucose 96 mg/dl (70-99(Fasting)) 02/02/22 06:29 Calcium 8.2 mg/dl (8.5-10.1) L 02/02/22 06:29 Magnesium 2.4 mg/dl (1.7-2.4) 01/31/22 05:25 Total Bilirubin 0.6 mg/dl (0.2-1.0) 01/30/22 16:45 AST 13 U/L (13-39) 01/30/22 16:45 ALT 17 U/L (7-52) 01/30/22 16:45 Alkaline Phosphatase 63 U/L (34-104) 01/30/22 16:45 Total Creatine Kinase 86 U/L (30-223) 01/30/22 16:45 Troponin I High Sens 11.8 pg/ml (0-20) 01/30/22 16:45 Total Protein 7.3 gm/dl (6.0-8.3) 01/30/22 16:45 Albumin 3.9 gm/dl (3.4-5.0) 01/30/22 16:45 Globulin 3.4 gm/dl (2.5-4.0) 01/30/22 16:45 Albumin/Globulin Ratio 1.1 (0.9-2) 01/30/22 16:45 Urine Color Yellow 01/30/22 18:49 Urine Appearance Clear (Clear) 01/30/22 18:49 Urine pH 5.0 (4.5-7.5) 01/30/22 18:49 Ur Specific Beeson 1.010 (1.000-1.030) 01/30/22 18:49 Urine Protein Negative (Negative) 01/30/22 18:49 Urine Glucose (UA) Negative (Negative) 01/30/22 18:49 Urine Ketones Negative (Negative) 01/30/22 18:49 Urine Blood 3+ (Negative) H 01/30/22 18:49 Urine Nitrite Negative (Negative) 01/30/22 18:49 Urine Bilirubin Negative (Negative) 01/30/22 18:49 Urine Urobilinogen Negative (Negative) 01/30/22 18:49 Ur Leukocyte Esterase Trace (Negative) H 01/30/22 18:49 Urine WBC (Auto) 1-5 /hpf (0-5) 01/30/22 18:49 Urine RBC (Auto) 5-10 /hpf (0-4) H 01/30/22 18:49 U Hyaline Cast (Auto) 1-5 /lpf (0-5) 01/30/22 18:49 U Epithel Cells (Auto) 0-5 /lpf (0-5) 01/30/22 18:49 Urine Bacteria (Auto) Negative (Negative) 01/30/22 18:49 SARS-CoV-2, RNA, NAAT NEGATIVE (NEGATIVE) 01/30/22 18:03 Impressions Chest X-Ray 01/30/22 17:45 XR chest 1V portable HISTORY: Shortness of breath. COMPARISON: Chest 10/26/2021. FINDINGS: The lungs are clear. The heart is normal in size. No pleural effusions. No pneumothorax. Old, healed right-sided rib fractures again noted. IMPRESSION: No acute process. ACT 112: Negative or not required by law. Electronically signed by: Sloan Daniel M.D. 01/30/2022 7:[address] 01/30/22 17:[address] DOSE: HISTORY: fall TECHNIQUE: Multiaxial CT images of the cervical spine were performed and reformatted in the sagittal and coronal plane without the use of contrast. A dose lowering technique was utilized adhering to the principles of ALARA. COMPARISON: Cervical spine CT 11/17/2021. FINDINGS: No fractures. No subluxation. Prevertebral soft tissues and the C1-C2 interval are intact. No pneumothorax. Moderate to severe degenerative disc disease again noted throughout the cervical spine. IMPRESSION: No fractures within the cervical spine. ACT 112: Negative or not required by law. Electronically signed by: Sloan Daniel M.D. 01/30/2022 7:[address] 01/30/22 17:[address] DOSE: HISTORY: fall TECHNIQUE: Multiaxial CT images of the head were performed without the use of intravenous contrast. Automated exposure control was utilized for this study. A dose lowering technique was utilized adhering to the principles of ALARA. Comparison: Head CT 11/17/2021. Findings: Old nasal bone fractures are again noted. The paranasal sinuses and mastoid air cells are clear. The calvarium and skull base are intact. There is no mass, hematoma, midline shift, acute infarct. White matter hypodensity is nonspecific but suggestive of microvascular ischemic change. The ventricles and sulci demonstrate mild age-related involutional changes. Impression: No acute intracranial abnormality. ACT 112: Negative or not required by law. Electronically signed by: Sloan Daniel M.D. 01/30/2022 7:27 PM Abdomen/Pelvis CT 01/30/22 18:[address] WITHOUT CONTRAST CT DOSE: 1295.60 mGy.cm HISTORY: renal failure TECHNIQUE: Multiaxial CT images of the abdomen and pelvis were performed without contrast. A dose lowering technique was utilized adhering to the principles of ALARA. COMPARISON STUDY: Abdomen and pelvis CT 06/14/2017. FINDINGS: The lung bases are clear. No pneumoperitoneum. No pneumatosis. No fractures within the visualized osseous structures. There is mild body wall edema. Streak artifact from the patient's overlapping right arm. The hypodense lesions within the liver seen on the prior study are not well evaluated due to the streak artifact. The gallbladder, spleen, adrenal glands, and pancreas appear within normal limits. No retroperitoneal lymphadenopathy. Ectatic abdominal aorta with moderate calcified plaque again noted. There is mild bilateral perinephric edema. There are few punctate stones within the lower pole the left kidney. No right renal calculi. There is a stable 1.7 cm hypodense lesion within the lower pole the right kidney. This favors a cyst. There is mild bilateral hydroureteronephrosis to the level of the ureterovesical junctions. No obstructing stones identified. There is bladder wall thickening. The bladder is decompressed by a Baldwin catheter. There is a 1 cm nodule within the right bladder wall image 325. The prostate gland remains enlarged. There are suboptimal evaluation for bowel pathology due to the lack of intravenous and oral contrast. However, there is no definite bowel wall thickening or obstruction. Colonic diverticulosis. No evidence for acute diverticulitis. Normal appendix. IMPRESSION: 1. Mild bilateral hydroureteronephrosis to the level of the ureterovesical junctions. No obstructing stones identified. 2. Left-sided nephrolithiasis. 3. Mild bladder wall thickening. This could be due to underdistention or chronic outlet obstruction from the enlarged prostate gland. Recommend correlation with urinalysis. . 4. There is a 1 cm nodule along the right bladder wall. This concerning for urothelial malignancy. Follow-up cystoscopy recommended for further evaluation. 5. Additional findings as described above. ACT 112: Negative or not required by law. Electronically signed by: Sloan Daniel M.D. 01/30/2022 7:40 PM Hospital Course (1) Acute renal failure: (2) Weakness: (3) Falls frequently: Present on admission with weakness, fall dizziness and urinary incontinence MARÍA CT abd/pelvis showed mild bilateral hydroureteronephrosis to the level of the ureterovesical junctions. Mild bladder wall thickening. 1 cm nodule along the right bladder wall. Creatinine on admission 8.3 Creatinine improved to 0.7 today IVF discontinued Continue to avoid nephrotoxic agent Continue monitor BMP Bilateral hydroureteronephrosis Urology on board Recommend to maintain Baldwin catheter for now Urology Will arrange for outpatient voiding trial. BPH Continue Flomax General Weakness Falls Continue physical and occupation therapy Fall precaution Bladder lesion Will need outpatient follow-up with urology for possible cystoscopy I notified Urology to reach out to daughter. Urology spoke to daughter over the phone and answered all her question and concerns Hyperlipidemia: Continue statin. Hypertension. Continue monitor BP Deep venous thrombosis prophylaxis Heparin subcutaneously. Total Time Total Time Spent Total Time Spent (In Minutes): 35 minutes Discharge Plan Discharge Items Patient Disposition: Transfer Inpatient Rehab Fac Reason For Visit: REF BY DOC Discharge Diagnosis: Acute renal failure: Weakness: Falls frequently Bilateral hydroureteronephrosis Benign prostatic hyperplasia Bladder lesion Hyperlipidemia Hypertension. Activity: Resume your previous activity Non-emergency contact: Primary Care Provider and Urologist Call non-emergency contact if: you have any medication questions, your symptoms worsen and your temperature is above 101 Follow-up/Referrals: Tommy Alvarez MD [Physician] - 02/28/22 3:20 pm Mauro Crane MD [Primary Care Provider] - Diet: Heart Healthy Addtl Attending Provider Instructions: Follow up with your primary care provider once discharge from [facility] Follow up with urology Dr. Alvarez on 02/28/22 @ 3:20 PM for the bladder lesion for possible cystoscopy and voiding trial Continue physical and occupational therapy Maintain Baldwin catheter on discharge as per urology ( Urology will arrange outpatient voiding trial) Fall precaution Seek medical attention if your symptoms worsening Pending Studies at Discharge: No Stand-Alone Forms: My [facility] Skilled Items Patient informed of condition?: Yes DNR: No Discharge Level of Care: Acute rehab Communicable Disease: No Discharge Prognosis: Stable Lines: None Urinary Catheter: Yes Medications and DC Order Prescriptions: New tamsulosin 0.4 mg Capsule 0.4 mg PO HS 30 Days Qty: 30 0RF bisacodyl [Dulcolax (bisacodyl)] 5 mg tablet,delayed release (DR/EC) 5 mg PO DAILY 30 Days Qty: 30 0RF Rx Instructions: please hold for diarrhea Continued [id number]-suy-YT-lycopen-lutein [Centrum Silver Men] 300-600-300 mcg tablet 1 tab PO HS aspirin [Adult Low Dose Aspirin] 81 mg tablet,delayed release (DR/EC) 81 mg PO DAILY cholecalciferol (vitamin D3) [Vitamin D3] 50 mcg (2,000 unit) Tablet 50 mcg PO DAILY Myrbetriq 50 mg Tablet Extended Release 24 Hr 50 mg PO DAILY (DME) [facility] See Rx Instructions .Route Qty: 1 0RF Rx Instructions: As directed rosuvastatin 10 mg Tablet 10 mg PO DAILY Discharge Orders: Discharge Order (Routine); Ordered 02/03/22 Ordered By: Anyi Sanchez Admission Data Admit Date/Time: 01/30/22 20:33 Attending Provider: Anyi Sanchez Admit Provider: Kenny Mayo Primary Care Provider: Mauro Crane Other Providers: Kenny Mayo ; Shanae Reese ; Tommy Alvarez ; Christian Michaud ; Jonathan Rivera ; Susan Wills ; Ronaldo Oakley ; Danya Rushing ; Alexandra Martinez ; Cornell Mittal ; Manny Tovar ; Jannette Peres ; Asa Doran ; Willian Cesar ; Marc Leroy ; [facility] Other Interventions: Discharge Summary Assessment (RN) Last Done: 02/03/22 12:19
== END 2022-02-03 15:00 | DRG 699 ==
LOC: ED 15:18 → SUATTDRO 20:33 → 2S 20:33

== ENCOUNTER 2022-03-19 09:44 | Observation (INO) ==
--- NOTE | 2022-03-15 09:29 | Anesthesiology Consultation ---
Date of Service March 15, 2022 Assessment & Plan (1) Encounter for pre-operative examination: Chart Review Chart Review: Acceptable Risk for Surgery and Patient NOT seen in Pre Admission Testing Consults Requested none History Surgery Operation Date: 03/19/22 13:25 Proposed Procedures p Transurethral Resection Prostate - Ronaldo Oakley DO Height/Weight Height: 5 ft 8 in Weight: 63.503 kg Allergies Allergy/AdvReac Type Severity Reaction Status Date / Time citalopram Allergy Unknown ON [facility] MED Verified 03/14/22 14:15 LIST pollen extracts Allergy Unknown ON [facility]G MED Verified 03/14/22 14:15 LIST fluoxetine AdvReac Intermediate BAD PT Verified 03/14/22 14:15 REACTION infliximab [From Remicade] AdvReac Intermediate RIGORS & Verified 03/14/22 14:15 CHILLS Medications Home Medications Medication Instructions Recorded Confirmed Last Taken aspirin 81 mg tablet,delayed 81 mg PO HS 04/01/18 03/14/22 05/30/20 release (Adult Low Dose Aspirin) esbuxhmm-opi-tytwa acid 300 1 tab PO HS 04/01/18 03/14/22 05/30/20 mcg-lycopene 600 mcg-lutein 300 mcg tablet (Centrum Silver Men) cholecalciferol (vitamin D3) 50 50 mcg PO HS 10/26/21 03/14/22 Unknown mcg (2,000 unit) tablet (Vitamin D3) mirabegron 50 mg tablet,extended 50 mg PO HS 10/26/21 03/14/22 Unknown release 24 hr (Myrbetriq) Wheeled Walker #1 ea 10/27/21 Unknown rosuvastatin 10 mg tablet 10 mg PO HS 01/30/22 03/14/22 Unknown ciprofloxacin HCl 500 mg tablet 500 mg PO Q12H 10 days #20 tabs 02/12/22 Unknown alendronate 70 mg tablet 70 mg PO WK 03/14/22 03/14/22 Unknown Past Medical History Medical History (Updated 03/15/22 @ 09:26 by Napoleon Terry MD) Acute renal failure pt unaware Acute UTI treated at [facility] ER and had the ponce catheter replaced due to a blockage and is treated with cipro 500mg BID for 10 days for a UTI. Alzheimer disease ASCVD (arteriosclerotic cardiovascular disease) Benign prostatic hyperplasia Coronary artery calcification pt unsure Falls frequently History of rib fracture 7-8 year ago, repaired surgically Hx of malignant neoplasm of skin Hyperlipidemia Hypertension pt denies Indwelling Ponce catheter present Obstructive uropathy Polyarthralgia Poor historian Rheumatoid arthritis of upper arm Tinnitus Past Family History Family History Mother Cancer Other No family history of adverse response to anesthesia No family history of bleeding disorder Past Surgical History Surgical History H/O hernia repair H/O of nasal cauterization History of bronchoscopy History of cataract surgery bilateral History of colonoscopy History of tonsillectomy Status post Mohs surgery Status post surgery rib fracture repair EBUS/bronch 07/01/2017: LMA #5. Social History Smoking Status: Never smoker Do You Dip or Chew Tobacco: No Hx Alcohol Use: No alcohol intake frequency: holidays/special occasions only Hx Substance Use: No Testing Laboratory Results Laboratory Tests 02/02/22 03/12/22 03/12/22 06:29 11:38 11:38 WBC 5.98 Hgb 12.1 L Hct 33.3 L 36.5 L Plt Count 233 Sodium 142 Potassium 3.5 Chloride 104 Carbon Dioxide 32 BUN 20 Creatinine 0.87 Glucose 78 Electrocardiogram Date: 01/30/22 DICTATED BY:Robbie Yanes MD Test Reason : Blood Pressure : / mmHG Vent. 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 COMPARISON: Chest 10/26/2021. FINDINGS: The lungs are clear. The heart is normal in size. No pleural effusions. No pneumothorax. Old, healed right-sided rib fractures again noted. IMPRESSION: No acute process.
[~2022-03-19 09:44] MED LIST changes: -ALEN1TAB PO; -ASPI-319 PO; -ATOR-24 PO; -CHOL20007 PO; -COEN100C15 PO; -DRY EYES OPB; -FERR27TA5 PO; -FLV1 PO; -LOSA50TA54 PO; +LR 15ML/HR IV SCH; -METH2.5T PO; -MISCTAB78 PO; -MULT-845 PO; -OPTIRAY 320 IV PRN; -RMCI IV; -TAMS0.4C38 PO; +ceFAZolin 2000MG 2,000 MG/15 ML SYR IV SCH
[2022-03-19] MEDS ORDERED: PHENAZOPYRIDINE HCL 200 MG TAB PO PRN (09:56)
[2022-03-19] MEDS ORDERED: ONDANSETRON INJ 2 MG/ML 2 ML VIAL IV PRN (09:56)
[2022-03-19] MEDS ORDERED: BELLADONNA/OPIUM SUPP 60 MG SUPP PR PRN (09:56)
[2022-03-19] MEDS ORDERED: MoRPHine SULFATE 2 MG/ML CARP IV PRN (09:56)
[2022-03-19] MEDS ORDERED: oxyCODONE/ACETAMINOPHEN 5mg/325mg TAB PO PRN (09:56)
--- NOTE | 2022-03-19 09:56 | History & Physical Bridge Note ---
Date of Service March 19, 2022 History & Physical Bridge Note I have examined the patient, reviewed the History & Physical and in the interval since the performance of the History & Physical I have noted the following changes of clinical significance: no changes noted
[2022-03-19] MEDS: SODIUM CHLORIDE 0.9% 1000ML 1,000 ML IV SCH ×2 (10:33→18:06)
[2022-03-19 10:54] LABS: Basophils # (auto) 0.02 K/uL (0-0.2); Basophils % (auto) 0.3 %; Eosinophils # (auto) 0.13 K/uL (0-0.50); Eosinophils % (auto) 2.1 %; Hematocrit (blood only) 34.9 % (40.1-51.0); Hemoglobin 12.1 g/dl (14.0-18.0); Immature Granulocytes # (auto) 0.01 K/uL (0.00-0.02); Immature Granulocytes % (auto) 0.2 %; Lymphocytes # (auto) 1.48 K/uL (1.2-3.4); Lymphocytes % (auto) 23.5 %; Mean Corpuscular Hemoglobin 28.3 pg (25.0-34.0); Mean Corpuscular Hgb Conc 34.7 g/dL (32.0-36.0); Mean Corpuscular Volume 81.7 fL (80.0-100.0); Mean Platelet Volume 10.2 fL (9.4-12.4); Monocytes # (auto) 0.52 K/uL (0.24-0.82); Monocytes % (auto) 8.3 %; Neutrophils # (auto) 4.14 K/uL (1.4-6.5); Neutrophils % (auto) 65.6 %; Platelet Count 270 K/uL (130-400); RDW Coefficient of Variation 16.4 % (11.5-14.5); RDW Standard Deviation 48.6 fL (36.4-46.3); Red Blood Count 4.27 M/uL (4.63-6.08)
[2022-03-19] MEDS ORDERED: HYDROmorphone INJ 2 MG/ML SYR/VIAL IV PRN (11:16)
[2022-03-19] MEDS ORDERED: ATROPINE SULFATE 0.1 MG/ML 10ML SYR IV PRN (11:16)
[2022-03-19] MEDS ORDERED: fentaNYL citrate 100 MCG/2 ML VIAL IV PRN (11:16)
[2022-03-19] MEDS ORDERED: ePHEDrine sulfate 50 MG/ML AMP IV PRN (11:16)
[2022-03-19 11:29] LABS: Albumin Globulin Ratio 1.3 (0.9-2); Albumin Level 3.5 gm/dl (3.4-5.0); BUN Creatinine Ratio 27.8 (10-20); Bilirubin,Total 0.7 mg/dl (0.2-1.0); Calcium 8.7 mg/dl (8.5-10.1); Creatinine Clr Calc Pharmacy 71.7 ml/min; Est GFR (African American) 98.6 ml/min; Est GFR (Non-African American) 85.1 ml/min; Globulin 2.7 gm/dl (2.5-4.0); Potassium 3.8 mmol/L (3.5-5.1); Total Protein 6.2 gm/dl (6.0-8.3)
[2022-03-19] MEDS ORDERED: ONDANSETRON INJ 2 MG/ML 2 ML VIAL ONE (11:34)
[2022-03-19] MEDS ORDERED: DEXAMETHASONE SOD INJ 4 MG/ML VIAL ONE (11:34)
[2022-03-19] MEDS ORDERED: LIDOCAINE 2% 20 MG/ML 5 ML SYR IV ONE (11:34)
[2022-03-19] MEDS ORDERED: PROPOFOL IV EMULSION 10 MG/ML 20 ML VIAL IV ONE (11:34)
[2022-03-19] MEDS ORDERED: ePHEDrine sulfate 50 MG/ML AMP ONE (12:02)
--- NOTE | 2022-03-19 12:38 | Operative Report ---
PG Post Operative Report Pre & Post Diagnosis Operation Date: 03/19/22 11:30 Pre-Op Diagnosis: Benign Prostate Hyperplasia Post-Op Diagnosis: Benign Prostate Hyperplasia I identified the patient and participated in the time-out.: Yes Procedure Operation Date: 03/19/22 11:30 Actual Procedures p Transurethral Resection of Prostate(Not Applicable) - Ronaldo Oakley DO Surgeon Ronaldo Oakley, II, DO Attorney General None Estimated Blood Loss 10 Findings Consistent with Post-Op Diagnosis Very Large Prostate with obstruction. No obvious mass or lesion within bladder. Specimens Prostate adenoma. Drains 24Fr [address] Catheter Anesthesia Type General Complications none Disposition Disposition: Recovery Room Indications Patient with obstruction due to prostate enlargement. Risks and benefits discussed at length. Description of Procedure Patient was consented and brought back to the operating room. Patient was placed under anesthesia in the supine position and moved to the dorsal lithotomy position. Patient was prepped and draped in the regular sterile fashion. A time out was completed. A 30degree Cystoscope was placed into the bladder and the entire bladder was examined. The UO's were identified as well as the bladder neck, trigone, dome, and the other important landmarks. The prostatic urethra and large lobes/adenoma was assessed and the veru and bladder neck identified and area/size was assessed. No masses or lesions were discovered. The resection scope was placed and the fine bipolar loop was selected. Starting at the 5 and 7 o'clock positions, a channel was created from bladder neck to the veru. With the channel created, resection was then taken along the lateral lobes starting at 1 and 11 o'clock and resected down to the posterior channel. These were taken down to the capsule fibers. A small amount of tissue was resected from the bladder neck and the anterior prostate. This cleared the obstruction. The Specimen was removed and sent for analysis. The resection bed and any bleeding areas were fulgurated/cauterized and the entire area inspected. All b leeding was controlled. The bladder was inspected a final time. The bladder was emptied and irrigated. All specimen and debris was removed. The scope was removed with the bladder partially full. A catheter was placed and balloon elevated. This was easily irrigated. The patient was cleaned, aroused from anesthesia, and transferred to the pacu in stable condition having tolerated the procedure well with no complications. I was present and participated in all aspects of the procedure. The patient will be monitored in the PACU until transferred. Will plan to monitor overnight with admission for observation. Will continue CBI and monitor over night. Plan for catheter for approx 10 days and followup for pathology. I attest to the content of the Intraoperative Record and any orders documented therein. Any exceptions are noted below.
--- NOTE | 2022-03-19 13:19 | Anesthesiology Progress Note ---
Date of Service March 19, 2022 Anesthesia Post Procedure Vital Signs Vital Signs: Temp Pulse Resp BP Pulse Ox O2 Del Method O2 Flow Rate 03/19/22 13:10 62 12 152/85 H 97 Room Air 03/19/22 13:00 63 18 162/95 H 100 Nasal Cannula 4 03/19/22 12:51 92 H 15 138/85 100 Nasal Cannula 4 03/19/22 12:41 36.1 C L 75 14 167/93 H 100 Nasal Cannula 4 03/19/22 10:17 36.5 C 74 18 177/91 H 98 Room Air Transfer of Care Handoff Completed per policy Notes Mental Status: alert / awake / arousable and participated in evaluation Patient Amnestic to Procedure: Yes Nausea / Vomiting: adequately controlled Pain: adequately controlled Airway Patency, RR, SpO2: stable & adequate BP & HR: stable & adequate Hydration State: stable & adequate Anesthetic Complications: no major complications apparent and Pt Satisfied with anesthetic care
--- NOTE | 2022-03-19 15:00 | Hospitalist Consultation ---
Date of Consultation March 19, 2022 Assessment & Plan (1) Benign prostatic hyperplasia: s/p TURP 03/19/22. 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 Oakley secondary to multiple episodes of inability to void patient is generally fairly healthy only taking aspirin rosuvastatin Myrbetriq and vitamins. In the postoperative state he is awake alert despite his dementia he was oriented x3 operative report shows obstruction with prostate enlargement but no obvious mass or lesion within the bladder. Allergies Allergy/AdvReac Type Severity Reaction Status Date / Time citalopram Allergy Unknown ON [facility] MED Verified 03/19/22 10:16 LIST pollen extracts Allergy Unknown ON [facility] MED Verified 03/19/22 10:16 LIST fluoxetine AdvReac Intermediate BAD PT Verified 03/19/22 10:16 REACTION infliximab [From Remicade] AdvReac Intermediate RIGORS & Verified 03/19/22 10:16 CHILLS Home Medications Medication Instructions Recorded Confirmed Type aspirin 81 mg tablet,delayed 81 mg PO HS 04/01/18 03/19/22 History release (Adult Low Dose Aspirin) srzpevpd-lia-ylejy acid 300 1 tab PO HS 04/01/18 03/19/22 History mcg-lycopene 600 mcg-lutein 300 mcg tablet (Centrum Silver Men) cholecalciferol (vitamin D3) 50 50 mcg PO HS 10/26/21 03/19/22 History mcg (2,000 unit) tablet (Vitamin D3) mirabegron 50 mg tablet,extended 50 mg PO HS 10/26/21 03/19/22 History release 24 hr (Myrbetriq) Wheeled Walker #1 ea 10/27/21 Rx rosuvastatin 10 mg tablet 10 mg PO HS 01/30/22 03/19/22 History ciprofloxacin HCl 500 mg tablet 500 mg PO Q12H 10 days #20 tabs 02/12/22 03/14/22 Rx alendronate 70 mg tablet (Fosamax) 70 mg PO WK 11/30/22 12/05/22 History Patient History Medical History (Updated 03/19/22 @ 14:56 by Asa Babin MD) Acute renal failure pt unaware Acute UTI treated at [facility] ER and had the ponce catheter replaced due to a blockage and is treated with cipro 500mg BID for 10 days for a UTI. Alzheimer disease ASCVD (arteriosclerotic cardiovascular disease) Benign prostatic hyperplasia Coronary artery calcification pt unsure Falls frequently History of rib fracture 7-8 year ago, repaired surgically Hx of malignant neoplasm of skin Hyperlipidemia Hypertension pt denies Indwelling Ponce catheter present Obstructive uropathy Polyarthralgia Poor historian Rheumatoid arthritis of upper arm Tinnitus Surgical History H/O hernia repair H/O of nasal cauterization History of bronchoscopy History of cataract surgery bilateral History of colonoscopy History of tonsillectomy Status post Mohs surgery Status post surgery rib fracture repair Family History Mother Cancer Other No family history of adverse response to anesthesia No family history of bleeding disorder Social History Smoking Status: Never smoker Second Hand Exposure: No; Do You Dip or Chew Tobacco: No; Tobacco Cessation Education Requested by Patient: No Hx Alcohol Use: No Hx Substance Use: No Preferred Language: Indonesian Communication Ability: Effective 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 Beliefs That Will Affect Care: None marital status: / Current Living Situation: Significant Other Current Living Situation Comment: condo current occupational status: retired Other Information That Helps Us Care for You: No Feels Safe at Home: Yes Safety Concerns: Feels Safe At This Time Assistive Devices: Cane, Glasses and Walker Review of Systems Review of Systems: Mild distress and fatigue no headache, no visual changes no speech or swallowing issues no chest pain, pressure or palpitations no shortness of breath, cough or wheezes no abdominal pain, nausea or vomiting, diarrhea or constipation Three-way Ponce catheter in with irrigation with a light pink-tinged urine no focal joint pain or swelling no back pain, CVA tenderness or radicular pain no bruising, bleeding or rashes no focal signs of weakness or numbness or altered sensation no complaints of anxiety or depression.. Physical Exam Physical Exam: The patient appeared well nourished and normally developed. Vital signs as documented. Head exam is normocephalic atraumatic Neck is without JVD, thyromegaly, or carotid bruits. Lungs are clear to auscultation, no focal loss of breath sounds Cardiac exam, Rhythm is regular.. No murmurs, rubs or gallops. Abdominal exam reveals normal bowel sounds, soft non tender, no masses Three-way irrigating Ponce in with like pink-tinged urine Extremities are nonedematous and both pedal pulses are present Neurologic exam is alert and oriented, no focal loss of strength or sensation Skin is without bruises or rashes Psychologically is without concerns for anxiety or depression.. Results & Data Results & Data ([facility]) Vital Signs (Past 12 Hours) Vital Signs Temp Pulse Resp BP Pulse Ox O2 Del Method O2 Flow Rate 03/19/22 14:30 71 20 137/73 96 Nasal Cannula 2 03/19/22 14:15 67 17 141/78 H 94 Nasal Cannula 2 03/19/22 14:00 68 20 142/78 H 95 Nasal Cannula 2 03/19/22 13:45 67 20 138/77 97 Nasal Cannula 2 03/19/22 13:30 99.3 F 65 20 150/82 H 95 Nasal Cannula 2 03/19/22 13:20 61 12 139/78 100 Nasal Cannula 2 03/19/22 13:10 62 12 152/85 H 97 Room Air 03/19/22 13:00 63 18 162/95 H 100 Nasal Cannula 4 03/19/22 12:51 92 H 15 138/85 100 Nasal Cannula 4 03/19/22 12:41 97.0 F L 75 14 167/93 H 100 Nasal Cannula 4 03/19/22 10:17 97.7 F 74 18 177/91 H 98 Room Air PG Care Time/CCT Total # of Minutes Spent Total Time Spent with Patient: Total time spent is greater than 50% in coordination of care (as documented) at patient's floor/unit and/or counseling patient: Coding Level of Care Code 65708 Inpt Consult Level 2 Diagnoses Benign prostatic hyperplasia N40.0 Hyperlipidemia E78.5 Alzheimer disease G30.9; F02.80
[2022-03-19] MEDS ORDERED: CHOLECALCIFEROL 1,000 UNITS 25 MCG TAB PO SCH (21:00)
[2022-03-19] MEDS ORDERED: ROSUVASTATIN CALCIUM 10 MG TAB PO SCH (21:00)
[2022-03-19] MEDS: DOCUSATE SODIUM 100 MG CAP PO SCH (21:38)
[2022-03-19] MEDS: ceFAZolin 2000MG 2,000 MG/15 ML SYR IV SCH (21:38)
[2022-03-20] MEDS: ceFAZolin 2000MG 2,000 MG/15 ML SYR IV SCH ×2 (04:32→11:33)
[2022-03-20] MEDS: SODIUM CHLORIDE 0.9% 1000ML 1,000 ML IV SCH (06:10)
--- NOTE | 2022-03-20 07:56 | Urology Progress Note ---
Date of Service March 20, 2022 Assessment & Plan (1) BPH NOS w ur obs/LUTS: (2) Acute urinary retention: Plan: - Pt POD#1 s/p TURP with Dr. Oakley - Doing well, progressing as expected - Afebrile, VSS, no issues with pain - Tolerating PO diet - 3 way Baldwin catheter intact, patent and draining clear urine with CBI open - CBI titrated down to slow during my interview, nursing aware - will reassess later this AM - Plan to titrate down and clamp CBI this AM and reassess - Maintain Baldwin catheter upon discharge with plan for removal in [address] Oakley - Anticipate home with Baldwin catheter later today presuming urine appropriate and he continues to progress as expected - Rx sent for Cephalexin 500 mg BID x 7 days - Expected clinical course reviewed, all questions answered - Will arrange outpatient follow-up with our service for voiding trial Patient was reassessed at 1100 - Baldwin was draining light pink with CBI on slow. CBI clamped during exam. Reassessed at 1200 - Baldwin was draining lugo red, which quickly cleared with CBI gently restarted. CBI clamped again. Patient was reassessed at [address] Rivera - Urine lugo red and again cleared quickly with gently restarting CBI. Discussed options for ongoing monitoring or discharge to home. Patient wished to be discharged. Orders placed for discharge to home with Baldwin catheter, all questions answered. Admission and Anticipated Discharge Date Admission Date: March 19, 2022 Subjective Patient seen and examined at bedside this morning. He is awake and resting in bed. at bedside. No acute issues overnight. Denies pain at present. Baldwin catheter intact and draining clear urine with CBI open. CBI slowed to moderate during my exam. No nausea or vomiting. No fever or chills. Review of Systems Constitutional: as per Subjective / HPI Gastrointestinal: as per Subjective / HPI Genitourinary: + as per Subjective / HPI Physical Exam Constitutional: well developed and well nourished; no acute distress Respiratory: normal respiratory effort; no respiratory distress and no labored breathing Gastrointestinal (Abdomen): Inspection/Auscultation: abdomen normal to inspection; abdomen not distended Psychiatric: Orientation: alert and oriented x 3 Genitourinary: Baldwin catheter intact and draining clear urine with CBI open. CBI slowed to moderate then slow during my exam. RN aware. Results & Data ([facility]) Vital Signs (Past 12 Hours) Vital Signs Temp Pulse Pulse Resp BP Pulse Ox O2 Del Method 03/20/22 07:28 60 03/20/22 00:22 36.5 C 76 18 117/75 95 Room Air 03/19/22 20:01 36.7 C 103 H 18 125/82 95 Room Air PG Care Time/CCT Total # of Minutes Spent Total Time Spent with Patient: Total time spent is greater than 50% in coordination of care (as documented) at patient's floor/unit and/or counseling patient: Coding Level of Care Code None Diagnoses BPH NOS w ur obs/LUTS N40.1 Acute urinary retention R33.8
[2022-03-20] MEDS: DOCUSATE SODIUM 100 MG CAP PO SCH (08:06)
--- NOTE | 2022-03-20 15:25 | Discharge Summary ---
Date of Service March 20, 2022 Admission HPI Per Admitting Provider Patient with obstruction due to prostate enlargement here for TURP. Risks and benefits discussed at length. Admission Exam Per Admitting Provider General: Alert in no acute distress. HEENT: Inspection normal Psychologic: Normal affect. Respiratory: Nonlabored. No use of accessory muscles. Skin: [place] and Dry. No rashes or visible lesions. Principal Diagnosis BPH with urinary obstruction/LUTS Discharge Exam Constitutional well developed and well nourished; no acute distress Respiratory normal respiratory effort; no respiratory distress and no labored breathing Gastrointestinal (Abdomen) Inspection/Auscultation: abdomen normal to inspection; abdomen not distended Psychiatric Orientation: alert and oriented x 3 Genitourinary Baldwin catheter intact and draining clear urine with CBI open. CBI slowed to moderate then slow during my exam. RN aware. Discharge Data Allergies Allergy/AdvReac Type Severity Reaction Status Date / Time citalopram Allergy Unknown ON [facility] MED Verified 03/19/22 10:16 LIST pollen extracts Allergy Unknown ON [facility] MED Verified 03/19/22 10:16 LIST fluoxetine AdvReac Intermediate BAD PT Verified 03/19/22 10:16 REACTION infliximab [From Remicade] AdvReac Intermediate RIGORS & Verified 03/19/22 10:16 CHILLS Consultations 03/19/22 09:56 Consult Hospitalist Routine Procedures Performed Operation Date: 03/19/22 11:30 Actual Procedures p Transurethral Resection Prostate, (Not Applicable) - Ronaldo Oakley DO s Cystoscopy(Not Applicable) - Ronaldo Oakley, Hospital Course (1) BPH NOS w ur obs/LUTS: (2) Acute urinary retention: - Pt POD#1 s/p TURP with Dr. Oakley - Doing well, progressing as expected - Afebrile, VSS, no issues with pain - Tolerating PO diet - 3 way Baldwin catheter intact, patent and draining clear urine with CBI open - CBI titrated down to slow during my interview, nursing aware - will reassess later this AM - Plan to titrate down and clamp CBI this AM and reassess - Maintain Baldwin catheter upon discharge with plan for removal in [address] Oakley - Anticipate home with Baldwin catheter later today presuming urine appropriate and he continues to progress as expected - Rx sent for Cephalexin 500 mg BID x 7 days - Expected clinical course reviewed, all questions answered - Will arrange outpatient follow-up with our service for voiding trial Patient was reassessed at 1100 - Baldwin was draining light pink with CBI on slow. CBI clamped during exam. Reassessed at 1200 - Baldwin was draining lugo red, which quickly cleared with CBI gently restarted. CBI clamped again. Patient was reassessed at [address] Rivera - Urine lugo red and again cleared quickly with gently restarting CBI. Discussed options for ongoing monitoring or discharge to home. Patient wished to be discharged. Orders placed for discharge to home with Baldwin catheter, all questions answered. Total Time Total Time Spent Total Time Spent (In Minutes): 29 Discharge Plan Discharge Items Patient Disposition: Home - Self-Care Reason For Visit: BPH WITH OBSTRUCTION Discharge Diagnosis: Same Activity: Resume your previous activity Lifting: No more than 25 pounds Bathing Comment: Okay to shower after discharge, no tub bath or soaking Exercise/Sports: Wait until after follow-up appointment Non-emergency contact: Surgeon and Urologist Call non-emergency contact if: you have any medication questions, your pain is worsening and you have a fever Follow-up/Referrals: Tavo Flaherty, [Primary Care Provider] - Diet: Regular Addtl Attending Provider Instructions: Please take all medications as prescribed and keep all follow-ups as scheduled. Please call our office at [phone] with any questions, concerns or need to reschedule appointments for any reason. We are happy to assist you. You can resume your aspirin in 2 days if urine remains clear to light pink. Tips for your recovery at home: Dont be alarmed by brownish or reddish blood or clots in your urine. This is a result of the procedure. This may occur off and on for weeks to months after the procedure but should continue to improve. Drink plenty of fluids during the day (enough to keep your urine very light colored). This will help keep a healthy flow of urine. Do not lift >25 lbs until your followup Avoid constipation. Please use a stool softener (Colace) for the first two weeks after your procedure Be sure to finish the antibiotics as prescribed. If you go home with a catheter, please wash tubing where it enters your body twice daily with mild soap (Dove or Dial). Once your catheter is removed, expect some blood in your urine and some burning when you urinate. You should have an appointment to have this removed, if you do not please call our office to arrange. Pending Studies at Discharge: Yes Studies:: pathology Stand-Alone Forms: [facility] Medications and DC Order Prescriptions: New cephalexin 500 mg capsule 500 mg PO BID 7 Days Qty: 14 0RF docusate sodium [Colace] 100 mg capsule 100 mg PO BID Qty: 60 0RF Rx Instructions: Take twice daily for 2 weeks, then as needed for constipation. Continued talzcpef-dum-MV-lycopen-lutein [Centrum Silver Men] 300-600-300 mcg tablet 1 tab PO HS aspirin [Adult Low Dose Aspirin] 81 mg tablet,delayed release (DR/EC) 81 mg PO HS cholecalciferol (vitamin D3) [Vitamin D3] 50 mcg (2,000 unit) Tablet 50 mcg PO HS Myrbetriq 50 mg Tablet Extended Release 24 Hr 50 mg PO HS (DME) [facility] [place], [place] See Rx Instructions .Route Qty: 1 0RF Rx Instructions: As directed rosuvastatin 10 mg Tablet 10 mg PO HS alendronate [Fosamax] 70 mg Tablet 70 mg PO WK Discontinued ciprofloxacin HCl 500 mg tablet 500 mg PO Q12H 10 Days Qty: 20 0RF Discharge Orders: Discharge Order (Routine); Ordered 03/20/22 Ordered By: Danya Rushing Admission Data Admit Date/Time: 03/19/22 09:56 Attending Provider: Ronaldo Oakley Admit Provider: Ronaldo Oakley Primary Care Provider: Tavo Flaherty. Other Providers: Michael Alfaro ; Susan Renae ; Anthony Whaley ; Rafi Solares ; Asa Babin ; Jose Gomez ; Kole Phelps ; Fani Olvera ; Polina Carballo ; Arvin Gaitan ; Kimi Willis ; Felipe Frank ; Gildardo Hercules ; Margarita Jennings ; Elizabeth Angulo ; Rosalie Alexandra ; Andrez [place] ; Lei Alvarenga ; Lacy Leone ; Susan Donovan ; Dmeond Al ; Alonzo Romano ; Anthony Fish ; Sabine Solo ; Chance Wallace ; Socratse Madden ; Day Foster ; Sivakumar Ring ; Luisa Montes ; Christian Ugalde ; Lazara Linder ; Georgi Kerns ; Rodri Barrios ; Nayely Poole ; Taurus Aguillon Other Interventions: Discharge Summary Assessment (RN) Last Done: 03/20/22 15:19 Coding Level of Care Code D/C DAY MANAGEMENT <30 MINS Diagnoses BPH NOS w ur obs/LUTS N40.1 Acute urinary retention R33.8
== END 2022-03-20 16:25 | disposition home or self-care (01) ==
LOC: PACUINP 09:44 → ASU 09:44 → 2W 17:24

== ENCOUNTER 2022-12-25 11:59 | Inpatient (IN) ==
[2022-12-25] MEDS ORDERED: SODIUM CHLORIDE 0.9% 500 ML IV SCH (12:45)
[2022-12-25] MEDS ORDERED: SODIUM CHLORIDE 0.9% 1,000 ML IV SCH (12:45)
[2022-12-25] MEDS ORDERED: ACETAMINOPHEN 1,000 MG/100 ML VIAL IV STA (12:46)
[2022-12-25 13:29] LABS: Basophils # (auto) 0.01 K/uL (0.00-0.20); Basophils % (auto) 0.1 %; Hematocrit (blood only) 45.4 % (42.0-52.0); Hemoglobin 15.3 g/dl (14.0-18.0); Immature Granulocytes # (auto) 0.01 K/uL (0.01-0.20); Immature Granulocytes % (auto) 0.1 %; Lymphocytes # (auto) 0.49 K/uL (1.20-3.40); Lymphocytes % (auto) 5.7 %; Mean Corpuscular Hemoglobin 27.2 pg (25.0-34.0); Mean Corpuscular Hgb Conc 33.7 g/dL (32.0-36.0); Mean Corpuscular Volume 80.6 fL (80.0-100.0); Mean Platelet Volume 10.9 fL (9.4-12.4); Monocytes # (auto) 0.52 K/uL (0.11-0.59); Monocytes % (auto) 6.1 %; Neutrophils # (auto) 7.51 K/uL (1.40-6.50); Platelet Count 186 K/uL (130-400); RDW Coefficient of Variation 15.6 % (11.5-14.5); RDW Standard Deviation 44.9 fL (36.4-46.3); Red Blood Count 5.63 M/uL (4.70-6.10); White Blood Count 8.54 K/ul (4.8-10.8)
[2022-12-25 13:32] LABS: Anion Gap 14 (3-11); Bilirubin,Total 0.8 mg/dl (0.2-1.0); Calcium 8.8 mg/dl (8.6-10.3); Carbon Dioxide 23 mmol/L (21-32); Chloride 101 mmol/L (98-107); Magnesium 2.3 mg/dl (1.7-2.4); Sodium 138 mmol/L (136-145)
[2022-12-25 13:38] LABS: Alanine Aminotransferase 47 U/L (7-52); Albumin Globulin Ratio 1.1 (0.9-2); Alkaline Phosphatase 52 U/L (34-104); Aspartate Aminotransferase 96 U/L (13-39); BUN Creatinine Ratio 27.6 (10-20); Blood Urea Nitrogen 24 mg/dl (6-23); Creatine Kinase 1562 U/L (30-223); Creatinine Clr Calc Pharmacy 60.1 ml/min; Est GFR (African American) 91.2 ml/min; Est GFR (Non-African American) 78.7 ml/min; Globulin 3.6 gm/dl (2.5-4.0); Glucose 90 mg/dl (70-99(Fasting)); Total Protein 7.6 gm/dl (6.0-8.3)
--- NOTE | 2022-12-25 13:40 | CT Scan Report ---
CT chest diagnostic wo con CT DOSE: HISTORY: fall, left rib pain, dehydration TECHNIQUE: Multiaxial CT images of the chest were performed without contrast. A dose lowering techni que was utilized adhering to the principles of ALARA. COMPARISON: Abdomen and pelvis CT 01/30/2022. Chest CT 11/19/2017. FINDINGS: No acute fractures within the chest. No pneumothorax. No pleural effusions. The central air ways are patent. Punctate calcified granuloma within the right upper lobe. There are linear and patch y densities within the lungs posteriorly. This favors dependent change/atelectasis. A superimposed pn eumonia is considered less likely but would be difficult to exclude. The abdominal structures will be reported on the same day abdomen and pelvis CT. Normal esophagus. Normal thyroid gland. Stable mildl y enlarged mediastinal lymph nodes. Dominant precarinal lymph node measures up to 12 mm in short axis diameter. The heart remains mildly enlarged. No pericardial effusion. There are moderate coronary ar marko calcifications noted. Borderline aneurysmal dilatation of the ascending thoracic aorta measuring up to 3.9 cm in diameter. There is mild calcified plaque within the thoracic aorta. No mediastinal h ematoma. IMPRESSION: 1. No acute traumatic process within the chest. 2. Mild mediastinal lymphadenopathy, unchanged. 3. Borderline aneurysmal dilatation of the ascending thoracic aorta measures up to 3.9 cm in diameter . 4. There are linear and patchy densities within the lungs posteriorly. This favors dependent change/a telectasis. A superimposed pneumonia is considered less likely but would be difficult to exclude. ACT 112: Negative or not required by law. Electronically signed by: Sloan Daniel M.D. 12/25/2022 1:39 PM
--- NOTE | 2022-12-25 13:40 | CT Scan Report ---
CT OF THE HEAD WITHOUT CONTRAST CLINICAL HISTORY: Fall. COMPARISON STUDY: MRI of the brain July 27, 2021. Head CT January 30, 2022. CT DOSE: 1680.21 mGy.cm TECHNIQUE: Helical axial images of the head were obtained without IV contrast. Automated exposure con trol was utilized for the study. A dose lowering technique was utilized adhering to the principles o f ALARA. FINDINGS: No acute intracranial hemorrhage, midline shift or mass effect is present. The ventricular system is unremarkable. The basal cisterns are patent. No extra-axial collections are present. There are no findings to suggest acute dural sinus thrombosis or acute territorial infarct. A left frontal scalp contusion is present. There is no acute calvarial fracture. There is mild ethmoid sinus mucosal thickening. Small air-fluid levels within the sinuses are present. IMPRESSION: 1. No acute intracranial findings. 2. Left frontal scalp contusion. No acute calvarial fracture. ACT 112: Negative or not required by law. Electronically signed by: Terrell Turk M.D. 12/25/2022 1:38 PM
[2022-12-25 13:43] LABS: Troponin I High Sensitivity 34.7 pg/ml (0-20)
--- NOTE | 2022-12-25 13:48 | CT Scan Report ---
CT OF THE ABDOMEN AND PELVIS WITHOUT CONTRAST CLINICAL HISTORY: generalized abd pain, fall, left flank pain COMPARISON STUDY: PETCT July 03, 2017. CT of the abdomen and pelvis January 30, 2022. TECHNIQUE: Axial images of the abdomen and pelvis were obtained without IV contrast. Images were revi ewed in the axial, sagittal, and coronal planes. Automated exposure control was utilized for the paola dy. A dose lowering technique was utilized adhering to the principles of ALARA. FINDINGS: Please note that the chest CT will be reported separately. No hemoperitoneum or pneumoperit oneum is present. Evaluation of the abdomen and pelvis is suboptimal on this unenhanced exam. There i s no evidence for traumatic injury to the liver, spleen, adrenal glands, kidneys or pancreas. Several small left renal calculi are present. There are no ureteral calculi. There is no hydronephrosis. Pro bable cyst within the lower pole of the right kidney. There is no evidence for a bowel obstruction. T here is no free fluid. No acute lumbar spine, pelvic or hip fracture is present. Moderate amount of s tool within the colon and rectum is present. IMPRESSION: 1. No acute traumatic findings within the abdomen or pelvis on unenhanced exam. 2. Left-sided nephrolithiasis. No ureteral calculi or hydronephrosis. 3. Moderate amount of stool within the rectum and colon. No bowel obstruction. ACT 112: Negative or not required by law. Electronically signed by: Terrell Turk M.D. 12/25/2022 1:47 PM
--- NOTE | 2022-12-25 13:50 | CT Scan Report ---
CT cervical spine wo con CLINICAL HISTORY: 87 years-old Male with fall. Acute neck injury status post fall COMPARISON: 01/30/2022 TECHNIQUE: Multiple axial CT images of the cervical spine were obtained without contrast. A dose low ering technique was utilized adhering to the principles of ALARA. FINDINGS: Multilevel degenerative changes without acute fracture or subluxation. The cervical soft tissues appear unremarkable. Secretions noted within the airway. The visualized taylor ng apices appear clear. IMPRESSION: No acute cervical spine fracture or subluxation. ACT 112: Negative or not required by law. The above report was generated using voice recognition software. It may contain grammatical, syntax o r spelling errors. Electronically signed by: Chet To M.D. 12/25/2022 1:48 PM
--- NOTE | 2022-12-25 14:25 | XRay Report ---
XR chest 1V portable CLINICAL HISTORY: weakness, fall COMPARISON STUDY: Chest radiograph January 30, 2022. Chest CT performed earlier today. FINDINGS: There is no pneumothorax or pleural effusion. There is no evidence for pulmonary edema. Kajal ear left basilar opacity favors atelectasis or scarring. Cardiomediastinal silhouette is stable. Old right-sided rib fractures are incidentally noted. IMPRESSION: No acute cardiopulmonary findings. ACT 112: Negative or not required by law. Electronically signed by: Terrell Turk M.D. 12/25/2022 2:24 PM
[2022-12-25 14:50] LABS: Adenovirus PCR Not Detected (NotDetected); Bordetella parapertussis PCR Not Detected (NotDetected); Bordetella pertussis PCR Not Detected (NotDetected); Chlamydia pneumoniae PCR Not Detected (NotDetected); Coronavirus 229E PCR Not Detected (NotDetected); Coronavirus HKU1 PCR Not Detected (NotDetected); Coronavirus NL63 PCR Not Detected (NotDetected); Coronavirus OC43PCR Not Detected (NotDetected); Human Metapneumovirus PCR Not Detected (NotDetected); Influenza A PCR Not Detected (NotDetected); Influenza B PCR Not Detected (NotDetected); Mycoplasma pneumoniae PCR Not Detected (NotDetected); Parainfluenza Virus 1 PCR Not Detected (NotDetected); Parainfluenza Virus 2 PCR Not Detected (NotDetected); Parainfluenza Virus 3 PCR Not Detected (NotDetected); Parainfluenza Virus 4 PCR Not Detected (NotDetected); Respiratory Syncytial VirusPCR Not Detected (NotDetected); Rhinovirus/Enterovirus PCR Not Detected (NotDetected)
[2022-12-25 14:53] LABS: Coronavirus CoV-2 (COVID19)PCR DETECTED (NotDetected)
--- NOTE | 2022-12-25 15:58 | Electrocardiogram Report ---
Test Reason : Blood Pressure : / mmHG Vent. 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
[2022-12-25] MEDS ORDERED: ONDANSETRON INJ 2 MG/ML 2 ML VIAL IV PRN (16:20)
[2022-12-25] MEDS ORDERED: POLYETHYLENE (MIRALAX) 17 GM PACK PO PRN (16:20)
--- NOTE | 2022-12-25 16:47 | Emergency Department Note ---
Impression & Plan COVID-19, Fall, Rhabdomyolysis, Acute dehydration ED Provider Note INFORMANT: Patient, family ED PROVIDER(S): Mauro Garcia MD CHIEF COMPLAINT: Fall PLAN: Disposition: Admitted Condition: Good Outpatient prescription management: none Referral: None MEDICAL DECISION MAKING: Patient presented because of a fall. Work-up was initiated. He underwent head CT, cervical spine, chest, abdomen, and pelvis CT imaging performed. No traumatic findings were noted. Radiology did note some atelectasis versus infiltrate in the lung. Bio fire testing revealed the presence of COVID-19. Patient had an unremarkable CBC and chemistry panel. He was found to have an elevated total CK and troponin. I suspect he has mild rhabdo from lying on the ground. Patient was hydrated. He was given Tylenol. He was borderline febrile. Chest x-ray was unremarkable further management will be necessary in the hospital. Consultation [facility] with the [facility]. Patient was evaluated in the ER and admitted for further management. Discussed with transformation manager After review of the information above and other included data, I feel the patient requires admission. Triage Nursing notes reviewed and agree them. Vital Signs: reviewed and remarkable for borderline fever Prior /Outside records reviewed: none Differential diagnosis: Infection, dehydration, metabolic abnormality, hypo/hyperglycemia, electrolyte disturbance, anemia, hypoxia, cardiac sources, intracerebral event, toxicologic, neurologic, as well as other pathologies. Diagnostics, as interpreted by me: ECG: Twelve-lead ECG was normal sinus rhythm at 80 bpm. Left axis deviation. Inferior Q waves. Cardiac Monitoring: Cardiac monitoring ordered by me: The patient was placed on continuous cardiac monitoring and observed. It revealed a normal sinus rhythm at 73 beats per minute without ectopy or evidence of dysrhythmia. Medical decision rules: none Imaging studies: CT scan and chest x-ray as above. HPI: The patient is a 87year old male who presents to the Emergency Room with complaints of a fall. This started a day or 2 ago and is unwitnessed. Family is present and states that he was seen 2 days ago but then he was not heard from. He was found today on the floor. Patient states that he fell because he was weak and could not get up. The patient also notes the following associated symptoms, generalized myalgias, cough, left flank pain. The patient has been given no medication for relieving factors. Current pain is rated as 6/10. Pt denies LOC, headache, fevers, chills, diaphoresis, visual changes, neck pain, chest pain, breathing difficulties, nausea, vomiting, abdominal pain, melena, he matochezia, urinary symptoms, numbness, lymphadenopathy, rash, or other complaints. PAST MEDICAL HISTORY: See Below, UTI, hyperlipidemia, hypertension PAST SURGICAL HISTORY: See Below, SOCIAL HISTORY: See Below, retired HOME MEDICATIONS: See Below ALLERGIES: See Below VITALS: See Below PHYSICAL EXAMINATION: GENERAL: Awake, alert, well-appearing, in no distress HENT: Normocephalic, atraumatic. Oropharynx unremarkable. EYES: Normal conjunctiva. Sclera non-icteric. NECK: Inspection normal. Non-tender. Supple. No nuchal rigidity. FROM. No masses. RESPIRATORY: Clear to auscultation. No wheezes. No rales. Normal respiratory effort. CARDIAC: Normal rate. Normal rhythm. No murmurs. No rubs. Extremities warm and well perfused. Pulses equal. No JVD. GI: Soft, non-distended. No tenderness to palpation. No rebound or guarding. No masses. RECTAL: Deferred. MUSCULOSKELETAL: Atraumatic. Chest examination reveals no tenderness. The back is symmetrical on inspection without obvious abnormality. There is no CVA tenderness to palpation. No joint edema. LOWER EXTREMITIES: Calves are equal size bilaterally and non-tender. No edema. No discoloration. NEURO: Normal sensorium. No sensory or motor deficits noted. SKIN: No rash or jaundice noted. Past Med/Surg History Medical History Acute renal failure Acute UTI Alzheimer disease ASCVD (arteriosclerotic cardiovascular disease) Benign prostatic hyperplasia Coronary artery calcification Falls frequently History of rib fracture Hx of malignant neoplasm of skin Hyperlipidemia Hypertension Indwelling Baldwin catheter present Obstructive uropathy Polyarthralgia Poor historian Rheumatoid arthritis of upper arm Tinnitus Surgical History H/O hernia repair H/O of nasal cauterization History of bronchoscopy History of cataract surgery History of colonoscopy History of tonsillectomy Status post Mohs surgery Status post surgery Family History Mother Cancer Other No family history of adverse response to anesthesia No family history of bleeding disorder Social History Smoking Status: Former smoker Tobacco Type: Cigarettes Second Hand Exposure: No; Do You Dip or Chew Tobacco: No; Hx Alcohol Use: No Hx Substance Use: No Preferred Language: Peruvian Communication Ability: Effective 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 Required: No Beliefs That Will Affect Care: None marital status: / Current Living Situation: Significant Other Current Living Situation Comment: condo current occupational status: retired Feels Safe at Home: Yes Assistive Devices: Cane, Glasses and Walker Allergies Allergies Allergy/AdvReac Type Severity Reaction Status Date / Time citalopram Allergy Unknown ON [facility] MED Verified 10/26/22 15:03 LIST pollen extracts Allergy Unknown ON [facility] MED Verified 10/26/22 15:03 LIST fluoxetine AdvReac Intermediate BAD PT Verified 10/26/22 15:03 REACTION infliximab [From Remicade] AdvReac Intermediate RIGORS & Verified 10/26/22 15:03 CHILLS Home Meds Home Medications Medication Instructions Recorded Confirmed aspirin 81 mg tablet,delayed 81 mg PO HS 04/01/18 10/26/22 release (Adult Low Dose Aspirin) [id number] 300 mcg-K 60 1 tab PO HS 04/01/18 10/26/22 mcg-lycop 600 mcg-lutein 300 mcg tablet (Centrum Silver Men) cholecalciferol (vitamin D3) 50 50 mcg PO HS 10/26/21 10/26/22 mcg (2,000 unit) tablet (Vitamin D3) mirabegron 50 mg tablet,extended 50 mg PO HS 10/26/21 10/26/22 release 24 hr (Myrbetriq) rosuvastatin 10 mg tablet 10 mg PO HS 01/30/22 10/26/22 alendronate 70 mg tablet (Fosamax) 70 mg PO WK 03/14/22 10/26/22 Previous Rx's Medication Instructions Recorded Wheeled Walker #1 ea 10/27/21 docusate sodium 100 mg capsule 100 mg PO BID #60 caps 03/20/22 (Colace) Results & Data (ED) Vital Signs Vital Signs - 24 hr 12/25/22 12:09 12/25/22 12:28 12/25/22 12:18 Temperature 37.7 C H Temperature Source Oral Pulse Rate 88 83 Pulse Rate [Apical] 72 Pulse Rhythm Regular Pulse Rhythm [Apical] Regular Pulse Strength Normal Pulse Strength [Apical] Normal Respiratory Rate 20 20 Respiratory Effort / Characteristics Non-Labored Spontaneous Non-Labored Spontaneous Respiratory Depth Normal Normal Respiratory Pattern Regular Regular Blood Pressure 152/88 H Blood Pressure [Right Arm] 158/84 H Blood Pressure Mean 109 Blood Pressure Mean [Right Arm] 108 Blood Pressure Position Lying Blood Pressure Position [Right Arm] Sitting Pulse Oximetry 94 94 Oxygen Delivery Method Room Air Room Air Sepsis Recent Fever Within 48 Hours No Sepsis New/Unexplained Change in Mental Status Yes Sepsis Action Taken by Nursing No Action Required 12/25/22 12:42 12/25/22 14:00 12/25/22 16:00 Temperature Temperature Source Pulse Rate 80 Pulse Rate [Apical] 78 73 Pulse Rhythm Regular Pulse Rhythm [Apical] Regular Regular Pulse Strength Pulse Strength [Apical] Normal Normal Respiratory Rate 18 20 18 Respiratory Effort / Characteristics Non-Labored Spontaneous Non-Labored Spontaneous Respiratory Depth Normal Normal Respiratory Pattern Regular Regular Blood Pressure Blood Pressure [Right Arm] 137/86 150/82 H Blood Pressure Mean Blood Pressure Mean [Right Arm] 103 104 Blood Pressure Position Blood Pressure Position [Right Arm] Lying Pulse Oximetry 94 94 96 Oxygen Delivery Method Room Air Room Air Room Air Sepsis Recent Fever Within 48 Hours Sepsis New/Unexplained Change in Mental Status Sepsis Action Taken by Nursing Laboratory Data 12/25/22 12:59 12/25/22 12:59 Lab Results 12/25/22 12/25/22 12/25/22 Range/Units 12:59 12:59 12:59 WBC 8.54 (4.8-10.8) K/ul RBC 5.63 (4.70-6.10) M/uL Hgb 15.3 (14.0-18.0) g/dl Hct 45.4 (42.0-52.0) % MCV 80.6 (80.0-100.0) fL MCH 27.2 (25.0-34.0) pg MCHC 33.7 (32.0-36.0) g/dL RDW Std Deviation 44.9 (36.4-46.3) fL RDW Coeff of Daryl 15.6 H (11.5-14.5) % Plt Count 186 (130-400) K/uL MPV 10.9 (9.4-12.4) fL Immature Gran % (Auto) 0.1 % Neut % (Auto) 88.0 % Lymph % (Auto) 5.7 % Polk % (Auto) 6.1 % Eos % (Auto) 0.0 % Baso % (Auto) 0.1 % Neut # (Auto) 7.51 H (1.40-6.50) K/uL Lymph # (Auto) 0.49 L (1.20-3.40) K/uL Polk # (Auto) 0.52 (0.11-0.59) K/uL Eos # (Auto) 0.00 (0.00-0.50) K/uL Baso # (Auto) 0.01 (0.00-0.20) K/uL Immature Gran # (Auto) 0.01 (0.01-0.20) K/uL Sodium 138 (136-145) mmol/L Potassium 4.0 (3.5-5.1) mmol/L Chloride 101 (98-107) mmol/L Carbon Dioxide 23 (21-32) mmol/L Anion Gap 14 H (3-11) BUN 24 H (6-23) mg/dl Creatinine 0.87 (0.6-1.4) mg/dl Est Cr Clr Drug Dosing 60.1 ml/min Est GFR ( Amer) 91.2 ml/min Est GFR (Non-Af Amer) 78.7 ml/min BUN/Creatinine Ratio 27.6 H (10-20) Glucose 90 (70-99(Fasting)) mg/dl Lactate 1.8 (0.4-2.0) mmol/L Calcium 8.8 (8.6-10.3) mg/dl Magnesium 2.3 (1.7-2.4) mg/dl Total Bilirubin 0.8 (0.2-1.0) mg/dl AST 96 H (13-39) U/L ALT 47 (7-52) U/L Alkaline Phosphatase 52 (34-104) U/L Total Creatine Kinase 1562 H (30-223) U/L Troponin I High Sens 34.7 H (0-20) pg/ml Total Protein 7.6 (6.0-8.3) gm/dl Albumin 4.0 (3.4-5.0) gm/dl Globulin 3.6 (2.5-4.0) gm/dl Albumin/Globulin Ratio 1.1 (0.9-2) TSH (0.300-4.500) uIu/ml Adenovirus (PCR) (NotDetected) B. pertussis DNA (PCR) (NotDetected) B.parapertussis DNA PCR (NotDetected) C. pneumoniae DNA (PCR) (NotDetected) Coronavirus OC43 (PCR) (NotDetected) Coronavirus HKU1 (PCR) (NotDetected) Coronavirus 229E (PCR) (NotDetected) SARS-CoV-2 (PCR) (NotDetected) Coronavirus NL63 (PCR) (NotDetected) Human Metapneumovir PCR (NotDetected) Influenza Type A (PCR) (NotDetected) Influenza Type B (PCR) (NotDetected) M. pneumoniae (PCR) (NotDetected) Parainfluenza 1 (PCR) (NotDetected) Parainfluenza 2 (PCR) (NotDetected) Parainfluenza 3 (PCR) (NotDetected) Parainfluenza 4 (PCR) (NotDetected) RSV (PCR) (NotDetected) Entero/Rhino (PCR) (NotDetected) 12/25/22 12/25/22 12/25/22 Range/Units 12:59 14:27 Unknown WBC (4.8-10.8) K/ul RBC (4.70-6.10) M/uL Hgb (14.0-18.0) g/dl Hct (42.0-52.0) % MCV (80.0-100.0) fL MCH (25.0-34.0) pg MCHC (32.0-36.0) g/dL RDW Std Deviation (36.4-46.3) fL RDW Coeff of Daryl (11.5-14.5) % Plt Count (130-400) K/uL MPV (9.4-12.4) fL Immature Gran % (Auto) % Neut % (Auto) % Lymph % (Auto) % Polk % (Auto) % Eos % (Auto) % Baso % (Auto) % Neut # (Auto) (1.40-6.50) K/uL Lymph # (Auto) (1.20-3.40) K/uL Polk # (Auto) (0.11-0.59) K/uL Eos # (Auto) (0.00-0.50) K/uL Baso # (Auto) (0.00-0.20) K/uL Immature Gran # (Auto) (0.01-0.20) K/uL Sodium (136-145) mmol/L Potassium (3.5-5.1) mmol/L Chloride (98-107) mmol/L Carbon Dioxide (21-32) mmol/L Anion Gap (3-11) BUN (6-23) mg/dl Creatinine (0.6-1.4) mg/dl Est Cr Clr Drug Dosing ml/min Est GFR ( Amer) ml/min Est GFR (Non-Af Amer) ml/min BUN/Creatinine Ratio (10-20) Glucose (70-99(Fasting)) mg/dl Lactate (0.4-2.0) mmol/L Calcium (8.6-10.3) mg/dl Magnesium (1.7-2.4) mg/dl Total Bilirubin (0.2-1.0) mg/dl AST (13-39) U/L ALT (7-52) U/L Alkaline Phosphatase (34-104) U/L Total Creatine Kinase (30-223) U/L Troponin I High Sens 33.8 H (0-20) pg/ml Total Protein (6.0-8.3) gm/dl Albumin (3.4-5.0) gm/dl Globulin (2.5-4.0) gm/dl Albumin/Globulin Ratio (0.9-2) TSH 0.914 (0.300-4.500) uIu/ml Adenovirus (PCR) Not Detected (NotDetected) B. pertussis DNA (PCR) Not Detected (NotDetected) B.parapertussis DNA PCR Not Detected (NotDetected) C. pneumoniae DNA (PCR) Not Detected (NotDetected) Coronavirus OC43 (PCR) Not Detected (NotDetected) Coronavirus HKU1 (PCR) Not Detected (NotDetected) Coronavirus 229E (PCR) Not Detected (NotDetected) SARS-CoV-2 (PCR) DETECTED A* (NotDetected) Coronavirus NL63 (PCR) Not Detected (NotDetected) Human Metapneumovir PCR Not Detected (NotDetected) Influenza Type A (PCR) Not Detected (NotDetected) Influenza Type B (PCR) Not Detected (NotDetected) M. pneumoniae (PCR) Not Detected (NotDetected) Parainfluenza 1 (PCR) Not Detected (NotDetected) Parainfluenza 2 (PCR) Not Detected (NotDetected) Parainfluenza 3 (PCR) Not Detected (NotDetected) Parainfluenza 4 (PCR) Not Detected (NotDetected) RSV (PCR) Not Detected (NotDetected) Entero/Rhino (PCR) Not Detected (NotDetected) Administered Medications Sodium Chloride (Nss) 1,000 mls @ 125 mls/hr IV .Q8H CHARLES Stop: 12/25/22 20:44 Last Admin: 12/25/22 14:54 Dose: 125 mls/hr Documented By: ODETTE Discontinued Medications Sodium Chloride (Nss) 500 mls @ 999 mls/hr IV .Q31M CHARLES Stop: 12/25/22 13:15 Last Infusion: 12/25/22 14:54 Dose: 0 mls/hr Documented By: Admin: 12/25/22 13:43 Dose: 999 mls/hr Documented By: ODETTE Acetaminophen (Ofirmev) 1,000 mg in 100 mls @ 400 mls/hr IV NOW STA Stop: 12/25/22 13:00 Last Infusion: 12/25/22 14:54 Dose: 0 mls/hr Documented By: Admin: 12/25/22 13:41 Dose: 400 mls/hr Documented By: ODETTE Imaging Data Radiologist's Impression: Abdomen/Pelvis CT 12/25/22 12:42 CT OF THE ABDOMEN AND PELVIS WITHOUT CONTRAST CLINICAL HISTORY: generalized abd pain, fall, left flank pain COMPARISON STUDY: PETCT July 03, 2017. CT of the abdomen and pelvis January 30, 2022. TECHNIQUE: Axial images of the abdomen and pelvis were obtained without IV contrast. Images were reviewed in the axial, sagittal, and coronal planes. Automated exposure control was utilized for the study. A dose lowering technique was utilized adhering to the principles of ALARA. FINDINGS: Please note that the chest CT will be reported separately. No hemoperitoneum or pneumoperitoneum is present. Evaluation of the abdomen and pelvis is suboptimal on this unenhanced exam. There is no evidence for traumatic injury to the liver, spleen, adrenal glands, kidneys or pancreas. Several small left renal calculi are present. There are no ureteral calculi. There is no hydronephrosis. Probable cyst within the lower pole of the right kidney. There is no evidence for a bowel obstruction. There is no free fluid. No acute lumbar spine, pelvic or hip fracture is present. Moderate amount of stool within the colon and rectum is present. IMPRESSION: 1. No acute traumatic findings within the abdomen or pelvis on unenhanced exam. 2. Left-sided nephrolithiasis. No ureteral calculi or hydronephrosis. 3. Moderate amount of stool within the rectum and colon. No bowel obstruction. ACT 112: Negative or not required by law. Electronically signed by: Terrell Turk M.D. 12/25/2022 1:[address] 12/25/22 12:42 CT cervical spine wo con CLINICAL HISTORY: 87 years-old Male with fall. Acute neck injury status post fall COMPARISON: 01/30/2022 TECHNIQUE: Multiple axial CT images of the cervical spine were obtained without contrast. A dose lowering technique was utilized adhering to the principles of ALARA. FINDINGS: Multilevel degenerative changes without acute fracture or subluxation. The cervical soft tissues appear unremarkable. Secretions noted within the airway. The visualized lung apices appear clear. IMPRESSION: No acute cervical spine fracture or subluxation. ACT 112: Negative or not required by law. The above report was generated using voice recognition software. It may contain grammatical, syntax or spelling errors. Electronically signed by: hCet To M.D. 12/25/2022 1:[address] 12/25/22 12:42 CT chest diagnostic wo con CT DOSE: HISTORY: fall, left rib pain, dehydration TECHNIQUE: Multiaxial CT images of the chest were performed without contrast. A dose lowering technique was utilized adhering to the principles of ALARA. COMPARISON: Abdomen and pelvis CT 01/30/2022. Chest CT 11/19/2017. FINDINGS: No acute fractures within the chest. No pneumothorax. No pleural effusions. The central airways are patent. Punctate calcified granuloma within the right upper lobe. There are linear and patchy densities within the lungs posteriorly. This favors dependent change/atelectasis. A superimposed pneumonia is considered less likely but would be difficult to exclude. The abdominal str uctures will be reported on the same day abdomen and pelvis CT. Normal esophagus. Normal thyroid gland. Stable mildly enlarged mediastinal lymph nodes. Dominant precarinal lymph node measures up to 12 mm in short axis diameter. The heart remains mildly enlarged. No pericardial effusion. There are moderate coronary artery calcifications noted. Borderline aneurysmal dilatation of the ascending thoracic aorta measuring up to 3.9 cm in diameter. There is mild calcified plaque within the thoracic aorta. No mediastinal hematoma. IMPRESSION: 1. No acute traumatic process within the chest. 2. Mild mediastinal lymphadenopathy, unchanged. 3. Borderline aneurysmal dilatation of the ascending thoracic aorta measures up to 3.9 cm in diameter. 4. There are linear and patchy densities within the lungs posteriorly. This favors dependent change/atelectasis. A superimposed pneumonia is considered less likely but would be difficult to exclude. ACT 112: Negative or not required by law. Electronically signed by: Sloan Daniel M.D. 12/25/2022 1:39 PM Chest X-Ray 12/25/22 12:42 XR chest 1V portable CLINICAL HISTORY: weakness, fall COMPARISON STUDY: Chest radiograph January 30, 2022. Chest CT performed earlier today. FINDINGS: There is no pneumothorax or pleural effusion. There is no evidence for pulmonary edema. Linear left basilar opacity favors atelectasis or scarring. Cardiomediastinal silhouette is stable. Old right-sided rib fractures are incidentally noted. IMPRESSION: No acute cardiopulmonary findings. ACT 112: Negative or not required by law. Electronically signed by: Terrell Turk M.D. 12/25/2022 2:[address] 12/25/22 12:42 CT OF THE HEAD WITHOUT CONTRAST CLINICAL HISTORY: Fall. COMPARISON STUDY: MRI of the brain July 27, 2021. Head CT January 30, 2022. CT DOSE: 1680.21 mGy.cm TECHNIQUE: Helical axial images of the head were obtained without IV contrast. Automated exposure control was utilized for the study. A dose lowering technique was utilized adhering to the principles of ALARA. FINDINGS: No acute intracranial hemorrhage, midline shift or mass effect is present. The ventricular system is unremarkable. The basal cisterns are patent. No extra-axial collections are present. There are no findings to suggest acute dural sinus thrombosis or acute territorial infarct. A left frontal scalp contusion is present. There is no acute calvarial fracture. There is mild ethmoid sinus mucosal thickening. Small air-fluid levels within the sinuses are present. IMPRESSION: 1. No acute intracranial findings. 2. Left frontal scalp contusion. No acute calvarial fracture. ACT 112: Negative or not required by law. Electronically signed by: Terrell Turk M.D. 12/25/2022 1:38 PM Discharge Plan Visit Data Chief Complaint: Fall ED Provider: Mauro Garcia Discharge Problem: COVID-19, Fall, Rhabdomyolysis, Acute dehydration Forms Stand Alone Forms: My [facility] Rebtel Prescriptions Prescriptions: No Action [id number] [Centrum Silver Men] 300-600-300 mcg tablet 1 tab PO HS aspirin [Adult Low Dose Aspirin] 81 mg tablet,delayed release (DR/EC) 81 mg PO HS cholecalciferol (vitamin D3) [Vitamin D3] 50 mcg (2,000 unit) Tablet 50 mcg PO HS Myrbetriq 50 mg Tablet Extended Release 24 Hr 50 mg PO HS (DME) Wheeled Walker Misc See Rx Instructions .Route Qty: 1 0RF Rx Instructions: As directed rosuvastatin 10 mg Tablet 10 mg PO HS alendronate [Fosamax] 70 mg Tablet 70 mg PO WK docusate sodium [Colace] 100 mg capsule 100 mg PO BID Qty: 60 0RF Rx Instructions: Take twice daily for 2 weeks, then as needed for constipation. Referrals Referrals: Tavo Flaherty DO [Primary Care Provider] -
[2022-12-25] MEDS ORDERED: BENZONATATE 100 MG CAPSULE PO PRN (19:03)
[2022-12-25] MEDS ORDERED: PIPERACILLIN/TAZOBACTAM 4.5 GM/100 ML BAG IV ONE (19:09)
[2022-12-25] MEDS ORDERED: TAZOBACTAM IV ONE (20:15)
[2022-12-25] MEDS ORDERED: PIPERACILLIN IV ONE (20:15)
[2022-12-25] MEDS ORDERED: SODIUM CHLORIDE 0.9% IV ONE (20:15)
[2022-12-25] MEDS ORDERED: DOCUSATE SODIUM 100 MG CAP PO SCH (21:00)
[2022-12-25] MEDS: CHOLECALCIFEROL 1,000 UNITS 25 MCG TAB PO SCH (21:39)
[2022-12-25] MEDS: guaiFENesin 600 MG TABCR PO SCH (21:39)
[2022-12-25] MEDS: DOCUSATE SODIUM 100 MG CAP PO SCH (21:40)
[2022-12-25] MEDS: ASPIRIN 81 MG ECTAB PO SCH (21:40)
[2022-12-25] MEDS: ROSUVASTATIN CALCIUM 10 MG TAB PO SCH (21:41)
[2022-12-25] MEDS ORDERED: ACETAMINOPHEN 325 MG TAB PO PRN (22:02)
[2022-12-25] MEDS: DOXYCYCLINE HYCLATE 100 MG in DEXTROSE 5% 100 ML IV SCH (22:38)
[2022-12-25] MEDS: SODIUM CHLORIDE 0.9% 1,000 ML IV SCH (22:38)
[2022-12-25 23:22] LABS: Appearance Urine Clear (Clear); Bacteria Urine Automated Negative (Negative); Bilirubin Urine Negative (Negative); Blood Urine Trace (Negative); Color Urine Dark Yellow; Epithelial Cell Urine Auto >30 /lpf (0-5); Glucose Urine UA Negative (Negative); Ketones Urine 3+ (Negative); Leukocyte Esterase Urine Negative (Negative); Nitrite Urine Negative (Negative); Protein Urine 1+ (Negative); Specific Gravity Urine 1.028 (1.000-1.030); Urobilinogen Urine Negative (Negative); pH Urine 5.5 (4.5-7.5)
[2022-12-26] MEDS: PIPERACILLIN/TAZOBACTAM 4.5 GM in DEXTROSE 5% MINI-B 100 ML IV SCH ×3 (03:45→23:57)
--- NOTE | 2022-12-26 03:54 | History & Physical Report ---
Date of Service December 25, 2022 Assessment & Plan (1) COVID-19: (2) Rhabdomyolysis: (3) Elevated troponin: (4) Hyperlipidemia: (5) Fall: (6) Alzheimer disease: (7) Rheumatoid arthritis: (8) Scalp contusion: (9) Constipation: Plan 86yoM with PMHx significant for RA, HLD, osteoporosis, age-related Alzheimer's disease admitted with a COVID infection after a fall and being found down on the ground for 2 days. COVID-19 infection Pneumonia Pt brought in after collapsing and being on the ground for 2 days. Notes URI symptoms for the past week. States was never vaccinated against covid. No increased oxygen requirement, oxygen saturations consistently 94% and above COVID + on testing, chest xray with no acute changes, chest CT unable to exclude pneumonia. Procal, CRP pending, Blood Cx x2 pending Given no increased oxygen requirement, remdesivir and decadron not indicated at this time. Started on Empiric Zosyn and doxycycline for possible pneumonia Supportive treatments otherwise Rhabdomyolysis Pt states he was down on the ground for 2 days CK elevated at 1562 IV fluids AM repeat CK level Elevated troponin Trops trended down from 34.7 to 33.8 EKG with NSR Scalp contusion Noted on CT head Pt states this is chronic due to multiple falls Constipation moderate amount of stool noted on CT abd/pelvis Ordered daily colace BID with prn miralax RA- continue home hydroxychloroquine, holding home daily Voltaren BID. 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 Will hold while hospitalized and supplement with PRN non-NSAID medication. Osteoporosis- on fosamax once a week Vit D def-continue home supplement Edema- continue home lasix HLD- continue home statin CODE STATUS: Full code Diet: regular DVT prophylaxis: Lovenox SQ History of Present Illness Chief Complaint: Fall Primary Care Provider: Tavo Flaherty, 86yoM with PMHx significant for RA, HLD, osteoporosis, age-related Alzheimer's disease admitted with a COVID infection after a fall and being found down on the ground for 2 days. History obtained from patient. Pt AAOx3. Pt brought in after collapsing and being on the ground for 2 days. He states that he has been having URI symptoms for the past week. States was never vaccinated against covid but thought his symptoms might be related. States he has a friend/caregiver who usually lives with him, but she has been gone to [place] for the past month and a half. Notes a Hx of recurrent falls and notes that he has a known scalp contusion. States that he has also fractured a clavicle in the past. Denies SOB or chest pain, abdominal pain, diarhea or constiaption. Allergies Allergy/AdvReac Type Severity Reaction Status Date / Time citalopram Allergy Unknown ON [facility] Verified 10/26/22 15:03 LIST pollen extracts Allergy Unknown ON [facility] Verified 10/26/22 15:03 LIST fluoxetine AdvReac Intermediate BAD PT Verified 10/26/22 15:03 REACTION infliximab [From Remicade] AdvReac Intermediate RIGORS & Verified 10/26/22 15:03 CHILLS Home Medications Medication Instructions Recorded Confirmed Type aspirin 81 mg tablet,delayed 81 mg PO HS 04/01/18 12/25/22 History release (Adult Low Dose Aspirin) [id number] 300 mcg-K 60 1 tab PO HS 04/01/18 12/25/22 History mcg-lycop 600 mcg-lutein 300 mcg tablet (Centrum Silver Men) cholecalciferol (vitamin D3) 50 50 mcg PO HS 10/26/21 12/25/22 History mcg (2,000 unit) tablet (Vitamin D3) rosuvastatin 10 mg tablet 10 mg PO HS 01/30/22 12/25/22 History alendronate 70 mg tablet (Fosamax) 70 mg PO WK 03/14/22 12/25/22 History diclofenac sodium 75 mg 75 mg PO BID 12/25/22 12/25/22 History tablet,delayed release docusate sodium 100 mg capsule 100 mg PO DAILY PRN Constipation 12/25/22 12/25/22 History (Colace) furosemide 20 mg tablet 20 mg PO DAILY 12/25/22 12/25/22 History hydroxychloroquine 200 mg tablet 200 mg PO DAILY 12/25/22 12/25/22 History Past Med/Surg History Medical History Acute renal failure pt unaware Acute UTI treated at [facility] ER and had the ponce catheter replaced due to a blockage and is treated with cipro 500mg BID for 10 days for a UTI. Alzheimer disease ASCVD (arteriosclerotic cardiovascular disease) Benign prostatic hyperplasia Coronary artery calcification pt unsure Falls frequently History of rib fracture 7-8 year ago, repaired surgically Hx of malignant neoplasm of skin Hyperlipidemia Hypertension pt denies Indwelling Ponce catheter present Obstructive uropathy Polyarthralgia Poor historian Rheumatoid arthritis of upper arm Tinnitus Surgical History H/O hernia repair H/O of nasal cauterization History of bronchoscopy History of cataract surgery bilateral History of colonoscopy History of tonsillectomy Status post Mohs surgery Status post surgery rib fracture repair Family History Mother Cancer Other No family history of adverse response to anesthesia No family history of bleeding disorder Social History Smoking Status: Former smoker Tobacco Type: Cigarettes Second Hand Exposure: No; Do You Dip or Chew Tobacco: No; Tobacco Cessation Education Requested by Patient: No Hx Alcohol Use: No Hx Substance Use: No Preferred Language: Welsh Communication Ability: Effective 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 No acute distress Skin: No noted rashes or bruises Psych: Appropriate mood and affect Neuro: some difficulty with movement HEENT: NC/AT CV: RRR, blowing murmur appreciated Resp: no increased effort of breathing. Abdomen: Soft, nontender Extremities: No edema in lower extremities bilaterally. Results & Data Results & Data Vital Signs (Past 12 Hours) Vital Signs Temp Pulse Pulse Resp BP BP Pulse Ox 12/25/22 16:00 73 18 150/82 H 96 12/25/22 14:00 78 20 137/86 94 12/25/22 12:42 80 18 94 12/25/22 12:18 83 12/25/22 12:28 72 20 158/84 H 94 12/25/22 12:09 37.7 C H 88 20 152/88 H 94 O2 Del Method 12/25/22 16:00 Room Air 12/25/22 14:00 Room Air 12/25/22 12:42 Room Air 12/25/22 12:18 12/25/22 12:28 Room Air 12/25/22 12:09 Room Air
[2022-12-26 08:11] LABS: C Reactive Protein 18.39 mg/dl (0-0.5)
[2022-12-26] MEDS: DOXYCYCLINE HYCLATE 100 MG in DEXTROSE 5% 100 ML IV SCH ×2 (08:35→21:41)
[2022-12-26] MEDS: ENOXAPARIN INJ 40 MG/0.4 ML SYR SQ SCH ×2 (08:35→08:44)
[2022-12-26] MEDS: FUROSEMIDE 20 MG TAB PO SCH (08:35)
[2022-12-26] MEDS: HYDROXYCHLOROQUINE SULFATE 200 MG TAB PO SCH (08:35)
[2022-12-26] MEDS: DOCUSATE SODIUM 100 MG CAP PO SCH ×2 (08:36→21:47)
[2022-12-26] MEDS: guaiFENesin 600 MG TABCR PO SCH ×2 (08:37→21:46)
[2022-12-26] MEDS: SODIUM CHLORIDE 0.9% 1,000 ML IV SCH ×2 (08:37→23:58)
--- NOTE | 2022-12-26 08:43 | Hospitalist Progress Note ---
Date of Service December 26, 2022 Assessment & Plan (1) COVID-19: (2) Rhabdomyolysis: (3) Elevated troponin: (4) Hyperlipidemia: (5) Fall: (6) Alzheimer disease: (7) Rheumatoid arthritis: (8) Scalp contusion: (9) Constipation: Plan 86yoM with PMHx significant for RA, HLD, osteoporosis, age-related Alzheimer's disease admitted with a COVID infection after a fall and being found down on the ground for 2 days. COVID-19 infection Pneumonia Pt brought in after collapsing and being on the ground for 2 days. Notes URI symptoms for the past week. States was never vaccinated against covid. No increased oxygen requirement, oxygen saturations consistently 94% and above COVID + on testing, chest xray with no acute changes, chest CT unable to exclude pneumonia. Procal negative, CRP 18, Blood Cx x2 pending Given no increased oxygen requirement, remdesivir and decadron not indicated at this time. Started on Empiric Zosyn and doxycycline for possible pneumonia Supportive treatments otherwise Rhabdomyolysis Pt states he was down on the ground for 2 days CK elevated at 1562, now downtrended IV fluids AM repeat CK level Elevated troponin Trops trended down from 34.7 to 33.8 EKG with NSR Scalp contusion Noted on CT head Pt states this is chronic due to multiple falls Constipation moderate amount of stool noted on CT abd/pelvis Ordered daily colace BID with prn miralax RA- continue home hydroxychloroquine, holding home daily Voltaren BID. 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 Will hold while hospitalized and supplement with PRN non-NSAID medication. Osteoporosis- on fosamax once a week Vit D def-continue home supplement Edema- continue home lasix HLD- continue home statin CODE STATUS: Full code Diet: regular DVT prophylaxis: Lovenox SQ Admission and Anticipated Discharge Date Admission Date: December 25, 2022 Subjective Pt seen in follow up of posit. for COVID 19, found on the ground being there for 2 days Currently laying in bed in NAD He is awake but appears confused, only able to answer some questions appropriately, per nursing staff he was confused previous night but then his mental status much improved throughout the day Confirmed with daughter over the phone - she also mentioned that pt was confused previously when hospitalized No chest pain, shortness of breath, abd. pain. He is breathing comfortably on RA Review of Systems Review of Systems: All systems reviewed & are unremarkable except as noted in Subjective Physical Exam Physical Exam: General: WD/WN M in NAD HEENT: NC/AT, EOMI, PERRL CV: RRR Resp: no increased effort of breathing, CTAB, no wheezing, rhonchi Abdomen: Soft, nontender, + bowel sounds Extremities: No edema in lower extremities bilaterally. Neuro: awake and alert but not oriented. Speech slow but fluent, only able to answer some questions appropriately, moves extremities but some difficulty with movement Skin: warm , dry Results & Data Results & Data Vital Signs (Past 12 Hours) Vital Signs Temp Pulse Pulse Resp BP BP Pulse Ox 12/26/22 03:46 36.6 C 75 18 129/62 94 12/25/22 22:02 73 12/26/22 00:30 36.8 C 12/25/22 22:52 38.2 C H 81 20 136/77 97 12/25/22 20:45 12/25/22 20:45 37.4 C 89 20 137/74 94 O2 Del Method 12/26/22 03:46 Room Air 12/25/22 22:02 12/26/22 00:30 12/25/22 22:52 Room Air 12/25/22 20:45 Room Air 12/25/22 20:45 Room Air Laboratory Results 12/26/22 12/26/22 12/25/22 Range/Units 06:44 06:44 Unknown WBC (4.8-10.8) K/ul RBC (4.70-6.10) M/uL Hgb (14.0-18.0) g/dl Hct (42.0-52.0) % MCV (80.0-100.0) fL MCH (25.0-34.0) pg MCHC (32.0-36.0) g/dL RDW Std Deviation (36.4-46.3) fL RDW Coeff of Daryl (11.5-14.5) % Plt Count (130-400) K/uL MPV (9.4-12.4) fL Immature Gran % (Auto) % Neut % (Auto) % Lymph % (Auto) % [place] % (Auto) % Eos % (Auto) % Baso % (Auto) % Neut # (Auto) (1.40-6.50) K/uL Lymph # (Auto) (1.20-3.40) K/uL [place] # (Auto) (0.11-0.59) K/uL Eos # (Auto) (0.00-0.50) K/uL Baso # (Auto) (0.00-0.20) K/uL Immature Gran # (Auto) (0.01-0.20) K/uL Sodium (136-145) mmol/L Potassium (3.5-5.1) mmol/L Chloride (98-107) mmol/L Carbon Dioxide (21-32) mmol/L Anion Gap (3-11) BUN (6-23) mg/dl Creatinine (0.6-1.4) mg/dl Est Cr Clr Drug Dosing ml/min Est GFR ( Amer) ml/min Est GFR (Non-Af Amer) ml/min BUN/Creatinine Ratio (10-20) Glucose (70-99(Fasting)) mg/dl Lactate (0.4-2.0) mmol/L Calcium (8.6-10.3) mg/dl Magnesium (1.7-2.4) mg/dl Total Bilirubin (0.2-1.0) mg/dl AST (13-39) U/L ALT (7-52) U/L Alkaline Phosphatase (34-104) U/L Total Creatine Kinase 703 H (30-223) U/L Troponin I High Sens (0-20) pg/ml C-Reactive Protein 18.39 H (0-0.5) mg/dl Total Protein (6.0-8.3) gm/dl Albumin (3.4-5.0) gm/dl Globulin (2.5-4.0) gm/dl Albumin/Globulin Ratio (0.9-2) Procalcitonin Pending TSH (0.300-4.500) uIu/ml Urine Color Urine Appearance (Clear) Urine pH (4.5-7.5) Ur Specific [place] (1.000-1.030) Urine Protein (Negative) Urine Glucose (UA) (Negative) Urine Ketones (Negative) Urine Blood (Negative) Urine Nitrite (Negative) Urine Bilirubin (Negative) Urine Urobilinogen (Negative) Ur Leukocyte Esterase (Negative) Urine WBC (Auto) (0-5) /hpf Urine RBC (Auto) (0-4) /hpf U Hyaline Cast (Auto) (0-5) /lpf U Epithel Cells (Auto) (0-5) /lpf Urine Bacteria (Auto) (Negative) Adenovirus (PCR) Not Detected (NotDetected) B. pertussis DNA (PCR) Not Detected (NotDetected) B.parapertussis DNA PCR Not Detected (NotDetected) C. pneumoniae DNA (PCR) Not Detected (NotDetected) Coronavirus OC43 (PCR) Not Detected (NotDetected) Coronavirus HKU1 (PCR) Not Detected (NotDetected) Coronavirus 229E (PCR) Not Detected (NotDetected) SARS-CoV-2 (PCR) DETECTED A* (NotDetected) Coronavirus NL63 (PCR) Not Detected (NotDetected) Human Metapneumovir PCR Not Detected (NotDetected) Influenza Type A (PCR) Not Detected (NotDetected) Influenza Type B (PCR) Not Detected (NotDetected) M. pneumoniae (PCR) Not Detected (NotDetected) Parainfluenza 1 (PCR) Not Detected (NotDetected) Parainfluenza 2 (PCR) Not Detected (NotDetected) Parainfluenza 3 (PCR) Not Detected (NotDetected) Parainfluenza 4 (PCR) Not Detected (NotDetected) RSV (PCR) Not Detected (NotDetected) Entero/Rhino (PCR) Not Detected (NotDetected) 12/25/22 12/25/22 12/25/22 Range/Units 23:00 14:27 12:59 WBC (4.8-10.8) K/ul RBC (4.70-6.10) M/uL Hgb (14.0-18.0) g/dl Hct (42.0-52.0) % MCV (80.0-100.0) fL MCH (25.0-34.0) pg MCHC (32.0-36.0) g/dL RDW Std Deviation (36.4-46.3) fL RDW Coeff of Daryl (11.5-14.5) % Plt Count (130-400) K/uL MPV (9.4-12.4) fL Immature Gran % (Auto) % Neut % (Auto) % Lymph % (Auto) % [place] % (Auto) % Eos % (Auto) % Baso % (Auto) % Neut # (Auto) (1.40-6.50) K/uL Lymph # (Auto) (1.20-3.40) K/uL [place] # (Auto) (0.11-0.59) K/uL Eos # (Auto) (0.00-0.50) K/uL Baso # (Auto) (0.00-0.20) K/uL Immature Gran # (Auto) (0.01-0.20) K/uL Sodium (136-145) mmol/L Potassium (3.5-5.1) mmol/L Chloride (98-107) mmol/L Carbon Dioxide (21-32) mmol/L Anion Gap (3-11) BUN (6-23) mg/dl Creatinine (0.6-1.4) mg/dl Est Cr Clr Drug Dosing ml/min Est GFR ( Amer) ml/min Est GFR (Non-Af Amer) ml/min BUN/Creatinine Ratio (10-20) Glucose (70-99(Fasting)) mg/dl Lactate (0.4-2.0) mmol/L Calcium (8.6-10.3) mg/dl Magnesium (1.7-2.4) mg/dl Total Bilirubin (0.2-1.0) mg/dl AST (13-39) U/L ALT (7-52) U/L Alkaline Phosphatase (34-104) U/L Total Creatine Kinase (30-223) U/L Troponin I High Sens 33.8 H (0-20) pg/ml C-Reactive Protein (0-0.5) mg/dl Total Protein (6.0-8.3) gm/dl Albumin (3.4-5.0) gm/dl Globulin (2.5-4.0) gm/dl Albumin/Globulin Ratio (0.9-2) Procalcitonin TSH 0.914 (0.300-4.500) uIu/ml Urine Color Dark Yellow Urine Appearance Clear (Clear) Urine pH 5.5 (4.5-7.5) Ur Specific [place] 1.028 (1.000-1.030) Urine Protein 1+ H (Negative) Urine Glucose (UA) Negative (Negative) Urine Ketones 3+ H (Negative) Urine Blood Trace H (Negative) Urine Nitrite Negative (Negative) Urine Bilirubin Negative (Negative) Urine Urobilinogen Negative (Negative) Ur Leukocyte Esterase Negative (Negative) Urine WBC (Auto) 1-5 (0-5) /hpf Urine RBC (Auto) 5-10 H (0-4) /hpf U Hyaline Cast (Auto) 1-5 (0-5) /lpf U Epithel Cells (Auto) >30 H (0-5) /lpf Urine Bacteria (Auto) Negative (Negative) Adenovirus (PCR) (NotDetected) B. pertussis DNA (PCR) (NotDetected) B.parapertussis DNA PCR (NotDetected) C. pneumoniae DNA (PCR) (NotDetected) Coronavirus OC43 (PCR) (NotDetected) Coronavirus HKU1 (PCR) (NotDetected) Coronavirus 229E (PCR) (NotDetected) SARS-CoV-2 (PCR) (NotDetected) Coronavirus NL63 (PCR) (NotDetected) Human Metapneumovir PCR (NotDetected) Influenza Type A (PCR) (NotDetected) Influenza Type B (PCR) (NotDetected) M. pneumoniae (PCR) (NotDetected) Parainfluenza 1 (PCR) (NotDetected) Parainfluenza 2 (PCR) (NotDetected) Parainfluenza 3 (PCR) (NotDetected) Parainfluenza 4 (PCR) (NotDetected) RSV (PCR) (NotDetected) Entero/Rhino (PCR) (NotDetected) 12/25/22 12/25/22 12/25/22 Range/Units 12:59 12:59 12:59 WBC 8.54 (4.8-10.8) K/ul RBC 5.63 (4.70-6.10) M/uL Hgb 15.3 (14.0-18.0) g/dl Hct 45.4 (42.0-52.0) % MCV 80.6 (80.0-100.0) fL MCH 27.2 (25.0-34.0) pg MCHC 33.7 (32.0-36.0) g/dL RDW Std Deviation 44.9 (36.4-46.3) fL RDW Coeff of Daryl 15.6 H (11.5-14.5) % Plt Count 186 (130-400) K/uL MPV 10.9 (9.4-12.4) fL Immature Gran % (Auto) 0.1 % Neut % (Auto) 88.0 % Lymph % (Auto) 5.7 % [place] % (Auto) 6.1 % Eos % (Auto) 0.0 % Baso % (Auto) 0.1 % Neut # (Auto) 7.51 H (1.40-6.50) K/uL Lymph # (Auto) 0.49 L (1.20-3.40) K/uL [place] # (Auto) 0.52 (0.11-0.59) K/uL Eos # (Auto) 0.00 (0.00-0.50) K/uL Baso # (Auto) 0.01 (0.00-0.20) K/uL Immature Gran # (Auto) 0.01 (0.01-0.20) K/uL Sodium 138 (136-145) mmol/L Potassium 4.0 (3.5-5.1) mmol/L Chloride 101 (98-107) mmol/L Carbon Dioxide 23 (21-32) mmol/L Anion Gap 14 H (3-11) BUN 24 H (6-23) mg/dl Creatinine 0.87 (0.6-1.4) mg/dl Est Cr Clr Drug Dosing 60.1 ml/min Est GFR ( Amer) 91.2 ml/min Est GFR (Non-Af Amer) 78.7 ml/min BUN/Creatinine Ratio 27.6 H (10-20) Glucose 90 (70-99(Fasting)) mg/dl Lactate 1.8 (0.4-2.0) mmol/L Calcium 8.8 (8.6-10.3) mg/dl Magnesium 2.3 (1.7-2.4) mg/dl Total Bilirubin 0.8 (0.2-1.0) mg/dl AST 96 H (13-39) U/L ALT 47 (7-52) U/L Alkaline Phosphatase 52 (34-104) U/L Total Creatine Kinase 1562 H (30-223) U/L Troponin I High Sens 34.7 H (0-20) pg/ml C-Reactive Protein (0-0.5) mg/dl Total Protein 7.6 (6.0-8.3) gm/dl Albumin 4.0 (3.4-5.0) gm/dl Globulin 3.6 (2.5-4.0) gm/dl Albumin/Globulin Ratio 1.1 (0.9-2) Procalcitonin TSH (0.300-4.500) uIu/ml Urine Color Urine Appearance (Clear) Urine pH (4.5-7.5) Ur Specific [place] (1.000-1.030) Urine Protein (Negative) Urine Glucose (UA) (Negative) Urine Ketones (Negative) Urine Blood (Negative) Urine Nitrite (Negative) Urine Bilirubin (Negative) Urine Urobilinogen (Negative) Ur Leukocyte Esterase (Negative) Urine WBC (Auto) (0-5) /hpf Urine RBC (Auto) (0-4) /hpf U Hyaline Cast (Auto) (0-5) /lpf U Epithel Cells (Auto) (0-5) /lpf Urine Bacteria (Auto) (Negative) Adenovirus (PCR) (NotDetected) B. pertussis DNA (PCR) (NotDetected) B.parapertussis DNA PCR (NotDetected) C. pneumoniae DNA (PCR) (NotDetected) Coronavirus OC43 (PCR) (NotDetected) Coronavirus HKU1 (PCR) (NotDetected) Coronavirus 229E (PCR) (NotDetected) SARS-CoV-2 (PCR) (NotDetected) Coronavirus NL63 (PCR) (NotDetected) Human Metapneumovir PCR (NotDetected) Influenza Type A (PCR) (NotDetected) Influenza Type B (PCR) (NotDetected) M. pneumoniae (PCR) (NotDetected) Parainfluenza 1 (PCR) (NotDetected) Parainfluenza 2 (PCR) (NotDetected) Parainfluenza 3 (PCR) (NotDetected) Parainfluenza 4 (PCR) (NotDetected) RSV (PCR) (NotDetected) Entero/Rhino (PCR) (NotDetected) Medications Administered Current Inpatient Medications Acetaminophen (Acetaminophen 325 Mg Tab) 650 mg PO Q6H PRN PRN Reason: Fever/Pain Stop: 01/24/23 22:01 Last Admin: 12/25/22 22:41 Dose: 650 mg Alendronate Sodium (Alendronate Sodium 70 Mg Tab) 70 mg PO Charlton@0700 CHARLES Stop: 01/29/23 06:59 Aspirin (Aspirin 81 Mg Ectab) 81 mg PO HS CHARLES Stop: 01/24/23 20:59 Last Admin: 12/25/22 21:40 Dose: 81 mg Benzonatate (Benzonatate 100 Mg Capsule) 100 mg PO TID PRN PRN Reason: Cough Stop: 01/24/23 19:02 Docusate Sodium (Docusate Sodium 100 Mg Cap) 100 mg PO BID CHARLES Stop: 01/24/23 20:59 Last Admin: 12/26/22 08:36 Dose: 100 mg Enoxaparin Sodium (Enoxaparin Inj 40 Mg/0.4 Ml Syr) 40 mg SQ Q24H CHALRES Stop: 01/25/23 07:59 Last Admin: 12/26/22 08:35 Dose: 40 mg Furosemide (Furosemide 20 Mg Tab) 20 mg PO DAILY CHARLES Stop: 01/25/23 08:59 Last Admin: 12/26/22 08:35 Dose: 20 mg Guaifenesin (Guaifenesin 600 Mg Tabcr) 600 mg PO Q12 CHARLES Stop: 01/24/23 20:59 Last Admin: 12/26/22 08:37 Dose: 600 mg Hydroxychloroquine Sulfate (Hydroxychloroquine Sulfate 200 Mg Tab) 200 mg PO DAILY CHARLES Stop: 01/25/23 08:59 Last Admin: 12/26/22 08:35 Dose: 200 mg Sodium Chloride (Nss) 1,000 mls @ 80 mls/hr IV .[id number] CHARLES Stop: 01/24/23 19:02 Last Admin: 12/26/22 08:37 Dose: 80 mls/hr Piperacillin Sod/Tazobactam (Sod 4.5 gm/ Dextrose) 100 mls @ 25 mls/hr IV Q8H CHARLES; Protocol Stop: 01/02/23 03:59 Last Infusion: 12/26/22 08:34 Dose: Infused Doxycycline Hyclate 100 mg/ (Dextrose) 110 mls @ 50 mls/hr IV Q12H CHARLES Stop: 01/01/23 19:29 Last Admin: 12/26/22 08:35 Dose: 50 mls/hr Ondansetron HCl (Ondansetron Inj 2 Mg/Ml 2 Ml Vial) 4 mg IV Q6H PRN PRN Reason: Nausea Stop: 01/24/23 16:19 Polyethylene Glycol (Polyethylene (Miralax) 17 Gm Pack) 17 gm PO DAILY PRN PRN Reason: Constipation Stop: 01/24/23 16:19 Rosuvastatin Calcium (Rosuvastatin Calcium 10 Mg Tab) 10 mg PO HS CHARLES Stop: 01/24/23 20:59 Last Admin: 12/25/22 21:41 Dose: 10 mg Vitamin D (Cholecalciferol 1,000 Units 25 Mcg Tab) 2,000 units PO HS CHARLES Stop: 01/24/23 20:59 Last Admin: 12/25/22 21:39 Dose: 2,000 units
[2022-12-26] MEDS: ROSUVASTATIN CALCIUM 10 MG TAB PO SCH (21:46)
[2022-12-26] MEDS: CHOLECALCIFEROL 1,000 UNITS 25 MCG TAB PO SCH (21:47)
[2022-12-26] MEDS: ASPIRIN 81 MG ECTAB PO SCH (21:47)
[2022-12-27] MEDS ORDERED: Nursing to Pharmacy Communication SCH (01:00)
[2022-12-27 07:39] LABS: Albumin Globulin Ratio 1.1 (0.9-2); Albumin Level 2.8 gm/dl (3.4-5.0); BUN Creatinine Ratio 26.9 (10-20); Bilirubin,Total 0.7 mg/dl (0.2-1.0); Calcium 7.2 mg/dl (8.6-10.3); Est GFR (African American) 95.4 ml/min; Est GFR (Non-African American) 82.3 ml/min; Globulin 2.6 gm/dl (2.5-4.0); Potassium 3.7 mmol/L (3.5-5.1); Total Protein 5.4 gm/dl (6.0-8.3)
[2022-12-27 07:44] LABS: Basophils # (auto) 0.01 K/uL (0.00-0.20); Basophils % (auto) 0.2 %; Eosinophils # (auto) 0.06 K/uL (0.00-0.50); Hematocrit (blood only) 34.9 % (42.0-52.0); Immature Granulocytes # (auto) 0.02 K/uL (0.01-0.20); Immature Granulocytes % (auto) 0.3 %; Lymphocytes # (auto) 0.95 K/uL (1.20-3.40); Lymphocytes % (auto) 16.3 %; Mean Corpuscular Hemoglobin 27.2 pg (25.0-34.0); Mean Corpuscular Hgb Conc 34.4 g/dL (32.0-36.0); Mean Corpuscular Volume 79.1 fL (80.0-100.0); Mean Platelet Volume 10.4 fL (9.4-12.4); Monocytes # (auto) 0.31 K/uL (0.11-0.59); Monocytes % (auto) 5.3 %; Neutrophils # (auto) 4.47 K/uL (1.40-6.50); Neutrophils % (auto) 76.9 %; Platelet Count 135 K/uL (130-400); RDW Coefficient of Variation 15.8 % (11.5-14.5); RDW Standard Deviation 45.1 fL (36.4-46.3); Red Blood Count 4.41 M/uL (4.70-6.10); White Blood Count 5.82 K/ul (4.8-10.8)
[2022-12-27] MEDS: FUROSEMIDE 20 MG TAB PO SCH (08:26)
[2022-12-27] MEDS: PIPERACILLIN/TAZOBACTAM 4.5 GM in DEXTROSE 5% MINI-B 100 ML IV SCH ×2 (08:27→16:13)
[2022-12-27] MEDS: DOXYCYCLINE HYCLATE 100 MG in DEXTROSE 5% 100 ML IV SCH ×2 (08:27→20:07)
[2022-12-27] MEDS: DOCUSATE SODIUM 100 MG CAP PO SCH ×2 (08:27→20:08)
[2022-12-27] MEDS: ENOXAPARIN INJ 40 MG/0.4 ML SYR SQ SCH (08:27)
[2022-12-27] MEDS: guaiFENesin 600 MG TABCR PO SCH ×2 (08:27→20:08)
[2022-12-27] MEDS: HYDROXYCHLOROQUINE SULFATE 200 MG TAB PO SCH (08:27)
[2022-12-27] MEDS: SODIUM CHLORIDE 0.9% 1,000 ML IV SCH (08:44)
--- NOTE | 2022-12-27 08:56 | Hospitalist Progress Note ---
Date of Service December 27, 2022 Assessment & Plan (1) COVID-19: (2) Rhabdomyolysis: (3) Elevated troponin: (4) Hyperlipidemia: (5) Fall: (6) Alzheimer disease: (7) Rheumatoid arthritis: (8) Scalp contusion: (9) Constipation: Plan 86yoM with PMHx significant for RA, HLD, osteoporosis, age-related Alzheimer's disease admitted with a COVID infection after a fall and being found down on the ground for 2 days. COVID-19 infection Pneumonia Pt brought in after collapsing and being on the ground for 2 days. Notes URI symptoms for the past week. States was never vaccinated against covid. No increased oxygen requirement, oxygen saturations consistently 94% and above COVID + on testing, chest xray with no acute changes, chest CT unable to exclude pneumonia. Procal negative, CRP 18, Blood Cx x2 pending Given no increased oxygen requirement, remdesivir and decadron not indicated at this time. Started on Empiric Zosyn and doxycycline for possible pneumonia Supportive treatments otherwise Rhabdomyolysis Pt states he was down on the ground for 2 days CK elevated at 1562, now downtrended IV fluids AM repeat CK level Elevated troponin Trops trended down from 34.7 to 33.8 EKG with NSR Scalp contusion Noted on CT head Pt states this is chronic due to multiple falls Constipation moderate amount of stool noted on CT abd/pelvis Ordered daily colace BID with prn miralax RA- continue home hydroxychloroquine, holding home daily Voltaren BID. 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 Will hold while hospitalized and supplement with PRN non-NSAID medication. Osteoporosis- on fosamax once a week Vit D def-continue home supplement Edema- continue home lasix HLD- continue home statin CODE STATUS: Full code Diet: regular DVT prophylaxis: Lovenox SQ Admission and Anticipated Discharge Date Admission Date: December 25, 2022 Subjective Pt seen in follow up of posit. for COVID 19, found on the ground being there for 2 days Currently laying in bed in NAD He is awake alert oriented and cooperative however he often asks the same question. PT in the room and reports weakness. Discussed with daughter over the phone yesterday - she also mentioned that pt was confused previously when hospitalized No chest pain, shortness of breath, abd. pain. He is breathing comfortably on RA Review of Systems Review of Systems: All systems reviewed & are unremarkable except as noted in Subjective Physical Exam Physical Exam: General: WD/WN M in NAD HEENT: NC/AT, EOMI, PERRL CV: RRR Resp: no increased effort of breathing, CTAB, no wheezing, rhonchi Abdomen: Soft, nontender, + bowel sounds Extremities: No edema in lower extremities bilaterally. Neuro: awake and alert, and answering simple questions appropriately. however he often asks the same questions. Speech slow but fluent, moves extremities but s ome difficulty with movement Skin: warm , dry Results & Data Results & Data Vital Signs (Past 12 Hours) Vital Signs Temp Pulse Pulse Resp BP Pulse Ox O2 Del Method 12/27/22 08:25 36.3 C L 58 L 16 164/89 H 97 Room Air 12/27/22 07:42 54 L 12/27/22 02:30 36.7 C 59 L 18 140/74 97 Room Air 12/27/22 01:52 78 12/26/22 23:37 Room Air 12/26/22 22:01 37.2 C 73 16 122/72 94 Room Air Laboratory Results 12/27/22 12/27/22 Range/Units 06:53 06:53 WBC 5.82 (4.8-10.8) K/ul RBC 4.41 L (4.70-6.10) M/uL Hgb 12.0 L D (14.0-18.0) g/dl Hct 34.9 L (42.0-52.0) % MCV 79.1 L (80.0-100.0) fL MCH 27.2 (25.0-34.0) pg MCHC 34.4 (32.0-36.0) g/dL RDW Std Deviation 45.1 (36.4-46.3) fL RDW Coeff of Daryl 15.8 H (11.5-14.5) % Plt Count 135 (130-400) K/uL MPV 10.4 (9.4-12.4) fL Immature Gran % (Auto) 0.3 % Neut % (Auto) 76.9 % Lymph % (Auto) 16.3 % Carson % (Auto) 5.3 % Eos % (Auto) 1.0 % Baso % (Auto) 0.2 % Neut # (Auto) 4.47 (1.40-6.50) K/uL Lymph # (Auto) 0.95 L (1.20-3.40) K/uL Carson # (Auto) 0.31 (0.11-0.59) K/uL Eos # (Auto) 0.06 (0.00-0.50) K/uL Baso # (Auto) 0.01 (0.00-0.20) K/uL Immature Gran # (Auto) 0.02 (0.01-0.20) K/uL Sodium 139 (136-145) mmol/L Potassium 3.7 (3.5-5.1) mmol/L Chloride 108 H (98-107) mmol/L Carbon Dioxide 26 (21-32) mmol/L Anion Gap 5 (3-11) BUN 21 (6-23) mg/dl Creatinine 0.78 (0.6-1.4) mg/dl Est Cr Clr Drug Dosing 67.0 ml/min Est GFR ( Amer) 95.4 ml/min Est GFR (Non-Af Amer) 82.3 ml/min BUN/Creatinine Ratio 26.9 H (10-20) Glucose 95 (70-99(Fasting)) mg/dl Calcium 7.2 L (8.6-10.3) mg/dl Phosphorus 2.0 L (2.5-4.9) mg/dl Magnesium 2.0 (1.7-2.4) mg/dl Total Bilirubin 0.7 (0.2-1.0) mg/dl AST 46 H (13-39) U/L ALT 28 (7-52) U/L Alkaline Phosphatase 35 (34-104) U/L Total Protein 5.4 L D (6.0-8.3) gm/dl Albumin 2.8 L (3.4-5.0) gm/dl Globulin 2.6 (2.5-4.0) gm/dl Albumin/Globulin Ratio 1.1 (0.9-2) Medications Administered Current Inpatient Medications Acetaminophen (Acetaminophen 325 Mg Tab) 650 mg PO Q6H PRN PRN Reason: Fever/Pain Stop: 01/24/23 22:01 Last Admin: 12/25/22 22:41 Dose: 650 mg Alendronate Sodium (Alendronate Sodium 70 Mg Tab) 70 mg PO Charlton@0700 [facility] Stop: 01/29/23 06:59 Aspirin (Aspirin 81 Mg Ectab) 81 mg PO HS [facility] Stop: 01/24/23 20:59 Last Admin: 12/26/22 21:47 Dose: 81 mg Benzonatate (Benzonatate 100 Mg Capsule) 100 mg PO TID PRN PRN Reason: Cough Stop: 01/24/23 19:02 Docusate Sodium (Docusate Sodium 100 Mg Cap) 100 mg PO BID [facility] Stop: 01/24/23 20:59 Last Admin: 12/27/22 08:27 Dose: 100 mg Enoxaparin Sodium (Enoxaparin Inj 40 Mg/0.4 Ml Syr) 40 mg SQ Q24H [facility] Stop: 01/25/23 07:59 Last Admin: 12/27/22 08:27 Dose: 40 mg Furosemide (Furosemide 20 Mg Tab) 20 mg PO DAILY [facility] Stop: 01/25/23 08:59 Last Admin: 12/27/22 08:26 Dose: 20 mg Guaifenesin (Guaifenesin 600 Mg Tabcr) 600 mg PO Q12 [facility] Stop: 01/24/23 20:59 Last Admin: 12/27/22 08:27 Dose: 600 mg Hydroxychloroquine Sulfate (Hydroxychloroquine Sulfate 200 Mg Tab) 200 mg PO DAILY [facility] Stop: 01/25/23 08:59 Last Admin: 12/27/22 08:27 Dose: 200 mg Piperacillin Sod/Tazobactam (Sod 4.5 gm/ Dextrose) 100 mls @ 25 mls/hr IV Q8H [facility]; Protocol Stop: 01/02/23 03:59 Last Admin: 12/27/22 08:27 Dose: 25 mls/hr Doxycycline Hyclate 100 mg/ (Dextrose) 110 mls @ 50 mls/hr IV Q12H [facility] Stop: 01/01/23 19:29 Last Admin: 12/27/22 08:27 Dose: 50 mls/hr Ondansetron HCl (Ondansetron Inj 2 Mg/Ml 2 Ml Vial) 4 mg IV Q6H PRN PRN Reason: Nausea Stop: 01/24/23 16:19 Polyethylene Glycol (Polyethylene (Miralax) 17 Gm Pack) 17 gm PO DAILY PRN PRN Reason: Constipation Stop: 01/24/23 16:19 Rosuvastatin Calcium (Rosuvastatin Calcium 10 Mg Tab) 10 mg PO HS [facility] Stop: 01/24/23 20:59 Last Admin: 12/26/22 21:46 Dose: 10 mg Vitamin D (Cholecalciferol 1,000 Units 25 Mcg Tab) 2,000 units PO [facility] Stop: 01/24/23 20:59 Last Admin: 12/26/22 21:47 Dose: 2,000 units
[2022-12-27] MEDS: ROSUVASTATIN CALCIUM 10 MG TAB PO SCH (20:08)
[2022-12-27] MEDS: CHOLECALCIFEROL 1,000 UNITS 25 MCG TAB PO SCH (20:08)
[2022-12-27] MEDS: ASPIRIN 81 MG ECTAB PO SCH (20:08)
[2022-12-28 07:22] LABS: Basophils # (auto) 0.01 K/uL (0.00-0.20); Basophils % (auto) 0.3 %; Eosinophils # (auto) 0.13 K/uL (0.00-0.50); Eosinophils % (auto) 3.7 %; Hematocrit (blood only) 36.7 % (42.0-52.0); Immature Granulocytes # (auto) 0.01 K/uL (0.01-0.20); Immature Granulocytes % (auto) 0.3 %; Lymphocytes # (auto) 0.93 K/uL (1.20-3.40); Lymphocytes % (auto) 26.1 %; Mean Corpuscular Hemoglobin 27.3 pg (25.0-34.0); Mean Corpuscular Hgb Conc 35.4 g/dL (32.0-36.0); Mean Corpuscular Volume 77.1 fL (80.0-100.0); Mean Platelet Volume 10.8 fL (9.4-12.4); Monocytes # (auto) 0.26 K/uL (0.11-0.59); Monocytes % (auto) 7.3 %; Neutrophils # (auto) 2.22 K/uL (1.40-6.50); Neutrophils % (auto) 62.3 %; Platelet Count 178 K/uL (130-400); RDW Coefficient of Variation 15.2 % (11.5-14.5); RDW Standard Deviation 42.5 fL (36.4-46.3); Red Blood Count 4.76 M/uL (4.70-6.10); White Blood Count 3.56 K/ul (4.8-10.8)
[2022-12-28] MEDS ORDERED: DOXYCYCLINE HYCLATE 100 MG in DEXTROSE 5% MINI-B 100 ML IV SCH (07:30)
[2022-12-28 07:44] LABS: Albumin Globulin Ratio 1.1 (0.9-2); Albumin Level 3.1 gm/dl (3.4-5.0); BUN Creatinine Ratio 18.6 (10-20); Bilirubin,Total 0.7 mg/dl (0.2-1.0); C Reactive Protein 12.1 mg/dl (0-0.5); Calcium 7.9 mg/dl (8.6-10.3); Creatinine Clr Calc Pharmacy 74.6 ml/min; Est GFR (African American) 99.7 ml/min; Est GFR (Non-African American) 86.1 ml/min; Globulin 2.7 gm/dl (2.5-4.0); Phosphorus 2.2 mg/dl (2.5-4.9); Potassium 3.3 mmol/L (3.5-5.1); Total Protein 5.8 gm/dl (6.0-8.3)
[2022-12-28] MEDS: FUROSEMIDE 20 MG TAB PO SCH (08:37)
[2022-12-28] MEDS: ENOXAPARIN INJ 40 MG/0.4 ML SYR SQ SCH (08:37)
[2022-12-28] MEDS: guaiFENesin 600 MG TABCR PO SCH (08:37)
[2022-12-28] MEDS: DOCUSATE SODIUM 100 MG CAP PO SCH (08:37)
[2022-12-28] MEDS: HYDROXYCHLOROQUINE SULFATE 200 MG TAB PO SCH (08:38)
[2022-12-28] MEDS: AMOXICILLIN/CLAVULANATE 875 MG TAB PO SCH ×2 (08:38→17:08)
[2022-12-28] MEDS ORDERED: POTASSIUM CHLORIDE CRTAB 20 MEQ TABCR PO STA (08:55)
[2022-12-28] MEDS ORDERED: ADVANCED PROBIOTIC 1250 MG CAPSULE PO SCH (09:00)
--- NOTE | 2022-12-28 09:01 | Hospitalist Progress Note ---
Date of Service December 28, 2022 Assessment & Plan (1) COVID-19: (2) Rhabdomyolysis: (3) Elevated troponin: (4) Hyperlipidemia: (5) Fall: (6) Alzheimer disease: (7) Rheumatoid arthritis: (8) Scalp contusion: (9) Constipation: Plan 86yoM with PMHx significant for RA, HLD, osteoporosis, age-related Alzheimer's disease admitted with a COVID infection after a fall and being found down on the ground for 2 days. COVID-19 infection Pneumonia Pt brought in after collapsing and being on the ground for 2 days. Notes URI symptoms for the past week. States was never vaccinated against covid. No increased oxygen requirement, oxygen saturations consistently 94% and above COVID + on testing, chest xray with no acute changes, chest CT unable to exclude pneumonia. Procalcitonin negative CRP 18.3 -> 12.1, ESR 52 Blood Cx x2 negat. in 48 hrs Given no increased oxygen requirement, remdesivir and decadron not indicated at this time. Started on Empiric Zosyn and doxycycline for possible pneumonia -> switch zosyn to augmentin Supportive treatments otherwise Rhabdomyolysis Pt states he was down on the ground for 2 days CK elevated at 1562 -> 703, now downtrended IV fluids AM repeat CK level Elevated troponin Trops trended down from 34.7 to 33.8 EKG with NSR Scalp contusion Noted on CT head Pt states this is chronic due to multiple falls Constipation moderate amount of stool noted on CT abd/pelvis Ordered daily colace BID with prn miralax RA- continue home hydroxychloroquine, holding home daily Voltaren BID. 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 Will hold while hospitalized and supplement with PRN non-NSAID medication. Osteoporosis- on fosamax once a week Vit D def-continue home supplement Edema- continue home lasix HLD- continue home statin CODE STATUS: Full code Diet: regular DVT prophylaxis: Lovenox SQ Admission and Anticipated Discharge Date Admission Date: December 25, 2022 Subjective Pt seen in follow up of . for COVID 19, found on the ground being there for 2 days Currently laying in bed in NAD Denies any fever, chills, chest pain, shortness of breath, abd. pain. He is breathing comfortably on RA He tells me that he is ready to go to rehab. CM involved. Review of Systems Review of Systems: All systems reviewed & are unremarkable except as noted in Subjective Physical Exam Physical Exam: General: WD/WN M in NAD HEENT: NC/AT, EOMI, PERRL CV: RRR Resp: no increased effort of breathing, CTAB, no wheezing, rhonchi Abdomen: Soft, nontender, + bowel sounds Extremities: No edema in lower extremities bilaterally. Neuro: awake and alert, and answering simple questions appropriately. Speech fluent, moves extremities but some difficulty with movement Skin: warm , dry Results & Data Results & Data Vital Signs (Past 12 Hours) Vital Signs Temp Pulse Pulse Resp BP Pulse Ox O2 Del Method 12/28/22 08:35 36.4 C L 68 16 154/84 H 95 Room Air 12/28/22 07:02 54 L 12/28/22 04:13 36.4 C L 56 L 16 177/82 H 98 Room Air 12/27/22 22:05 55 L Laboratory Results 12/28/22 12/28/22 12/28/22 Range/Units 06:49 06:49 06:49 WBC 3.56 L (4.8-10.8) K/ul RBC 4.76 (4.70-6.10) M/uL Hgb 13.0 L (14.0-18.0) g/dl Hct 36.7 L (42.0-52.0) % MCV 77.1 L (80.0-100.0) fL MCH 27.3 (25.0-34.0) pg MCHC 35.4 (32.0-36.0) g/dL RDW Std Deviation 42.5 (36.4-46.3) fL RDW Coeff of Daryl 15.2 H (11.5-14.5) % Plt Count 178 (130-400) K/uL MPV 10.8 (9.4-12.4) fL Immature Gran % (Auto) 0.3 % Neut % (Auto) 62.3 % Lymph % (Auto) 26.1 % [place]itt % (Auto) 7.3 % Eos % (Auto) 3.7 % Baso % (Auto) 0.3 % Neut # (Auto) 2.22 (1.40-6.50) K/uL Lymph # (Auto) 0.93 L (1.20-3.40) K/uL [place]itt # (Auto) 0.26 (0.11-0.59) K/uL Eos # (Auto) 0.13 (0.00-0.50) K/uL Baso # (Auto) 0.01 (0.00-0.20) K/uL Immature Gran # (Auto) 0.01 (0.01-0.20) K/uL ESR 52 H (0-20) mm/hr Sodium 140 (136-145) mmol/L Potassium 3.3 L (3.5-5.1) mmol/L Chloride 106 (98-107) mmol/L Carbon Dioxide 27 (21-32) mmol/L Anion Gap 7 (3-11) BUN 13 (6-23) mg/dl Creatinine 0.70 (0.6-1.4) mg/dl Est Cr Clr Drug Dosing 74.6 ml/min Est GFR ( Amer) 99.7 ml/min Est GFR (Non-Af Amer) 86.1 ml/min BUN/Creatinine Ratio 18.6 (10-20) Glucose 88 (70-99(Fasting)) mg/dl Calcium 7.9 L (8.6-10.3) mg/dl Phosphorus 2.2 L (2.5-4.9) mg/dl Magnesium Pending Total Bilirubin 0.7 (0.2-1.0) mg/dl AST 57 H (13-39) U/L ALT 35 (7-52) U/L Alkaline Phosphatase 37 (34-104) U/L C-Reactive Protein 12.10 H (0-0.5) mg/dl Total Protein 5.8 L (6.0-8.3) gm/dl Albumin 3.1 L (3.4-5.0) gm/dl Globulin 2.7 (2.5-4.0) gm/dl Albumin/Globulin Ratio 1.1 (0.9-2) Medications Administered Current Inpatient Medications Acetaminophen (Acetaminophen 325 Mg Tab) 650 mg PO Q6H PRN PRN Reason: Fever/Pain Stop: 01/24/23 22:01 Last Admin: 12/25/22 22:41 Dose: 650 mg Alendronate Sodium (Alendronate Sodium 70 Mg Tab) 70 mg PO Charlton@0700 [facility] Stop: 01/29/23 06:59 Amoxicillin/Clavulanate Potassium (Amoxicillin/Clavulanate 875 Mg Tab) 1 tab PO BIDM [facility]; Protocol Stop: 01/04/23 07:59 Last Admin: 12/28/22 08:38 Dose: 1 tab Aspirin (Aspirin 81 Mg Ectab) 81 mg PO HS [facility] Stop: 01/24/23 20:59 Last Admin: 12/27/22 20:08 Dose: 81 mg Benzonatate (Benzonatate 100 Mg Capsule) 100 mg PO TID PRN PRN Reason: Cough Stop: 01/24/23 19:02 Docusate Sodium (Docusate Sodium 100 Mg Cap) 100 mg PO BID [facility] Stop: 01/24/23 20:59 Last Admin: 12/28/22 08:37 Dose: 100 mg Enoxaparin Sodium (Enoxaparin Inj 40 Mg/0.4 Ml Syr) 40 mg SQ Q24H [facility] Stop: 01/25/23 07:59 Last Admin: 12/28/22 08:37 Dose: 40 mg Furosemide (Furosemide 20 Mg Tab) 20 mg PO DAILY [facility] Stop: 01/25/23 08:59 Last Admin: 12/28/22 08:37 Dose: 20 mg Guaifenesin (Guaifenesin 600 Mg Tabcr) 600 mg PO Q12 [facility] Stop: 01/24/23 20:59 Last Admin: 12/28/22 08:37 Dose: 600 mg Hydroxychloroquine Sulfate (Hydroxychloroquine Sulfate 200 Mg Tab) 200 mg PO DAILY [facility] Stop: 01/25/23 08:59 Last Admin: 12/28/22 08:38 Dose: 200 mg Doxycycline Hyclate 100 mg/ (Dextrose) 100 mls @ 50 mls/hr IV Q12H [facility] Stop: 01/01/23 19:29 Last Admin: 12/28/22 08:38 Dose: 50 mls/hr Ondansetron HCl (Ondansetron Inj 2 Mg/Ml 2 Ml Vial) 4 mg IV Q6H PRN PRN Reason: Nausea Stop: 01/24/23 16:19 Polyethylene Glycol (Polyethylene (Miralax) 17 Gm Pack) 17 gm PO DAILY PRN PRN Reason: Constipation Stop: 01/24/23 16:19 Potassium Chloride (Potassium Chloride Crtab 20 Meq Tabcr) 40 meq PO NOW STA Stop: 12/28/22 08:56 Rosuvastatin Calcium (Rosuvastatin Calcium 10 Mg Tab) 10 mg PO HS [facility] Stop: 01/24/23 20:59 Last Admin: 12/27/22 20:08 Dose: 10 mg Vitamin D (Cholecalciferol 1,000 Units 25 Mcg Tab) 2,000 units PO HS [facility] Stop: 01/24/23 20:59 Last Admin: 12/27/22 20:08 Dose: 2,000 units
[2022-12-28 09:02] LABS: Magnesium 1.9 mg/dl (1.7-2.4)
--- NOTE | 2022-12-28 17:09 | Discharge Summary ---
Date of Service December 28, 2022 Admission HPI Per Admitting Provider 86yoM with PMHx significant for RA, HLD, osteoporosis, age-related Alzheimer's disease admitted with a COVID infection after a fall and being found down on the ground for 2 days. History obtained from patient. Pt AAOx3. Pt brought in after collapsing and being on the ground for 2 days. He states that he has been having URI symptoms for the past week. States was never vaccinated against covid but thought his symptoms might be related. States he has a friend/caregiver who usually lives with him, but she has been gone to [place] for the past month and a half. Notes a Hx of recurrent falls and notes that he has a known scalp contusion. States that he has also fractured a clavicle in the past. Denies SOB or chest pain, abdominal pain, diarrhea or constipation. Admission Exam Per Admitting Provider General: Alert, orientedx3. No acute distress Skin: No noted rashes or bruises Psych: Appropriate mood and affect Neuro: some difficulty with movement HEENT: NC/AT CV: RRR, blowing murmur appreciated Resp: no increased effort of breathing. Abdomen: Soft, nontender Extremities: No edema in lower extremities bilaterally. Principal Diagnosis Fall, ambulatory dysfunction + COVID 19 Discharge Exam General: WD/WN M in NAD HEENT: NC/AT, EOMI, PERRL CV: RRR Resp: no increased effort of breathing, CTAB, no wheezing, rhonchi Abdomen: Soft, nontender, + bowel sounds Extremities: No edema in lower extremities bilaterally. Neuro: awake and alert, and answering simple questions appropriately. Speech fluent, moves extremities but some difficulty with movement Skin: warm , dry Discharge Data Allergies Allergy/AdvReac Type Severity Reaction Status Date / Time citalopram Allergy Unknown ON [facility] MED Verified 10/26/22 15:03 LIST pollen extracts Allergy Unknown ON [facility] MED Verified 10/26/22 15:03 LIST fluoxetine AdvReac Intermediate BAD PT Verified 10/26/22 15:03 REACTION infliximab [From Remicade] AdvReac Intermediate RIGORS & Verified 10/26/22 15:03 CHILLS Consultations 12/25/22 16:12 ED Decision to Admit Stat Ordered Studies 12/25/22 12:42 CT abd pelvis wo con Stat FINDINGS: Please note that the chest CT will be reported separately. No hemoperitoneum or pneumoperitoneum is present. Evaluation of the abdomen and pelvis is suboptimal on this unenhanced exam. There is no evidence for traumatic injury to the liver, spleen, adrenal glands, kidneys or pancreas. Several small left renal calculi are present. There are no ureteral calculi. There is no hydronephrosis. Probable cyst within the lower pole of the right kidney. There is no evidence for a bowel obstruction. There is no free fluid. No acute lumbar spine, pelvic or hip fracture is present. Moderate amount of stool within the colon and rectum is present. IMPRESSION: 1. No acute traumatic findings within the abdomen or pelvis on unenhanced exam. 2. Left-sided nephrolithiasis. No ureteral calculi or hydronephrosis. 3. Moderate amount of stool within the rectum and colon. No bowel obstruction. CT cervical spine wo con Stat FINDINGS: Multilevel degenerative changes without acute fracture or subluxation. The cervical soft tissues appear unremarkable. Secretions noted within the airway. The visualized lung apices appear clear. IMPRESSION: No acute cervical spine fracture or subluxation. CT chest diagnostic wo con Stat FINDINGS: No acute fractures within the chest. No pneumothorax. No pleural effusions. The central airways are patent. Punctate calcified granuloma within the right upper lobe. There are linear and patchy densities within the lungs posteriorly. This favors dependent change/atelectasis. A superimposed pneumonia is considered less likely but would be difficult to exclude. The abdominal structures will be reported on the same day abdomen and pelvis CT. Normal esophagus. Normal thyroid gland. Stable mildly enlarged mediastinal lymph nodes. Dominant precarinal lymph node measures up to 12 mm in short axis diameter. The heart remains mildly enlarged. No pericardial effusion. There are moderate coronary artery calcifications noted. Borderline aneurysmal dilatation of the ascending thoracic aorta measuring up to 3.9 cm in diameter. There is mild calcified plaque within the thoracic aorta. No mediastinal hematoma. IMPRESSION: 1. No acute traumatic process within the chest. 2. Mild mediastinal lymphadenopathy, unchanged. 3. Borderline aneurysmal dilatation of the ascending thoracic aorta measures up to 3.9 cm in diameter. 4. There are linear and patchy densities within the lungs posteriorly. This favors dependent change/atelectasis. A superimposed pneumonia is considered less likely but would be difficult to exclude. CT head/brain wo con Stat FINDINGS: No acute intracranial hemorrhage, midline shift or mass effect is present. The ventricular system is unremarkable. The basal cisterns are patent. No extra-axial collections are present. There are no findings to suggest acute dural sinus thrombosis or acute territorial infarct. A left frontal scalp contusion is present. There is no acute calvarial fracture. There is mild ethmoid sinus mucosal thickening. Small air-fluid levels within the sinuses are present. IMPRESSION: 1. No acute intracranial findings. 2. Left frontal scalp contusion. No acute calvarial fracture. Hospital Course (1) COVID-19: (2) Rhabdomyolysis: (3) Elevated troponin: (4) Hyperlipidemia: (5) Fall: (6) Alzheimer disease: (7) Rheumatoid arthritis: (8) Scalp contusion: (9) Constipation: Plan 86yoM with PMHx significant for RA, HLD, osteoporosis, age-related Alzheimer's disease admitted with a COVID infection after a fall and being found down on the ground for 2 days. COVID-19 infection Pneumonia Pt brought in after collapsing and being on the ground for 2 days. Notes URI symptoms for the past week. States was never vaccinated against covid. No increased oxygen requirement, oxygen saturations consistently 94% and above COVID + on testing, chest xray with no acute changes, chest CT unable to exclude pneumonia. Procalcitonin negative CRP 18.3 -> 12.1, ESR 52 Blood Cx x2 negat. in 48 hrs Given no increased oxygen requirement, remdesivir and decadron not indicated at this time. Started on Empiric Zosyn and doxycycline for possible pneumonia -> switched zosyn to augmentin Supportive treatments otherwise Rhabdomyolysis Pt states he was down on the ground for 2 days CK elevated at 1562 -> 703, now downtrended received IV fluids Elevated troponin Trops trended down from 34.7 to 33.8 EKG with NSR Scalp contusion Noted on CT head Pt states this is chronic due to multiple falls Constipation moderate amount of stool noted on CT abd/pelvis Ordered daily colace BID with prn miralax Aneurysm Recommend outpt followup of ascending thoracic aorta aneurysm noted on Chest CT. RA- continue home hydroxychloroquine, holding home daily Voltaren BID. 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 Will hold while hospitalized and supplement with PRN non-NSAID medication. Osteoporosis- on fosamax once a week Vit D def-continue home supplement Edema- continue home lasix HLD- continue home statin Total Time Total Time Spent Total Time Spent (In Minutes): 40 Discharge Plan Discharge Items Patient Disposition: Transfer Inpatient Rehab Fac Reason For Visit: FALL Discharge Diagnosis: Fall, ambulatory dysfunction + COVID 19 Activity: Per Instructions section Non-emergency contact: Primary Care Provider Call non-emergency contact if: you have any medication questions and your symptoms worsen Follow-up/Referrals: Tavo Flaherty DO [Primary Care Provider] - Diet: Regular Addtl Attending Provider Instructions: Follow up with primary care physician in the rehab and then within 1 week after discharge from the rehab hospital. Finish antibiotic treatment as prescribed. Recommend taking guaifenesin and using flutter valve. Pending Studies at Discharge: Yes Studies:: final blood cultx results Stand-Alone Forms: My [facility] [employer] Skilled Items Patient informed of condition?: Yes DNR: No Discharge Level of Care: Acute rehab Communicable Disease: Yes Discharge Prognosis: Stable Lines: None Urinary Catheter: No Medications and DC Order Prescriptions: New amoxicillin-pot clavulanate 875-125 mg Tablet 1 tab PO BIDM 3 Days Qty: 6 0RF doxycycline hyclate 100 mg Capsule 100 mg PO Q12 3 Days Qty: 6 0RF guaifenesin [Mucinex] 600 mg Tablet Extended Release 12hr 600 mg PO Q12 5 Days Qty: 10 0RF Continued [id number] [Centrum Silver Men] 300-600-300 mcg tablet 1 tab PO HS aspirin [Adult Low Dose Aspirin] 81 mg tablet,delayed release (DR/EC) 81 mg PO HS cholecalciferol (vitamin D3) [Vitamin D3] 50 mcg (2,000 unit) Tablet 50 mcg PO HS docusate sodium [Colace] 100 mg capsule 100 mg PO DAILY PRN (Reason: Constipation) furosemide 20 mg Tablet 20 mg PO DAILY hydroxychloroquine 200 mg Tablet 200 mg PO DAILY rosuvastatin 10 mg Tablet 10 mg PO HS alendronate [Fosamax] 70 mg Tablet 70 mg PO WK Discontinued diclofenac sodium 75 mg Tablet,Delayed Release (Dr/Ec) 75 mg PO BID Discharge Orders: Discharge Order (Routine); Ordered 12/28/22 Ordered By: Eh Salinas Admission Data Admit Date/Time: 12/25/22 16:21 Attending Provider: Eh Salinas Admit Provider: Carmen Manley Primary Care Provider: Tavo Flaherty Other Providers: Carmen Manley ; [facility]
[2022-12-28] MEDS ORDERED: DOXYCYCLINE HYCLATE 100 MG CAP PO SCH (21:00)
[2022-12-30] MEDS ORDERED: ALENDRONATE SODIUM 70 MG TAB PO SCH (07:00)
== END 2022-12-28 18:22 | DRG 177 ==
LOC: ED 11:59 → SUATTDRO 16:21 → 2W 16:21